=== PATIENT | female | born 1940 | race Caucasian/White ===

== ENCOUNTER → 2016-09-15 | Outpatient (CLI) | payer OTHER ==
--- NOTE | 2016-09-15 19:09 | MR ---
MRI of the Lumbar Spine Clinical Indications: Low back pain radiating into legs, right worse than left, weakness, instability . Right total hip arthroplasty on June 23, 2016. M54.16. Technique: Sagittal and axial images of the lumbar spine were acquired using T1-weighted and fast T2 -weighted sequences. Inversion recovery sagittal images were obtained. Findings: Compare May 12, 2007. Intervertebral disks are degenerated at all levels. Findings ar e mild at T10-T11, T11-T12, T12-L1, L1-L2, and L2-L3. Spinal canal is developmentally roomy. Conus me dullaris is at the level of T12-L1, and no masses are found. No compression fracture. No aneurysm of the abdominal aorta. L3-L4: Severe features of chronic disk degeneration are worse than 2007. Intervertebral disk now show s severe loss of height, with mild posterior subluxation of L4 under L3. Central spinal stenosis is m ild, but lateral recesses of the canal are moderately stenotic, with osteophytes from degenerated fac et joints and hypertrophied ligamentum flavum adding to the stenosis. L3-L4: Intervertebral disk shows severe loss of height, diffusely bulging annulus fibrosis and hypert rophied ligamentum flavum combined to cause moderate spinal stenosis, worse than 2007. L5-S1: Disk shows greater degenerative loss of signal than 2007, but diffusely bulging annulus fibros is and osteophytes remain mild. Osteophytic impingement of left foramen is slightly worse than 2007. Impression: Progression of chronic disk degeneration and spinal stenosis at L3-L4 and L4-L5.
--- NOTE | 2016-09-15 19:13 | MR ---
MRI of the pelvic without contrast History: Right total hip arthroplasty on June 23, 2016. Currently has low back pain radiating into legs, right greater than left. Sacroiliitis, M46.1. Technique: Sagittal, coronal, axial, and corrected coronal images were obtained using T1-weighted, f at-suppressed T2-weighted, and inversion recovery sequences. Findings: Artifact from distortion of magnetic field related to the right hip arthroplasty causes de gradation of details near the right hip. The left hip is moderately severely degenerated, with loss o f thickness and subchondral cysts. The cystic erosions are worse on the femoral side of the joint. Sa croiliac joints are mildly degenerated, with no edema and no erosions. Symphysis pubis is normal. No evidence of fracture. Uterus and ovaries are absent. No masses are identified in the pelvis. Moderate volume of stool is present in the rectum. Impression: 1. Right hip replacement. 2. Moderately severe degenerative arthritis of left hip. 3. Hysterectomy and oophorectomy.
== END ==
LOC: FIMAGING 15:11
PROVIDERS: ATTEND Orthopaedic Surgery
DX: M51.36 Other intervertebral disc degeneration, lumbar region (principal); M25.78 Osteophyte, vertebrae; M13.852 Other specified arthritis, left hip; Z96.641 Presence of right artificial hip joint; Z90.710 Acquired absence of both cervix and uterus; Z90.722 Acquired absence of ovaries, bilateral

== ENCOUNTER 2016-10-14 12:56 | Inpatient (IN) | payer OTHER ==
--- NOTE | 2016-10-14 13:16 | EDPHY ---
H & P Time Seen by Provider: 10/14/16 13:08 HPI/ROS: CHIEF COMPLAINT: Dyspnea HISTORY OF PRESENT ILLNESS: This patient is a 76 year old female who was referred to the Emergency Department by an Urgent Care Clinic for exertional dyspnea beginning 1-2 weeks prior to arrival and worsening over time. She tells me that she has historically been active and enjoys hiking, but over the past two weeks she has had trouble walking for a significant distance without experiencing shortness of breath. She also describes intermittent episodes of dyspnea while sleeping. She complains of associated chest discomfort but is unable to describe the type of discomfort or if the discomfort is intermittent or constant. She reports a feeling that she is off-balance. 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 She denies headache, nausea, vomiting, diarrhea, or chills. 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 No history of CAD, diabetes, or atrial fibrillation. 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 Social History: Never smoked. Daughter at bedside. Smoking Status: Never smoked Physical Exam: General Appearance: Alert, nontoxic Eyes: Pupils equal and round, no conjunctival pallor or injection ENT, Mouth: Mucous membranes moist Neck: Normal inspection Respiratory: Lungs are clear to auscultation Cardiovascular: regular tachycardia Gastrointestinal: Abdomen is soft and non- tender Neurological: A&O, nonfocal Skin: Warm and dry, no rash Extremities: Nontender, no pedal edema Psychiatric: Flat affect, tangential thought process and difficulty following conversation. Constitutional: Initial Vital Signs Temperature (C) 36.7 C 10/14/16 13:00 Heart Rate 138 H 10/14/16 13:00 Respiratory Rate 26 H 10/14/16 13:00 Blood Pressure 115/93 H 10/14/16 13:00 O2 Sat (%) 96 10/14/16 13:00 O2 Delivery Mode Room Air Allergies/Adverse Reactions: meperidine HCl [From Demerol] Allergy (Verified 10/14/16 12:57) Home Medications: Medication Instructions Recorded Herbals/Supplements -Info Only 1 each PO AD 12/24/12 Ibuprofen [Motrin (*)] 200 mg PO BID PRN 12/24/12 Levothyroxine [Synthroid 75 mcg 75 mcg PO DAILY06 12/24/12 (*)] clonazePAM [klonoPIN (*)] 1 mg PO DAILY PRN 12/24/12 Cholecalciferol (Vitamin D3) 2,000 unit PO DAILY 08/31/14 [Vitamin D3] busPIRone [Buspar (*)] 5 mg PO BID PRN 05/19/16 lamOTRIGine [Lamotrigine] 150 mg PO DAILY 10/14/16 lamOTRIGine [Lamotrigine] 200 mg PO HS 10/14/16 Medical Decision Making - Diagnostics EKG Interpretation: EKG interpreted by me reveals narrow complex tachycardia, rate 136, poor R wave progression. Imaging: Study: X-ray of the chest. Chest x-ray reviewed by me reveals left lower lobe infiltrate. The study was read by Dr. Janes Carlton, radiology, who interprets the study as: early CHF. Study: CTA of the chest Indication: Dyspnea, elevated D-dimer Results: CT angiogram of the chest was obtained. The results of the study are: 1. CHF with early pulmonary edema. 2. Coronary artery disease. 3. Chronically elevated right heart pressures 4. No acute or chronic pulmonary embolic disease. The study was read by the radiologist, Dr. Janes Carlton. I viewed the images myself on the PACS system. Study: Echocardiogram Indication:chest pain,SOB Procedure: Limited transthoracic 2D echocardiogram. A limited transthoracic echocardiogram was performed by the echocardiogram technologists and interpreted by Dr. Dimitri Shah. Results: Severe mitral regurgitation and hypokinesis the anterior wall, apex and septum. ED Course/Re-evaluation: This 76 year old female presents with dyspnea on exertion and intermittently while at rest. No known history of coronary artery disease. Plan for chest x-ray , EKG, echocardiogram, and labs including Troponin and D-dimer. Stat EKG reveals a narrow complex tachycardia, rate 136, most likely atrial flutter. IV established. 500ml IV NS administered to see if HR will slow down with IVF. No change. 1406: Labs reviewed. Troponin is negative. D-dimer is elevated at 0.62. CTA of the chest has been ordered to investigate possible pulmonary embolism and is negative. Stat echocardiogram reveals severe mitral regurgitation and hypokinesis the anterior wall, apex and septum. 1428: Consultation with Dr. Dimitri Shah, auto body worker, who will visit the patient in the ED. 1449: Dr. Dimitri Shah has visited the patient in the ED and reviewed echocardiography results. He recommends admission to the hospitalist and will proceed subsequent cardiac catheterization in 1-2 days. I discussed this plan with the patient and her daughter who are agreeable to this. Diltiazem 10mg IV given, followed by a Diltiazem drip. Repeat heart rate 100 to 110, remains in atrial fibrillation, blood pressure adequate. 1500: Consultation with Dr. Yasmine Kelly, hospitalist, who accepts admission. This patient utilized 40 minutes of critical care time exclusive of unbundled procedures. Differential Diagnosis: Differential diagnosis includes though it is not limited to pneumonia, pneumothorax, pulmonary embolism, aortic dissection, pericarditis, acute coronary syndrome. - Data Points Laboratory Results: Laboratory Results 10/14/16 13:30 10/14/16 13:30 10/14/16 10/14/16 10/14/16 13:38 13:30 13:30 WBC RBC Hgb Hct MCV MCH MCHC RDW Plt Count MPV Neut % (Auto) Lymph % (Auto) [place] % (Auto) Eos % (Auto) Baso % (Auto) Nucleat RBC Rel Count Absolute Neuts (auto) Absolute Lymphs (auto) Absolute Monos (auto) Absolute Eos (auto) Absolute Basos (auto) Absolute Nucleated RBC Immature Gran % Immature Gran # PT 13.6 SEC SEC (12.0-15.0) INR 1.05 (0.83-1.16) APTT 28.6 SEC SEC (23.0-38.0) D-Dimer Heparin Anti-Xa, Unfract Pending Sodium 141 mEq/L mEq/L (134-144) Potassium 5.1 mEq/L mEq/L (3.5-5.2) Chloride 105 mEq/L mEq/L (97-110) Carbon Dioxide 26 mEq/l mEq/l (22-31) Anion Gap 10 mEq/L mEq/L (8-16) BUN 14 mg/dL mg/dL (7-23) Creatinine 0.7 mg/dL mg/dL (0.6-1.0) Estimated GFR > 60 Glucose 75 mg/dL mg/dL (70-100) Calcium 10.0 mg/dL mg/dL (8.5-10.4) Troponin I < 0.012 ng/mL ng/mL (0-0.034) NT-Pro-B Natriuret Pep 3160 pg/mL H pg/mL (0-125) TSH 3.090 uIU/mL uIU/mL (0.465-4.680) Lamotrigine Pending 10/14/16 10/14/16 13:30 13:30 WBC 5.50 10^3/uL 10^3/uL (3.80-9.50) RBC 4.39 10^6/uL 10^6/uL (4.18-5.33) Hgb 13.0 g/dL g/dL (12.6-16.3) Hct 38.8 % % (38.0-47.0) MCV 88.4 fL fL (81.5-99.8) MCH 29.6 pg pg (27.9-34.1) MCHC 33.5 g/dL g/dL (32.4-36.7) RDW 16.7 % H % (11.5-15.2) Plt Count 215 10^3/uL 10^3/uL (150-400) MPV 10.0 fL fL (8.7-11.7) Neut % (Auto) 57.4 % % (39.3-74.2) Lymph % (Auto) 31.5 % % (15.0-45.0) [place] % (Auto) 8.7 % % (4.5-13.0) Eos % (Auto) 1.5 % % (0.6-7.6) Baso % (Auto) 0.7 % % (0.3-1.7) Nucleat RBC Rel Count 0.0 % % (0.0-0.2) Absolute Neuts (auto) 3.16 10^3/uL 10^3/uL (1.70-6.50) Absolute Lymphs (auto) 1.73 10^3/uL 10^3/uL (1.00-3.00) Absolute Monos (auto) 0.48 10^3/uL 10^3/uL (0.30-0.80) Absolute Eos (auto) 0.08 10^3/uL 10^3/uL (0.03-0.40) Absolute Basos (auto) 0.04 10^3/uL 10^3/uL (0.02-0.10) Absolute Nucleated RBC 0.00 10^3/uL 10^3/uL (0-0.01) Immature Gran % 0.2 % % (0.0-1.1) Immature Gran # 0.01 10^3/uL 10^3/uL (0.00-0.10) PT INR APTT D-Dimer 0.62 ug/mLFEU H ug/mLFEU (0.00-0.50) Heparin Anti-Xa, Unfract Sodium Potassium Chloride Carbon Dioxide Anion Gap BUN Creatinine Estimated GFR Glucose Calcium Troponin I NT-Pro-B Natriuret Pep TSH Lamotrigine Medications Given: Discontinued Medications Carvedilol (Coreg) 3.125 mg PO BID ONE Stop: 10/14/16 15:17 Last Admin: 10/14/16 16:27 Dose: Not Given Diltiazem HCl (Cardizem 25 Mg/5 Ml Vial) 10 mg IVP EDNOW ONE Stop: 10/14/16 14:51 Last Admin: 10/14/16 15:15 Dose: 10 mg Furosemide (Lasix Injection) 20 mg IVP EDNOW ONE Stop: 10/14/16 15:19 Last Admin: 10/14/16 16:30 Dose: 20 mg Heparin Sodium (Porcine) (Heparin Injection) 0 unit IVP ONCE ONE PRN Reason: Protocol Stop: 10/14/16 16:21 Last Admin: 10/14/16 17:38 Dose: 3,200 units Sodium Chloride (Ns) 1,000 mls @ 0 mls/hr IV ONCE ONE PRN Reason: Wide Open Stop: 10/14/16 13:36 Last Admin: 10/14/16 13:38 Dose: 1,000 mls Departure - Departure Disposition: [facility] Clinical Impression: Atrial flutter with rapid ventricular response Dyspnea Qualifiers: Dyspnea type: dyspnea on exertion Qualified Code(s): R06.09 - Other forms of dyspnea Congestive heart failure Qualifiers: Congestive heart failure type: unspecified congestive heart failure type Congestive heart failure chronicity: unspecified congestive heart failure chronicity Qualified Code(s): I50.9 - Heart failure, unspecified CAD (coronary artery disease) Qualifiers: Coronary Disease-Associated Artery/Lesion type: unspecified vessel or lesion type [place] vs. transplanted heart: [place] heart Associated angina: without angina Qualified Code(s): I25.10 - Atherosclerotic heart disease of [place] coronary artery without angina pectoris Condition: Fair Report Scribed for: Jodie Jeffers Report Scribed by: Kathya Carter Date of Report: 10/14/16 Time of Report: 13:16 Physician Review and Approval Statement: 10/14/16 13:16 Portions of this note were transcribed by a pediatrician/medical doctor. I personally performed a history, physical exam, medical decision making, and confirmed accuracy of information the transcribed note.
--- NOTE | 2016-10-14 13:19 | CPEKG ---
Heart Rate: 136 RR Interval: 441 P-R Interval: 82 QRSD Interval: 100 QT Interval: 324 QTC Interval: 488 P [place]: 0 QRS [place]: 106 T Wave [place]: 80 EKG Severity - ABNORMAL ECG - EKG Impression: atrial flutter EKG Impression: LATERAL INFARCT, AGE INDETERMINATE EKG Impression: BORDERLINE PROLONGED QT INTERVAL Electronically Signed By: Jodie Jeffers 14-Oct-2016 19:45:28
[2016-10-14] MEDS ORDERED: NS 1,000 ML IV ONE (13:35)
[2016-10-14 13:40] LABS: % IMMATURE GRANULYOCYTES 0.2 % (0.0-1.1); ABSOLUTE IMMATURE GRANULOCYTES 0.01 10^3/uL (0.00-0.10); ADD DIFF? NO; ADD MORPH? NO; ADD SCAN? NO; ATYPICAL LYMPHOCYTE FLAG 20 (0-99); FRAGMENT RBC FLAG 0 (0-99); HEMATOCRIT 38.8 % (38.0-47.0); LEFT SHIFT FLG 10 (0-99); LIPEMIA HEMOLYSIS FLAG 80 (0-99); MEAN CELL HEMOGLOBIN 29.6 pg (27.9-34.1); MEAN CELL HEMOGLOBIN CONCENTR. 33.5 g/dL (32.4-36.7); MEAN CELL VOLUME 88.4 fL (81.5-99.8); PLATELET CLUMPS FLAG 0 (0-99); PLATELET COUNT 215 10^3/uL (150-400); RED BLOOD CELL COUNT 4.39 10^6/uL (4.18-5.33); RED CELL DISTRIBUTION WIDTH 16.7 % (11.5-15.2)
[2016-10-14 14:00] LABS: ANION GAP 10 mEq/L (8-16); CARBON DIOXIDE 26 mEq/l (22-31); CHLORIDE 105 mEq/L (97-110); CREATININE 0.7 mg/dL (0.6-1.0); GLOMERULAR FILTRATION RATE > 60; GLUCOSE 75 mg/dL (70-100); POTASSIUM 5.1 mEq/L (3.5-5.2); SODIUM 141 mEq/L (134-144)
[2016-10-14] MEDS ORDERED: IOPAMIDOL (ISOVUE 370) 100 ML BTL IV ONE (14:08)
[2016-10-14 14:12] LABS: TROPONIN I < 0.012 ng/mL (0-0.034)
[2016-10-14] MEDS ORDERED: DILTIAZEM 25 MG/5 ML VIAL IVP ONE (14:50)
--- NOTE | 2016-10-14 15:04 | ECHO ---
[id number] + + [address] : : [place] [address] : : [phone] + + Adult Echocardiographic Report + ----+ :Name: TAY PLATA PStudy Date: 10/14/2016 01:57 PM : : Hospital Admission Number: [id number] Location : ER: :: 1940 Gender: Female Height: 66 in : :Age: 76 yrs Race: WH Weight: 111 lb : :Reason For Study: New onset flutter/tachycardia : : BSA: 1.6 meters2 : :History: Breast implants : + ----+ MMode/2D Measurements \T\ Calculations MV Diam: 3.6 cmLVOT diam: 1.9 cm LVLd ap4: 6.8 cm SV(MOD-sp4): 11.0 ml LVOT area: 2.8 cm2 EDV(MOD-sp4): 53.0 ml LVLs ap4: 6.0 cm ESV(MOD-sp4): 42.0 ml EF(MOD-sp4): 20.8 % Normal Measurement Values: + + :LVIDd (3.5-5.7cm) IVSd (0.6-1.1cm) LVPWd (0.6-1.1cm) Aortic Root (2.0-3.7cm)Left Atrium (1.5-4.0cm): :LV Vol(d) (76-115ml) LV Vol(s) (29-48ml) Ejec Fraction (50-65%)PV Tahir (0.6- 1.2m/s) TV Tahir (0.4-1.0m/s) : :MV E Tahir (0.8-1.0m/s)MV A Tahir (0.3-1.0m/s)LVOT Tahir (0.7-1.2m/s) Asc Ao Tahir ( 0.9-1.8m/s) : + + Doppler Measurements \T\ Calculations MV V2 max: Ao V2 max: LV V1 max: MR max tahir: 109.0 cm/sec 86.3 cm/sec 49.6 cm/sec 490.0 cm/sec MV max P.8 mmHg Ao max PG: LV V1 max PG: MR max PG: MV V2 mean: 3.0 mmHg 0.98 mmHg 96.0 mmHg 58.9 cm/sec Ao mean PG: LV V1 mean PG: MV mean P.0 mmHg 1.5 mmHg 1.0 mmHg MV V2 VTI: 10.3 cm Ao V2 mean: LV V1 mean: MV area (1 diam): 57.0 cm/sec 32.3 cm/sec 10.2 cm2 Ao V2 VTI: 10.2 cmLV V1 VTI: 5.5 cm ALLISON(I,D): 1.5 cm2 MVA(VTI): 1.5 cm2 MV Flow area(1diam): ALLISON(V,D): 1.6 cm2 10.2 cm2 MR(RF 1 diam): SV(MV 1 diam): TR max tahir: RF(MV,LVOT) 31.6 % 104.8 ml 251.0 cm/sec (1diam): 0.85 SI(MV 1 diam): TR max P.3 ml/m2 25.2 mmHg SV(LVOT): 15.5 ml RAP systole: 10.0 mmHg RVSP(TR): 35.2 mmHg Left Ventricle The left ventricle is normal in size. There is normal left ventricular wall thickness. EF estimate is 20-25%. LV mid/apical inferoseptal/inferior rubio are akinetic. LV basal and mid anterior rubio are akinetic. LV entire apex is akinetic. Right Ventricle The right ventricle is normal in size and function. Atria The left atrium is moderate to severely dilated. The right atrium is severely dilated. The interatrial septum is intact with no evidence for an atrial septal defect. Mitral Valve The mitral valve is normal in structure and function. There is no evidence of mitral valve prolapse. There is no mitral valve stenosis. There is moderate to severe mitral regurgitation. Tricuspid Valve Normal tricuspid valve. There is mild tricuspid regurgitation. Right ventricular systolic pressure is normal. Right ventricular systolic pressure is 40-45mmHg. Aortic Valve The aortic valve opens well. There is no aortic stenosis. There is no aortic insufficiency. Pulmonic Valve The pulmonic valve is not well visualized. There is no pulmonic valvular regurgitation. Great Vessels The aortic root is normal size. Pericardium/Pleural There is no pericardial effusion. Conclusion A complete two-dimensional transthoracic echocardiogram was performed (2D, M-mode, Doppler and color flow Doppler). Pt with breast implants - no parasternal windows for evaluation. The patient has a dilated IVC. LV mid/apical inferoseptal/inferior rubio are akinetic. LV basal and mid anterior rubio are akinetic. LV entire apex is akinetic. EF estimate is 20-25%. The left atrium is moderate to severely dilated. The right atrium is severely dilated. There is moderate to severe mitral regurgitation. There is mild tricuspid regurgitation. Right ventricular systolic pressure is 40-45mmHg. Final Reading Physician: Rama López signed on 10/14/2016 03:03 PM Ordering Physician: ROSIE HERNANDEZ Performed By: Bhakti Montanez RDCS
[2016-10-14] MEDS ORDERED: CARVEDILOL 3.125 MG TAB PO ONE (15:16)
[2016-10-14] MEDS ORDERED: FUROSEMIDE 20 MG/2 ML VIAL IVP ONE (15:18)
--- NOTE | 2016-10-14 15:57 | CPEKG ---
Heart Rate: 107 RR Interval: 561 QRSD Interval: 84 QT Interval: 348 QTC Interval: 465 QRS [place]: 114 T Wave [place]: 136 EKG Severity - ABNORMAL ECG - EKG Impression: ATRIAL FLUTTER, A-RATE 283 EKG Impression: RIGHT AXIS DEVIATION EKG Impression: LOW VOLTAGE IN FRONTAL LEADS EKG Impression: BORDERLINE R WAVE PROGRESSION, ANTERIOR LEADS EKG Impression: REPOL ABNRM SUGGESTS ISCHEMIA, ANT-LAT LEADS Electronically Signed By: Jodie Jeffers 14-Oct-2016 19:44:26
[2016-10-14] MEDS ORDERED: HEPARIN 10,000 UNIT/10 ML MDV IVP PRN (16:20)
[2016-10-14] MEDS ORDERED: ONDANSETRON 4 MG/2 ML VIAL IVP PRN (16:20)
[2016-10-14] MEDS ORDERED: HEPARIN 10,000 UNIT/10 ML MDV IVP ONE (16:20)
[2016-10-14] MEDS ORDERED: TEMAZEPAM 15 MG CAP PO PRN (16:20)
[2016-10-14] MEDS ORDERED: ACETAMINOPHEN 325 MG TAB PO PRN (16:20)
[2016-10-14] MEDS ORDERED: ONDANSETRON DISINTEGRATING 4 MG TAB PO PRN (16:20)
--- NOTE | 2016-10-14 16:25 | GCON ---
[f rep st] CONSULTATION CARDIAC CONSULTATION DATE OF CONSULTATION: 10/14/2016 CHIEF COMPLAINT: Increasing shortness of breath. HPI: This is a 76-year-old female, who comes to the emergency room complaining of dyspnea. Apparen tly, this has been happening for at least 1-2 weeks. She is here with her daughter, who confirmed t hat there have been no acute issues. She specifically denies chest pain, palpitations, syncope. Sh e has no peripheral edema. Has some apparent orthopnea and PND. In speaking to her, she has no [facility] physicians, but sees many "specialists." She has a history of traumatic brain injury with seizures and cognitive defects. She is on Lamictal by Dr. Dumont. She has apparently had a pos sible history of sleep apnea, followed by the [facility] in [place]. She apparently did not shyam ate CPAP and may have been on oxygen in the past. She has had no active bleeding issues. She is hy pothyroid and is on Synthroid. Her EKG today suggests a 2:1 atrial flutter with periods of atrial f ibrillation. This is unknown chronicity. In speaking to her, she denies any history of known coron christiano artery disease, diabetes, hypertension, hyperlipidemia. She is not being treated for any of the se. She denies any recent fevers, chills, nausea, vomiting. Apparently, according to her daughter, she does not seem to eat consistently. She has never been a smoker. PAST MEDICAL HISTORY: Hypothyroid, traumatic brain injury 1994 with cognitive issues, intermittent seizures. SOCIAL HISTORY: Nonsmoker. EXAM: GENERALLY: She is a talkative woman, who appears to be quite thin and is in no acute distres s at this time. VITAL SIGNS: Initially, her blood pressure is 126/92, heart rate to 130s. After d iltiazem, her heart rates came down into the 90s. HEENT: Mouth and oropharynx were moist. NECK: Supple without lymphadenopathy. LUNGS: Clear. She had some kyphosis, but no palpable chest pain. CARDIAC: She had irregular rhythm with systolic murmur. ABDOMEN: Soft, nontender. MUSCULOSKELET AL: Showed no edema. DATA REVIEWED: Echo was done that showed significant cardiomyopathy, probably ischemic, with region al wall motion abnormalities of apical hypokinesis. She also has significant mitral and tricuspid in sufficiency with increased RV, RA size. Pulmonary pressure is 40-45 mmHg. No pericardial effusion. ASSESSMENT: 1. Atrial fibrillation with rapid ventricular response, unknown chronicity. This could have been a s recent as a few weeks or as long-term as possibly months. She has had no syncope. She has some P ND and orthopnea, but no pedal edema. Today, there has been no acute event that we could identify. At this point, she will receive diltiazem for rate control. There are no issues of bleeding, and I will place her on a heparin drip. 2. Probable coronary artery disease. Her troponins are normal at this time, although echocardiogra m suggests ischemic wall motion abnormalities. These need to be further addressed, possibly with ca rdiac catheterization but at this point, an acute cath is not necessary. I would like to get her mo re stable with heart rate, rhythm, and diuresis. We will treat her with beta-david, MARIELY-inhibitor , and anticoagulation. 3. Atrial fibrillation once again, unknown chronicity, rate control with anticoagulation. 4. History of hypothyroidism. Her TSH is 3.0. 5. History of traumatic brain injury in 1993 with chronic cognitive defects and seizures. Her last seizure was a few days ago. She is on Lamictal, followed by Dr. Dumont by her report. Further care depending on her clinical course. Her and her daughter's questions were answered. /[id number]/MODL
[2016-10-14] MEDS ORDERED: DILTIAZEM 125 MG in D5W 125 ML IV SCH (16:30)
[2016-10-14] MEDS ORDERED: busPIRone 5 MG TAB PO PRN (16:46)
[2016-10-14 16:59] LABS: APTT 28.6 SEC (23.0-38.0); INR 1.05 (0.83-1.16); PROTIME(PATIENT) 13.6 SEC (12.0-15.0)
--- NOTE | 2016-10-14 17:30 | GHP ---
[f rep st] HISTORY AND PHYSICAL DATE OF ADMISSION: 10/14/2016 CHIEF COMPLAINT: Shortness of breath. HISTORY OF PRESENT ILLNESS: The patient is a 76-year-old female with a history of traumatic brain injury, seizure disorder, and obstructive sleep apnea who presents to the emergency department complaining of shortness of breath. She was initially seen in urgent care clinic for exertional dyspnea which has been present over the past 1-2 weeks. She endorses orthopnea and paroxysmal nocturnal dyspnea though she denies lower extremity edema. Today she felt an abrupt change in her symptoms, feeling heart palpitations and acutely worsening shortness of breath which prompted her to visit Urgent Care. She also has a history of traumatic brain injury with a subsequent seizure disorder for which she takes Lamictal. She states her last seizure was a week ago though it has been some time since she has had a grand mal seizure. She reports significant increased stress in her life and describes a son with some type of psychosis who was having acute worsening of his own symptoms, and the patient states this seemed to exacerbate her medical problems as well due to the stress. At this time, she denies headache, vision changes, chest pain, abdominal pain, nausea, vomiting, diarrhea, or fevers. In the emergency department, she was found to be in rapid atrial flutter. She was given 10 mg of IV diltiazem which slowed her rate down to approximately 100. An echocardiogram was done in the ER, which revealed marked abnormalities with hypokinesis of the left ventricle, and a cardiology consult was obtained. She was admitted to the PCU for further management. PAST MEDICAL HISTORY: 1. Traumatic brain injury in 1993 requiring craniotomy. 2. Obstructive sleep apnea. 3. History of depression. 4. Seizure disorder, on antiepileptics. 5. Hypothyroidism, status post thyroidectomy. PAST SURGICAL HISTORY: 1. Thyroidectomy. 2. Craniotomy. 3. Multiple minor surgeries including varicose vein stripping. MEDICATIONS: Please see [facility] for complete updated outpatient medication list. ALLERGIES: Meperidine. FAMILY HISTORY: Her maternal grandmother had breast cancer. Her father had bone cancer. Her mother had liver cancer. SOCIAL HISTORY: The patient lives independently. She is retired. She denies tobacco. She reports occasional alcohol use. REVIEW OF SYSTEMS: A 10-point review of systems was performed and is negative except as per HPI. OBJECTIVE: VITAL SIGNS: Temperature is 36.7, current blood pressure 133/70, heart rate 104. Heart rate on arrival was 138. Respiratory rate 16. She is 91 % on 2 L oxygen by nasal cannula. GENERAL: The patient is awake, alert, and oriented, no acute distress. HEENT: Head is atraumatic, normocephalic. Pupils equal, round, reactive to light. Extraocular muscles are intact. Oropharynx is clear. Mucous membranes are moist. NECK: Supple. She has 10 cm of JVD. HEART: Irregularly irregular with no detectable murmur. LUNGS: Revealed faint crackles at the bases. Otherwise, good air exchange without wheezing, rales, or rhonchi. ABDOMEN: Soft, nondistended, nontender. Normoactive bowel sounds. EXTREMITIES: Without cyanosis, clubbing, or edema. NEUROLOGIC: Grossly nonfocal. LABORATORY DATA: CBC is normal. D-dimer is slightly elevated at 0.62. Basic metabolic panel completely normal with creatinine of 0.7. NT proBNP is elevated at 3160. Troponin is negative. TSH is 3.090. Chest x-ray in the emergency department is reviewed by myself. Some Devante B lines are noted with small bilateral pleural effusions. Radiology read suggests findings consistent with early CHF. EKG upon arrival to the emergency department shows atrial flutter with rapid ventricular rate of [address] as possible ST elevations in anterior leads. Echocardiogram performed in the emergency department is markedly abnormal. She has a dilated inferior vena cava. There is left ventricular mid apical, inferoseptal, and inferior wall akinesis with left ventricular basal and mid anterior wall akinesis. The entire left ventricular apex is akinetic. Ejection fraction is estimated at 20% to 25%. Left atrium is moderately to severely dilated. Right atrium is severely dilated. There is moderate to severe mitral regurgitation. Her right ventricular systolic pressure is elevated at 40-45. Repeat EKG shows worsening T-wave inversions in her lateral leads. There is still some concern for T-wave elevations in her anterior leads. CT pulmonary angiogram from the emergency department is negative for pulmonary embolism. Again, suggestive of early pulmonary edema. There is also evidence of coronary artery disease noted in her LAD in addition to chronically elevated right heart pressures. ASSESSMENT AND PLAN: The patient is a 76-year-old female with a history of traumatic brain injury, seizure disorder, obstructive sleep apnea who presents to the hospital with shortness of breath and dyspnea on exertion. She is found to be in rapid atrial flutter and is admitted to the hospital for further management. 1. Dyspnea on exertion. This is in the setting of rapid atrial flutter and presumed coronary artery disease. See below for management plans. 2. Atrial flutter with rapid ventricular rate. The patient received 10 mg of IV diltiazem bolus in the emergency department. Her rate slowed down to 100. She will be given a dose of oral Coreg at this time, and we can resume the diltiazem drip as needed for rate control. Her [id number] score is at least 3 based on heart failure, age, and gender. She will be anticoagulated with a heparin drip for now. She may be able to transition to Coumadin or Eliquis, but we will start heparin at this time as she may warrant an angiogram. 3. 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 This CAD diagnosis is based on her CT scan and an akinetic left ventricle on echo. She is chest pain free at this time, but her dyspnea may be a symptom of ischemia. Heparin drip is ordered. Will also start aspirin, Coreg, and a statin and check her lipid status in the morning. I discussed the case with Dr. Shah who does not feel she warrants urgent cardiac catheterization. We will trend her troponin and follow serial EKGs for evidence of evolutionary changes. Update: repeat EKG showed deeper T wave inversions in lateral leads. I reviewed these changes with Cardiology. Her 2nd troponin is positive at 3.8, Cardiology again updated. I will make her NPO at midnight. 4. Traumatic brain injury with known seizure disorder. Her last seizure was 1 week ago. We will continue her on Lamictal and check a lamotrigine level. 5. Hypothyroidism. She is status post thyroidectomy. Her TSH is normal. We will continue her levothyroxine at her outpatient dose. 6. Depression, anxiety. We will continue her usual outpatient clonazepam and BuSpar as needed. CODE STATUS: Patient is full code. DISPOSITION: Patient was admitted to inpatient status as she will likely require greater than 48 hours of hospitalization for ongoing management of her rapid A-flutter and markedly abnormal echocardiogram. /[id number]/MODL MTDD
[2016-10-14] MEDS: HEPARIN/DEXTROSE 500 ML IV SCH (17:38)
[2016-10-14] MEDS: CARVEDILOL 3.125 MG TAB PO SCH (17:53)
[2016-10-14] MEDS: ATORVASTATIN CALCIUM 40 MG TAB PO SCH (19:18)
[2016-10-14] MEDS: lamoTRIgine 100 MG TAB PO SCH (21:21)
[2016-10-14] MEDS: DILTIAZEM 125 MG in D5W 125 ML IV ONE ×2 (22:34→22:35)
[2016-10-14] MEDS ORDERED: ASPIRIN 325 MG TAB PO ONE (22:47)
[2016-10-15] MEDS: LEVOTHYROXINE 75 MCG TAB PO SCH (05:11)
[2016-10-15] MEDS: lamoTRIgine 100 MG TAB PO SCH ×2 (07:49→19:03)
[2016-10-15] MEDS: CARVEDILOL 3.125 MG TAB PO SCH (07:49)
[2016-10-15] MEDS: ATORVASTATIN CALCIUM 40 MG TAB PO SCH (07:49)
[2016-10-15] MEDS: ASPIRIN EC 81 MG TAB PO SCH (07:49)
[2016-10-15] MEDS: FUROSEMIDE 20 MG/2 ML VIAL IVP SCH (07:50)
[2016-10-15 08:31] LABS: CHOLESTEROL 184 mg/dL (140-220); CHOLESTEROL/HDL RATIO 1.88 RATIO (1.00-4.44); HIGH DENSITY LIPOPROTEIN 98 mg/dL (40-85); LDL/HDL RATIO 0.79 RATIO (1.00-3.22); LOW DENSITY LIPOPROTEIN 77 mg/dL (80-100); NON-HIGH DENSITY LIPOPROTEIN 86 mg/dL (90-129); TRIGLYCERIDE 48 mg/dL (35-135); VERY LOW DENSITY LIPOPROTEINS 9 mg/dL (8-25)
--- NOTE | 2016-10-15 09:44 | SOAPPROG ---
SOAP Progress Note Assessment/Plan: Assessment:1 afib..?chronicity will transition to Coumadin post cath 2. ? cad ..rwma noted on echo and prob ischemic cm ..will cath tomorrow..risks outline and pt agrees 3. prob sleep apnea 4. malnutition..per family...will need to follow po intake here at [facility] Plan:1. add acsi...uptitrate coreg 10/15/16 09:45 Subjective: pt doing ok this AM....trops reviewed ? spurios level last night..will plan heart cath fro thurs..risks outlined to pt and sister Objective: Vital Signs Temp Pulse Resp BP Pulse Ox 36.4 C 89 17 110/67 96 10/15/16 07:41 10/15/16 07:41 10/15/16 07:41 10/15/16 07:41 10/15/16 07:41 10/14/16 10/15/16 10/16/16 05:59 05:59 05:59 Intake Total 987 Output Total 300 250 Balance 687 -250 PT 13.6 SEC (12.0-15.0) 10/14/16 13:38 INR 1.05 (0.83-1.16) 10/14/16 13:38 Physical Exam - Physical Exam Respiratory: lungs clear Cardiac/Chest: regular rate, rhythm, No edema, No JVD ICD10 Worksheet Patient Problems: Problems Problem Status Onset Atrial flutter with rapid ventricular response Acute CAD (coronary artery disease) Acute Congestive heart failure Acute Dyspnea Acute Breakthrough seizure Acute Confusion after a seizure Acute Dysarthria Acute Facial contusion Acute Noncompliance Acute Seizure Acute
[2016-10-15] MEDS ORDERED: TEMAZEPAM 15 MG CAP PO PRN (09:51)
[2016-10-15] MEDS: LISINOPRIL 5 MG TAB PO SCH (11:29)
[2016-10-15] MEDS ORDERED: CARVEDILOL 3.125 MG TAB PO ONE (11:30)
--- NOTE | 2016-10-15 17:46 | HOSPPROG ---
Hospitalist Progress Note Assessment/Plan: DIAGNOSIS: # Acute systolic congestive heart failure # New diagnosis rapid ventricular rate with atrial fibrillation # New systolic cardiomyopathy with several areas of wall motion abnormality of the left ventricle suspicious for coronary disease # Evidence of coronary disease on CT scan # Moderate to severe mitral regurgitation by echocardiography # Pulmonary hypertension with mitral regurgitation and sleep apnea as likely cause is # Chronic obstructive sleep apnea # Hypothyroidism on replacement therapy # History of closed head injury, seizure disorder, anxiety disorder The actual cause and significance of her elevated troponin on the 2nd of 3 measures with the 1st and 3rd being normal is not clear. It would seem unlikely an acute coronary episode would cause this pattern of change. It may have been a demand ischemia due to her rapid rate and heart failure. PLANS: - continue rate control and anticoagulation -Will need to have her on beta-david and angiotensin blockade -Coronary angiography scheduled for tomorrow -At some point would be good to have her on CPAP therapy if she is able to manage that I reviewed her case today with Dr. Dimitri Shah SUBJECTIVE: she does feel somewhat better with less shortness of breath at this time No chest pain OBJECTIVE Vitals reviewed: heart rate respiratory rate good now, blood pressure is good, no fever teletypesetter monitor: Atrial fibrillation on my review with good rate control Exam: alert oriented skin warm dry color ok resps not labored lungs clear BSs heart irregular, the systolic murmur present abd soft nondistended nontender, bowel sounds present limbs warm, little edema iv site ok Laboratory data: 2nd troponin elevated at 3.8, however 3rd troponin normal Echocardiogram showing ejection fraction reduced 20-25%, several areas of akinesis of the left ventricular wall, moderate to severe mitral regurgitation, mild pulmonary hypertension CT scan images do show evidence of some coronary artery is calcific sclerosis on my review of the images Objective: Vital Signs Temp Pulse Resp BP Pulse Ox 36.5 C 96 20 109/65 96 10/15/16 16:00 10/15/16 16:00 10/15/16 16:00 10/15/16 16:00 10/15/16 16:00 10/14/16 10/15/16 10/16/16 06:59 06:59 06:59 Intake Total 987 Output Total 300 250 Balance 687 -250 PT 13.6 SEC (12.0-15.0) 10/14/16 13:38 INR 1.05 (0.83-1.16) 10/14/16 13:38 ICD10 Worksheet Patient Problems: Problems Problem Status Onset Atrial flutter with rapid ventricular response Acute CAD (coronary artery disease) Acute Congestive heart failure Acute Dyspnea Acute Breakthrough seizure Acute Confusion after a seizure Acute Dysarthria Acute Facial contusion Acute Noncompliance Acute Seizure Acute
[2016-10-15] MEDS: CARVEDILOL 6.25 MG TAB PO SCH (18:08)
[2016-10-15] MEDS: HEPARIN/DEXTROSE 500 ML IV SCH (19:03)
[2016-10-15] MEDS: clonazePAM 1 MG TAB PO PRN (21:18)
[2016-10-16 04:53] LABS: % IMMATURE GRANULYOCYTES 0.2 % (0.0-1.1); ABSOLUTE IMMATURE GRANULOCYTES 0.01 10^3/uL (0.00-0.10); ADD DIFF? NO; ADD MORPH? NO; ADD SCAN? NO; ATYPICAL LYMPHOCYTE FLAG 10 (0-99); FRAGMENT RBC FLAG 0 (0-99); HEMATOCRIT 37.1 % (38.0-47.0); HEMOGLOBIN 12.3 g/dL (12.6-16.3); LEFT SHIFT FLG 0 (0-99); LIPEMIA HEMOLYSIS FLAG 80 (0-99); MEAN CELL HEMOGLOBIN 29.2 pg (27.9-34.1); MEAN CELL HEMOGLOBIN CONCENTR. 33.2 g/dL (32.4-36.7); MEAN CELL VOLUME 88.1 fL (81.5-99.8); MEAN PLATELET VOLUME 10.7 fL (8.7-11.7); PLATELET CLUMPS FLAG 0 (0-99); PLATELET COUNT 206 10^3/uL (150-400); RED BLOOD CELL COUNT 4.21 10^6/uL (4.18-5.33); RED CELL DISTRIBUTION WIDTH 16.5 % (11.5-15.2)
[2016-10-16 05:06] LABS: ANION GAP 5 mEq/L (8-16); CALCIUM 9.8 mg/dL (8.5-10.4); CARBON DIOXIDE 29 mEq/l (22-31); CHLORIDE 102 mEq/L (97-110); CHOLESTEROL 186 mg/dL (140-220); CHOLESTEROL/HDL RATIO 1.96 RATIO (1.00-4.44); CREATININE 0.7 mg/dL (0.6-1.0); GLOMERULAR FILTRATION RATE > 60; GLUCOSE 94 mg/dL (70-100); HIGH DENSITY LIPOPROTEIN 95 mg/dL (40-85); LDL/HDL RATIO 0.86 RATIO (1.00-3.22); LOW DENSITY LIPOPROTEIN 82 mg/dL (80-100); NON-HIGH DENSITY LIPOPROTEIN 91 mg/dL (90-129); POTASSIUM 5.5 mEq/L (3.5-5.2); SODIUM 136 mEq/L (134-144); TRIGLYCERIDE 46 mg/dL (35-135); VERY LOW DENSITY LIPOPROTEINS 9 mg/dL (8-25)
[2016-10-16 05:15] LABS: INR 1.03 (0.83-1.16); PROTIME(PATIENT) 13.4 SEC (12.0-15.0)
[2016-10-16] MEDS: LEVOTHYROXINE 75 MCG TAB PO SCH (05:44)
[2016-10-16] MEDS: lamoTRIgine 100 MG TAB PO SCH ×2 (05:47→21:25)
[2016-10-16] MEDS ORDERED: ACETAMINOPHEN 325 MG TAB PO PRN (06:00)
[2016-10-16] MEDS ORDERED: NITROGLYCERIN 0.4 MG BTL SL PRN ×2 (06:00→09:19)
[2016-10-16] MEDS ORDERED: ASPIRIN EC 325 MG TAB PO ONE ×2 (07:33→09:51)
[2016-10-16] MEDS ORDERED: FAMOTIDINE 20 MG TAB ONE (07:33)
[2016-10-16] MEDS ORDERED: diphenhydrAMINE 25 MG CAP PO ONE ×2 (07:33→09:51)
[2016-10-16] MEDS ORDERED: DIAZEPAM 5 MG TAB ONE (07:34)
--- NOTE | 2016-10-16 08:00 | CPEKG ---
Heart Rate: 133 RR Interval: 451 P-R Interval: 82 QRSD Interval: 108 QT Interval: 336 QTC Interval: 500 P [place]: 0 QRS [place]: 102 T Wave [place]: 36 EKG Severity - ABNORMAL ECG - EKG Impression: ATRIAL FLUTTER WITH 2:1 CONDUCTION EKG Impression: PROBABLE ANTEROSEPTAL INFARCT, AGE INDETERM Electronically Signed By: Dylan Montez 16-Oct-2016 09:01:11
[2016-10-16] MEDS ORDERED: LIDOCAINE 1% 30 ML SDV ONE (08:10)
[2016-10-16] MEDS ORDERED: IOPAMIDOL (ISOVUE 370) 100 ML BTL IV ONE (08:11)
[2016-10-16] MEDS ORDERED: MIDAZOLAM 2 MG/2 ML VIAL ONE (08:11)
[2016-10-16] MEDS ORDERED: fentaNYL 100 MCG/2 ML INJ ONE (08:11)
--- NOTE | 2016-10-16 09:14 | PDDXCAT ---
Diagnostic Cath Note - . Date: 10/16/16 Receiving Manager: Pablo Indication: other (...chf) - Procedure Access: right groin Procedure: left heart catheterization, left ventriculogram - Materials Left Heart Cath size: 6F - Findings-Left Heart Catheterization LM: 1. normal LAD: 1. mild LCX: 1.mild RCA: 1. dominant mild EDP: 18mmhg LVEF: global hypo 45% Complications: none Estimated blood loss: <50ml Closure method: manual pressure Assessment: 1. mild cad. 2. global lvef without rwma Plan: 1. meds..? cardioversion for afib/flutter Patient Problems: Problems Problem Status Onset Atrial flutter with rapid ventricular response Acute CAD (coronary artery disease) Acute Congestive heart failure Acute Dyspnea Acute Breakthrough seizure Acute Confusion after a seizure Acute Dysarthria Acute Facial contusion Acute Noncompliance Acute Seizure Acute
[2016-10-16] MEDS ORDERED: HYDROCODONE/APAP 5/325 TAB PO PRN (09:19)
[2016-10-16] MEDS ORDERED: OXYCODONE/APAP 5/325 TAB PO PRN (09:19)
[2016-10-16] MEDS ORDERED: ONDANSETRON 4 MG/2 ML VIAL IVP PRN (09:19)
[2016-10-16] MEDS ORDERED: ATROPINE SULFATE 1 MG/10 ML SYR IVP PRN (09:19)
[2016-10-16] MEDS ORDERED: DIAZEPAM 5 MG TAB PO ONE (09:51)
[2016-10-16] MEDS ORDERED: LIDOCAINE 2% 5 ML SDV ONE (10:53)
[2016-10-16] MEDS ORDERED: BENZOCAINE UNIT DOSE SPRAY HURRICAINE MM ONE (11:40)
[2016-10-16] MEDS ORDERED: NS 500 ML IV ONE (11:40)
[2016-10-16] MEDS ORDERED: PROPOFOL 200 MG/20 ML VIAL IVP ONE (11:40)
[2016-10-16] MEDS ORDERED: fentaNYL 100 MCG/2 ML INJ IVP ONE (11:40)
[2016-10-16] MEDS ORDERED: MIDAZOLAM 2 MG/2 ML VIAL IVP ONE (11:40)
[2016-10-16] MEDS: CARVEDILOL 6.25 MG TAB PO SCH ×2 (12:30→18:42)
[2016-10-16] MEDS: ATORVASTATIN CALCIUM 40 MG TAB PO SCH (12:31)
[2016-10-16] MEDS: LISINOPRIL 5 MG TAB PO SCH (12:31)
[2016-10-16] MEDS: ASPIRIN EC 81 MG TAB PO SCH (12:31)
[2016-10-16] MEDS: FUROSEMIDE 20 MG/2 ML VIAL IVP SCH (12:31)
--- NOTE | 2016-10-16 18:03 | HOSPPROG ---
Hospitalist Progress Note Assessment/Plan: DIAGNOSIS: # Acute systolic congestive heart failure # New diagnosis rapid ventricular rate with atrial fibrillation # New systolic cardiomyopathy with several areas of wall motion abnormality of the left ventricle suspicious for coronary disease # Evidence of coronary disease on CT scan # Moderate to severe mitral regurgitation by echocardiography # Pulmonary hypertension with mitral regurgitation and sleep apnea as likely cause's # Chronic obstructive sleep apnea # Hypothyroidism on replacement therapy # History of closed head injury, seizure disorder, anxiety disorder The actual cause and significance of her elevated troponin on the 2nd of 3 measures with the 1st and 3rd being normal is not clear. It would seem unlikely an acute coronary episode would cause this dramatic pattern of change. It may have been a demand ischemia due to her rapid rate and heart failure. PLANS: -continue rate control and anticoagulation -Will need to have her on beta-david and angiotensin blockade -At some point would be good to have her on CPAP therapy if she is able to manage that I reviewed her case today with Dr. Dimitri Shah. It is unclear whether the echocardiogram overestimated her systolic dysfunction or whether she actually had significant improvement with treatment here over night in the hospital. At this point however EF is only mildly decreased and may recover well with control of her AFib and afterload reduction. 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 Objective: Vital Signs Temp Pulse Resp BP Pulse Ox 36.8 C 112 H 19 100/60 93 10/16/16 15:08 10/16/16 15:08 10/16/16 15:08 10/16/16 15:08 10/16/16 15:08 Laboratory Results 10/16/16 04:31 10/16/16 04:21 10/15/16 10/16/16 10/17/16 06:59 06:59 06:59 Intake Total 987 1220 Output Total 300 950 900 Balance 687 270 -900 PT 13.4 SEC (12.0-15.0) 10/16/16 04:21 INR 1.03 (0.83-1.16) 10/16/16 04:21 ICD10 Worksheet Patient Problems: Problems Problem Status Onset Atrial flutter with rapid ventricular response Acute CAD (coronary artery disease) Acute Congestive heart failure Acute Dyspnea Acute Breakthrough seizure Acute Confusion after a seizure Acute Dysarthria Acute Facial contusion Acute Noncompliance Acute Seizure Acute
[2016-10-16] MEDS: clonazePAM 1 MG TAB PO PRN (21:25)
[2016-10-17] MEDS: LEVOTHYROXINE 75 MCG TAB PO SCH (06:26)
[2016-10-17] MEDS ORDERED: APIXABAN 5 MG TAB ONE (08:26)
[2016-10-17] MEDS ORDERED: PROPOFOL 200 MG/20 ML VIAL ONE (08:34)
[2016-10-17] MEDS ORDERED: fentaNYL 100 MCG/2 ML INJ ONE (08:35)
[2016-10-17] MEDS ORDERED: APIXABAN 5 MG TAB PO ONE (09:00)
--- NOTE | 2016-10-17 09:04 | CPEKG ---
Heart Rate: 92 RR Interval: 652 P-R Interval: 172 QRSD Interval: 86 QT Interval: 364 QTC Interval: 451 P [place]: 68 QRS [place]: 108 T Wave [place]: 157 EKG Severity - ABNORMAL ECG - EKG Impression: SINUS RHYTHM EKG Impression: PROBABLE LEFT ATRIAL ABNORMALITY EKG Impression: RIGHT AXIS DEVIATION EKG Impression: LOW VOLTAGE IN FRONTAL LEADS Electronically Signed By: Dylan Montez 17-Oct-2016 13:25:28
[2016-10-17] MEDS: FUROSEMIDE 20 MG/2 ML VIAL IVP SCH (10:29)
[2016-10-17] MEDS: ATORVASTATIN CALCIUM 40 MG TAB PO SCH (10:30)
[2016-10-17] MEDS: LISINOPRIL 5 MG TAB PO SCH (10:30)
[2016-10-17] MEDS: CARVEDILOL 6.25 MG TAB PO SCH ×2 (10:30→18:53)
[2016-10-17] MEDS: lamoTRIgine 100 MG TAB PO SCH ×2 (10:31→21:25)
[2016-10-17] MEDS: clonazePAM 1 MG TAB PO PRN (10:32)
[2016-10-17] MEDS: ASPIRIN EC 81 MG TAB PO SCH (10:32)
--- NOTE | 2016-10-17 12:48 | ECHO ---
[id number] + + [address] : : [place] [address] : : [phone] + + Transesophageal Echocardiographic Report + -----+ :Name: TAY PLATA PStudy Date: 10/17/2016 07:49 AM : : Hospital Admission Number: [id number] Location : C: :: 1940 Gender: Female : :Age: 76 yrs Race: WH : :Reason For Study: Pre-cardioversion : :History: AFIB : + -----+ LV The left ventricle is normal in size. Ejection Fraction = 20-25%. RV The right ventricle is grossly normal size. Atria The left atrium is moderate to severely dilated. No thrombus is detected in the left atrial appendage. The right atrium is severely dilated. Mitral Valve The mitral valve is normal in structure and function. There is moderate mitral regurgitation. Aortic Valve The aortic valve is not well visualized. Pulmonic Valve The pulmonic valve is not well visualized. Tricuspid Valve The tricuspid valve is normal in structure and function. There is mild tricuspid regurgitation. Pericardium There is no pericardial effusion. Conclusion A 2D transesophageal echocardiogram with color flow Doppler was performed. Ejection Fraction = 20-25%. The left atrium is moderate to severely dilated. No thrombus is detected in the left atrial appendage. The right atrium is severely dilated. There is moderate mitral regurgitation. The aortic valve is not well visualized. There is mild tricuspid regurgitation. Final Reading Physician: Rama Arriaza signed on 10/17/2016 12:46 PM Ordering Physician: Yasmine Kelly Performed By: Dylan Montez MD
--- NOTE | 2016-10-17 13:11 | HOSPPROG ---
Hospitalist Progress Note Assessment/Plan: procedures this admission: -Echocardiogram -Angiography -Electrical cardioversion DIAGNOSIS: # Acute systolic congestive heart failure # New diagnosis rapid ventricular rate with atrial fibrillation # New systolic cardiomyopathy, EF 20-25% by echo but 45% on angiography set the # mild diffuse nonobstructive coronary stenoses on angiography # Moderate to severe mitral regurgitation by echocardiography # Pulmonary hypertension with mitral regurgitation and sleep apnea as likely cause's # Chronic obstructive sleep apnea # Hypothyroidism on replacement therapy # History of closed head injury, seizure disorder, anxiety disorder The actual cause and significance of her elevated troponin on the 2nd of 3 measures with the 1st and 3rd being normal is not clear. It would seem unlikely an acute coronary episode would cause this dramatic pattern of change. It may have been a demand ischemia due to her rapid rate and heart failure. At this point she has been cardioverted electrically and is in sinus rhythm. Her heart failure is much improved. Will follow her over night to make sure she maintains sinus rhythm and anticipate discharge tomorrow. 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: sinus rhythm in the 70s Exam: alert oriented skin warm dry color ok resps not labored lungs clear BSs heart irregular, the systolic murmur present abd soft nondistended nontender, bowel sounds present limbs warm, little edema iv site ok Objective: Vital Signs Temp Pulse Resp BP Pulse Ox 36.8 C 93 15 81/40 L 90 L 10/17/16 12:02 10/17/16 12:02 10/17/16 12:02 10/17/16 12:02 10/17/16 12:02 Laboratory Results 10/16/16 04:31 10/16/16 04:21 10/16/16 10/17/16 10/18/16 06:59 06:59 06:59 Intake Total 1220 Output Total 950 1900 Balance 270 -1900 PT 13.4 SEC (12.0-15.0) 10/16/16 04:21 INR 1.03 (0.83-1.16) 10/16/16 04:21 ICD10 Worksheet Patient Problems: Problems Problem Status Onset Atrial flutter with rapid ventricular response Acute CAD (coronary artery disease) Acute Congestive heart failure Acute Dyspnea Acute Breakthrough seizure Acute Confusion after a seizure Acute Dysarthria Acute Facial contusion Acute Noncompliance Acute Seizure Acute
--- NOTE | 2016-10-17 14:03 | EPPROC ---
Electrophysiology Procedure Note: Procedure: CV Indication: Atrial flutter Procedure: Pt sedated with help of anesthesia staff. Once sedated, BETHANY performed which confirmed lack of SUKUMAR clot. Synchronized DCCV at 200J performed. pt converted to SR. Conclusion: Successful CV Patient Problems: Problems Problem Status Onset Atrial flutter with rapid ventricular response Acute CAD (coronary artery disease) Acute Congestive heart failure Acute Dyspnea Acute Breakthrough seizure Acute Confusion after a seizure Acute Dysarthria Acute Facial contusion Acute Noncompliance Acute Seizure Acute
--- NOTE | 2016-10-17 15:57 | PDCARPN ---
Cardiology Progress Note Chief Complaint: Patient reports anxiety, but denies of any chest pain or pressure Assessment/Plan: Assessment: 76-year-old female with known history of hypothyroidism, traumatic brain injury with cognitive issues, and intermittent seizures. Admitted to hospital on 2016 for complain of dyspnea happening 1-2 weeks. Found to be in atrial fibrillation with rapid ventricular response, elevated troponins. CTA chest showed early CHF, CAD elevated pulmonary pressures but no pulmonary embolism. Echocardiogram done on day of admission showing EF of 20-25% with mid apical inferior septal inferior wall akinetic, base and mid anterior rubio are also akinetic, and the entire apex is akinetic. LA moderate to severely dilated, RA severely dilated, moderate to severe MR, mild TR, RVSP was estimated at 40-45 mm Hg. Cardiac catheterization on 10/16/2016 mild CAD, but no flow limiting disease. BETHANY done on the same day as catheterization, showed EF 20-25%, LA moderate to severely dilated, RA severely dilated, moderate MR, mild TR. No cardioversion was performed at that time due to patient being very anxious, and unable to get informed consent from patient's daughter. Today she had a repeat BETHANY done, by Dr. Montez, and successfully cardioverted to sinus rhythm. She has been started on beta-david, Sacha inhibitor, an IV diuretic for her nonischemic cardiomyopathy. She has also been started on aspirin and atorvastatin for her non flow limiting CAD. Patient's balance net balance is 1900 since hospital admission. Plan: Paroxysmal atrial fibrillation: BETHANY/cardioversion done this morning, remains in sinus rhythm, no arrhythmias noted. Continue on current dose of carvedilol for rate and rhythm control, she has been started on Eliquis for anticoagulation (CHADSVAS score of 3). Acute systolic congestive heart failure: Has improved with IV diuresis. Will transfer over to oral diuretics today. Nonischemic cardiomyopathy: Has been instituted on beta-david of carvedilol, SACHA-inhibitor of lisinopril. Will plan as an outpatient to have re-evaluation of LV function in 90 days after being on max medical therapy. Chronic obstructive sleep apnea: Further evaluation as outpatient. 10/17/16 15:54 Subjective: Patient reports feeling well after cardioversion, denies of any palpitations, chest pain, shortness of breath, lightheadedness, Reviewed/Discussed With: hospitalist (Dr Ricks), other (Dr Montez) Objective: Vital Signs (8 Hrs) Temp Pulse Resp BP Pulse Ox 10/17/16 12:02 36.8 C 93 15 81/40 L 90 L 10/17/16 10:30 72 109/65 10/17/16 10:08 36.5 C 72 14 109/65 96 Intake/Output (24 Hrs) 10/16/16 10/17/16 10/18/16 05:59 05:59 05:59 Intake Total 1220 Output Total 950 1900 Balance 270 -1900 Intake: Oral (ml) 600 IV Infused (ml) 620 Diltiazem 125 mg In D5w 160 125 ml @ Per Protocol IV CONT NENO Rx#:[id number] Heparin/Dextrose 500 ml @ 460 Per Protocol IV CONT NENO Rx#:[id number] Output: Urine (ml) 950 1900 Toilet 950 1900 Other: Weight 52.6 kg 52.6 kg Intake Quantity Yes Yes Sufficient Result Diagrams: 10/16/16 04:31 10/16/16 04:21 Cardiac Labs: Cardiac Lab Results (72 Hrs) 10/14/16 10/14/16 23:30 18:00 Troponin I < 0.012 3.820 H - Physical Exam Constitutional: WDWN, healthy appearing Ears, Nose, Mouth, Throat: moist mucous membranes Cardiovascular: regular rate and rhythm, systolic murmur (2/6 systolic murmur along left sternal border), pulses symmetric bilat, No jugular vein distention, No carotid bruit Peripheral Pulses: 1+: dorsalis-pedis (R), dorsalis-pedis (L), 2+: carotid (R), carotid (L) Respiratory: clear to auscultate bilat, no crackles, no wheezes, No expiratory wheeze, No inspiratory crackles Gastrointestinal: normoactive bowel sounds Skin: no rashes, warm, no edema Neurologic: AAOx3 Psychiatric: cooperative, interactive, following commands ICD10 Worksheet Patient Problems: Problems Problem Status Onset Seizure Acute Breakthrough seizure Acute Noncompliance Acute Dysarthria Acute Confusion after a seizure Acute Facial contusion Acute Dyspnea Acute Congestive heart failure Acute CAD (coronary artery disease) Acute Atrial flutter with rapid ventricular response Acute
[2016-10-17 19:07] LABS: ANION GAP 8 mEq/L (8-16); CALCIUM 9.5 mg/dL (8.5-10.4); CARBON DIOXIDE 27 mEq/l (22-31); CHLORIDE 105 mEq/L (97-110); CREATININE 0.7 mg/dL (0.6-1.0); GLOMERULAR FILTRATION RATE > 60; GLUCOSE 99 mg/dL (70-100); POTASSIUM 3.8 mEq/L (3.5-5.2); SODIUM 140 mEq/L (134-144)
[2016-10-17] MEDS: APIXABAN 5 MG TAB PO SCH (21:24)
[2016-10-18] MEDS: LEVOTHYROXINE 75 MCG TAB PO SCH (05:50)
[2016-10-18 05:55] LABS: ANION GAP 8 mEq/L (8-16); CALCIUM 9.2 mg/dL (8.5-10.4); CARBON DIOXIDE 24 mEq/l (22-31); CHLORIDE 105 mEq/L (97-110); CREATININE 0.6 mg/dL (0.6-1.0); GLOMERULAR FILTRATION RATE > 60; GLUCOSE 87 mg/dL (70-100); POTASSIUM 4.4 mEq/L (3.5-5.2); SODIUM 137 mEq/L (134-144)
[2016-10-18] MEDS ORDERED: FUROSEMIDE 20 MG TAB PO SCH (09:00)
[2016-10-18] MEDS: ASPIRIN EC 81 MG TAB PO SCH (10:06)
[2016-10-18] MEDS: LISINOPRIL 5 MG TAB PO SCH (10:06)
[2016-10-18] MEDS: CARVEDILOL 6.25 MG TAB PO SCH (10:06)
[2016-10-18] MEDS: ATORVASTATIN CALCIUM 40 MG TAB PO SCH (10:06)
[2016-10-18] MEDS: lamoTRIgine 100 MG TAB PO SCH (10:07)
[2016-10-18] MEDS: APIXABAN 5 MG TAB PO SCH (10:08)
[2016-10-18 11:16] VITALS: BP 116/64; PULSE 98; RESP 12; TEMP 98; O2SAT 91
--- NOTE | 2016-10-18 13:54 | PDCARPN ---
Cardiology Progress Note Assessment/Plan: Paroxysmal Atrial Fibrillation- presented in persistent atrial fibrillation with RVR of unknown duration. Now in normal sinus rhythm following BETHANY/ cardioversion yesterday. > Continue beta david. > Continue Eliquis for systemic anticoagulation/stroke prophylaxis for one month. Eliquis may prove to be cost prohibitive for her. Could then be transitioned to warfarin and referred to anticoagulation clinic. Nonischemic Cardiomyopathy- severely reduced LV systolic function. Likely tachycardia mediated secondary to persistent atrial fibrillation/RVR. Appears to be volume compensated. > Continue david, MARIELY inhibitor, and loop diaphoretic. > Can add aldosterone antagonist as an outpatient. Coronary Artery Disease- [id number] CAD on catheterization. > Aspirin and statin therapy in addition to the other components of her secondary prevention/cardiomyopathy/CHF regimen. Disposition-appears to be stable for discharge today. > Office staff at [facility] has been instructed to contact the patient to arrange followup in 1 to 2 weeks. 10/18/16 13:49 Subjective: No complaints. Reviewed/Discussed With: family, hospitalist Objective: Vital Signs (8 Hrs) Temp Pulse Resp BP Pulse Ox 10/18/16 11:14 36.7 C 98 12 116/64 91 L 10/18/16 10:06 80 109/62 10/18/16 07:55 36.3 C 80 16 109/62 94 Intake/Output (24 Hrs) 10/17/16 10/18/16 10/19/16 05:59 05:59 05:59 Intake Total 200 Output Total 1900 300 Balance -1900 -100 Intake: Oral (ml) 200 Output: Urine (ml) 1900 300 Toilet 1900 300 Other: Weight 52.6 kg 53.3 kg Intake Quantity Yes Yes Sufficient Result Diagrams: 10/16/16 04:31 10/18/16 04:24 - Physical Exam Constitutional: no apparent distress Eyes: anicteric sclera Ears, Nose, Mouth, Throat: moist mucous membranes Cardiovascular: regular rate and rhythm, no murmurs, no gallops Respiratory: clear to auscultate bilat Gastrointestinal: normoactive bowel sounds, no tenderness, no masses Skin: no rashes, no edema Neurologic: AAOx3 Psychiatric: not anxious ICD10 Worksheet Patient Problems: Problems Problem Status Onset Seizure Acute Breakthrough seizure Acute Noncompliance Acute Dysarthria Acute Confusion after a seizure Acute Facial contusion Acute Dyspnea Acute Congestive heart failure Acute CAD (coronary artery disease) Acute Atrial flutter with rapid ventricular response Acute
--- NOTE | 2016-10-18 20:46 | GDS ---
[f rep st] DISCHARGE SUMMARY DISCHARGE DIAGNOSES: 1. Paroxysmal atrial fibrillation with rapid ventricular rate, status post transesophageal echocard iogram cardioversion, now in normal sinus rhythm. 2. Nonischemic cardiomyopathy. 3. Vuc-uony-fuxikwfn coronary artery disease on coronary angiogram. 4. Acute systolic heart failure, with an ejection fraction of 20% to 25% on echo, but 45% on angiog marta. 5. Moderate to severe mitral regurgitation. 6. Pulmonary hypertension. 7. Chronic obstructive sleep apnea. 8. Hypothyroidism. 9. History of closed head injury. 10. Seizure disorder. CONSULTANTS: Dr. Dimitri Shah of cardiology. IMAGING STUDIES AND PROCEDURES: 1. Chest x-ray on October 14, 2016, showed findings consistent with early heart failure. 2. Echocardiogram on October 14, 2016, showed akinesis of the entire left ventricular apex in duke tion to an akinetic left ventricular basal, mid anterior, mid apical, and inferoseptal wall, with an ejection fraction estimated at 20% to 25%. The left atrium was moderately to severely dilated. Th e right atrium was severely dilated. There was moderate to severe mitral regurgitation. The right ventricular systolic pressure was 40-[address] pulmonary angiogram on October 14, 2016, again showed findings consistent with heart failure and early pulmonary edema. Coronary artery disease was noted, as well as chronically elevated righ t heart pressures. There was no evidence of pulmonary embolism. 4. Transesophageal echocardiogram on October 16, 2016, again showed an EF of 20% to 25%. No throm bus was detected in the left atrial appendage. 5. Left heart catheterization on October 16, 2016, showed mild coronary artery disease of the left anterior descending, left circumflex, and right coronary, with a left ventricular ejection fraction of 45% with evidence of global hypokinesis. 6. DC cardioversion at 200 joules performed on October 17, 2016, with successful conversion to a n ormal sinus rhythm. HISTORY: For details, please see the dictated history and physical dated October 14, 2016. In paddy ef, the patient is a 76-year-old female with a history of traumatic brain injury with subsequent sei zure disorder and obstructive sleep apnea who presented to the emergency department with shortness o f breath. She was found to be in rapid Aflutter and mild heart failure, and she was admitted to the hospital for further management. HOSPITAL COURSE: The patient was admitted to the telemetry unit. For her rapid Aflutter, she recei geetha 10 mg of IV diltiazem and was started on oral Coreg. Her [id number] score was at least 3. Shivam calderon was started on a heparin drip for anticoagulation. Her CT pulmonary angiogram was negative for PE , though coronary artery disease was noted. She underwent an echocardiogram which revealed global h ypokinesis as described above. She was found to be in mild heart failure, likely due to her rapid a trial flutter. She was diuresed and will be discharged home on oral Lasix. Cardiology was consulte d. She was started on aspirin and continued on Coreg. A statin was added. Serial troponins were f ollowed. Her first troponin was negative. Her second troponin was positive at 3.8, and her third t roponin was negative, which is a little odd but may have represented strain in the setting of rapid AFib. She did undergo a coronary angiogram as above. This revealed gux-wrhv-erutobrt coronary loc ry stenosis with a nonischemic cardiomyopathy. She ultimately underwent BETHANY cardioversion for her r apid Aflutter, and she has maintained a sinus rhythm since then. DISPOSITION: The patient is discharged home in stable condition. FOLLOWUP: 1. Dr. Candido Duffy of the [facility] in 1-2 weeks. 2. Primary care. DISCHARGE MEDICATIONS: Please see [place] for the complete updated outpatient medication list. New medications on discharge include Eliquis 5 mg p.o. b.i.d., #60, no refills, aspirin 81 mg p.o. d aily, #30, no refills, Lipitor 40 mg p.o. daily, #30, no refills, Coreg 6.25 mg p.o. b.i.d., #60, no refills, Lasix 20 mg p.o. daily, #30, no refills, lisinopril 5 mg p.o. daily, #30, no refills. Con tinue all other outpatient medications as prescribed. /[id number]/MODL
== END 2016-10-18 15:06 | disposition home or self-care (01) | DRG 286 ==
LOC: F2W 16:55
PROVIDERS: ADMIT Hospitalist; ATTEND Hospitalist
PROC: 4A023N7 Measurement of Cardiac Sampling and Pressure, Left Heart, Percutaneous Approach (ICD-10-PCS; principal; 2016-10-16)
PROC: B2111ZZ Fluoroscopy of Multiple Coronary Arteries using Low Osmolar Contrast (ICD-10-PCS; principal; 2016-10-16)
PROC: B2151ZZ Fluoroscopy of Left Heart using Low Osmolar Contrast (ICD-10-PCS; principal; 2016-10-16)
PROC: B246ZZ4 Ultrasonography of Right and Left Heart, Transesophageal (ICD-10-PCS; principal; 2016-10-16)
PROC: 5A2204Z Restoration of Cardiac Rhythm, Single (ICD-10-PCS; 2016-10-17)
PROC: B246ZZ4 Ultrasonography of Right and Left Heart, Transesophageal (ICD-10-PCS; 2016-10-17)
DX: I48.92 Unspecified atrial flutter (principal); I50.21 Acute systolic (congestive) heart failure; I43 Cardiomyopathy in diseases classified elsewhere; I34.0 Nonrheumatic mitral (valve) insufficiency; I27.2 Other secondary pulmonary hypertension; G47.33 Obstructive sleep apnea (adult) (pediatric); E03.8 Other specified hypothyroidism; Z87.820 Personal history of traumatic brain injury; R56.1 Post traumatic seizures; R41.89 Other symptoms and signs involving cognitive functions and awareness
CPT/HCPCS: 80175-90; 85520-90; 96374; 97161-GP; 97165-GO; G8978-GP-CH; G8979-GP-CH; G8980-GP-CH; G8987-GO-CI; G8988-GO-CI; G8989-GO-CI; J0461; J1644; J2250; J2704; J3010; Q9967

== ENCOUNTER → 2016-10-29 | Outpatient (CLI) | payer OTHER | LOC: BHLMT 10:15 | PROVIDERS: ATTEND Internal Medicine Interventional Cardiology | DX: I48.0 Paroxysmal atrial fibrillation (principal); I25.10 Atherosclerotic heart disease of native coronary artery without angina pectoris; I48.92 Unspecified atrial flutter; I50.22 Chronic systolic (congestive) heart failure; I42.8 Other cardiomyopathies; I10 Essential (primary) hypertension; I34.0 Nonrheumatic mitral (valve) insufficiency | CPT/HCPCS: 93005-PO ==

== ENCOUNTER 2016-10-31 11:59 | Day surgery (SDC) | payer OTHER ==
[2016-10-31] MEDS ORDERED: NS 500 ML IV ONE (12:14)
[2016-10-31] MEDS ORDERED: MIDAZOLAM 2 MG/2 ML VIAL IVP ONE (12:14)
[2016-10-31] MEDS ORDERED: PROPOFOL 200 MG/20 ML VIAL IVP ONE (12:14)
--- NOTE | 2016-10-31 12:34 | CPEKG ---
Heart Rate: 72 RR Interval: 833 QRSD Interval: 80 QT Interval: 368 QTC Interval: 403 QRS [place]: 122 T Wave [place]: 123 EKG Severity - ABNORMAL ECG - EKG Impression: ATRIAL FLUTTER, A-RATE 267 EKG Impression: MULTIFORM VENTRICULAR PREMATURE COMPLEXES EKG Impression: LEFT POSTERIOR FASCICULAR BLOCK EKG Impression: LOW VOLTAGE IN FRONTAL LEADS EKG Impression: CONSIDER ANTEROSEPTAL INFARCT EKG Impression: REPOL ABNRM SUGGESTS ISCHEMIA, DIFFUSE LEADS Electronically Signed By: You Viera 31-Oct-2016 14:37:03
[2016-10-31 13:06] LABS: INR 1.28 (0.83-1.16)
[2016-10-31 13:07] LABS: APTT 33.1 SEC (23.0-38.0)
[2016-10-31 13:23] LABS: ANION GAP 10 mEq/L (8-16); CALCIUM 10.2 mg/dL (8.5-10.4); CARBON DIOXIDE 27 mEq/l (22-31); CHLORIDE 101 mEq/L (97-110); CREATININE 0.7 mg/dL (0.6-1.0); GLOMERULAR FILTRATION RATE > 60; GLUCOSE 83 mg/dL (70-100); POTASSIUM 4.6 mEq/L (3.5-5.2); SODIUM 138 mEq/L (134-144)
[2016-10-31] MEDS ORDERED: ATROPINE SULFATE 1 MG/10 ML SYR ONE (13:44)
--- NOTE | 2016-10-31 14:02 | PDTEE1 ---
BETHANY Cardioversion Procedure Procedure: Electrical Cardioversion Indications: Other (Atrial Flutter) Procedural Details: Pads were placed in anterior-posterior position. BETHANY probe was advanced and standard images obtained. There is no evidence of left atrial or left atrial appendage thrombus. Synchronized cardioversion attempt #1: 100J Conclusions: Successful Cardioversion Patient Problems: Problems Problem Status Onset Atrial flutter with rapid ventricular response Acute Breakthrough seizure Acute CAD (coronary artery disease) Acute Confusion after a seizure Acute Congestive heart failure Acute Dysarthria Acute Dyspnea Acute Facial contusion Acute Noncompliance Acute Seizure Acute
--- NOTE | 2016-10-31 14:02 | CPEKG ---
Heart Rate: 73 RR Interval: 822 P-R Interval: 184 QRSD Interval: 84 QT Interval: 412 QTC Interval: 454 P [place]: 62 QRS [place]: 121 T Wave [place]: 117 EKG Severity - ABNORMAL ECG - EKG Impression: SINUS RHYTHM EKG Impression: ATRIAL PREMATURE COMPLEX EKG Impression: LEFT POSTERIOR FASCICULAR BLOCK EKG Impression: LOW VOLTAGE IN FRONTAL LEADS EKG Impression: BORDERLINE R WAVE PROGRESSION, ANTERIOR LEADS EKG Impression: ABNORMAL T, CONSIDER ISCHEMIA, ANT-LAT LEADS Electronically Signed By: You Viera 31-Oct-2016 14:36:54
== END 2016-10-31 16:00 | disposition home or self-care (01) ==
LOC: FCATH 11:59
PROVIDERS: ATTEND Internal Medicine Interventional Cardiology
PROC: B245ZZ4 Ultrasonography of Left Heart, Transesophageal (ICD-10-PCS; principal; 2016-10-31)
PROC: 5A2204Z Restoration of Cardiac Rhythm, Single (ICD-10-PCS; principal; 2016-10-31)
DX: I50.22 Chronic systolic (congestive) heart failure (principal); I25.10 Atherosclerotic heart disease of native coronary artery without angina pectoris; I48.0 Paroxysmal atrial fibrillation; I48.92 Unspecified atrial flutter; I42.8 Other cardiomyopathies; G40.909 Epilepsy, unspecified, not intractable, without status epilepticus; I10 Essential (primary) hypertension; I34.0 Nonrheumatic mitral (valve) insufficiency
CPT/HCPCS: J0461; J2250; J2704

== ENCOUNTER → 2016-11-04 | Outpatient (CLI) | payer OTHER | LOC: BHLMT 14:15 | PROVIDERS: ATTEND Internal Medicine Interventional Cardiology | DX: I48.0 Paroxysmal atrial fibrillation (principal) | CPT/HCPCS: 93005-PO ==

== ENCOUNTER → 2016-11-09 | Outpatient (CLI) | payer OTHER | LOC: FCPNEURO 21:30 | PROVIDERS: ATTEND Psychiatry & Neurology Sleep Medicine | DX: G47.33 Obstructive sleep apnea (adult) (pediatric) (principal) ==

== ENCOUNTER 2016-11-13 10:08 | Observation (INO) | payer OTHER ==
--- NOTE | 2016-11-13 10:30 | CPEKG ---
Heart Rate: 134 RR Interval: 448 QRSD Interval: 130 QT Interval: 368 QTC Interval: 550 QRS [place]: 114 T Wave [place]: 265 EKG Severity - ABNORMAL ECG - EKG Impression: A-FLUTTER W/ VARIED AV BLOCK, A-RATE 272 EKG Impression: RBBB AND LPFB Electronically Signed By: Nanda Ivory 13-Nov-2016 15:40:10
--- NOTE | 2016-11-13 10:34 | EDPHY ---
H & P Stated Complaint: ELEVATED HR X1 MONTH, WORSE OVER THE PAST 3 DAYS Time Seen by Provider: 11/13/16 10:30 HPI/ROS: CHIEF COMPLAINT: Atrial flutter HISTORY OF PRESENT ILLNESS: The patient is a 76 year old female with history of TBI, CHF, and atrial flutter, who presents with concerns for tachycardia. The patient goes in and out of atrial flutter. For the past 3 days she reports heart rate reaching 142. Her daughter spoke to Dr. Duffy who told her she is fine as long as she does not feel symptoms of flutter. Daughter states the patient is restless and has difficulty sleeping. Patient complains of mild chest pain and slight dizziness. She takes Diltiazem daily, recently increased dosage from 120 to 180. Patient is nervous about her elevated heart rate. She also feels more anxious because she is going to assisted living tomorrow. She takes Aspirin daily as well as Eliquis. She denies fever, chills, shortness of breath, palpitations, vomiting, diarrhea, urinary complaints, or headache. REVIEW OF SYSTEMS: Aside from elements discussed in the HPI, a comprehensive 10-point review of systems was reviewed and is negative. PAST MEDICAL HISTORY: 1. TBI requiring craniotomy. 2. Obstructive sleep apnea. 3. History of depression. 4. Seizure disorder. 5. Hypothyroidism. 6. Atrial flutter. PSH: Thyroidectomy, Craniotomy. SOCIAL HISTORY: Daughter at bedside. Moving to assisted living tomorrow. VITAL SIGNS: Reviewed by me GENERAL: Well-developed, well-nourished, resting comfortably in no respiratory distress. HEENT: Atraumatic. Eyes: No icterus, no injection. Mouth: moist mucous membranes. No erythema or lesions. Neck: supple with no adenopathy. LUNGS: Clear to auscultation bilaterally, Diminished breath sounds throughout, CARDIAC: Extreme tachycardia, no rubs, murmurs or gallops. ABDOMEN: Soft, nontender, nondistended, bowel sounds normal. BACK: No CVA tenderness. EXTREMITIES: No trauma. No edema. Range of motion is normal throughout. Pulses are 2+. NEURO: Alert and oriented, grossly nonfocal. SKIN: Warm and dry, no rash. PSYCHIATRIC: Normal mentation, no agitation. Portions of this note were transcribed by a medical records tech. I personally performed a history, physical exam, medical decision making, and confirmed accuracy of information the transcribed note. - Personal History Current Tetanus/Diphtheria Vaccine: Yes Current Tetanus Diphtheria and Acellular Pertussis (TDAP): Yes - Medical/Surgical History Hx Asthma: No Hx Chronic Respiratory Disease: No Hx Diabetes: No Hx Cardiac Disease: No Hx Renal Disease: No Hx Cirrhosis: No Hx Alcoholism: No Hx HIV/AIDS: No Hx Splenectomy or Spleen Trauma: No Other PMH: SZ s/p TBI, neuropathy, hypothyroid, AFLUTTER - Social History Smoking Status: Never smoked Constitutional: Initial Vital Signs Temperature (C) 36.3 C 11/13/16 10:09 Heart Rate 136 H 11/13/16 10:09 Respiratory Rate 20 11/13/16 10:09 Blood Pressure 127/97 H 11/13/16 10:09 O2 Sat (%) 95 11/13/16 10:09 O2 Delivery Mode Nasal Cannula O2 (L/minute) 1 Allergies/Adverse Reactions: meperidine HCl [From Demerol] Allergy (Verified 10/14/16 12:57) Home Medications: Medication Instructions Recorded Levothyroxine [Synthroid 75 mcg 75 mcg PO DAILY06 12/24/12 (*)] clonazePAM [klonoPIN (*)] 1 mg PO DAILY PRN 12/24/12 Cholecalciferol (Vitamin D3) 2,000 unit PO DAILY 08/31/14 [Vitamin D3] busPIRone [Buspar (*)] 5 mg PO BID PRN 05/19/16 lamOTRIGine [Lamotrigine] 150 mg PO DAILY 10/14/16 lamOTRIGine [Lamotrigine] 200 mg PO HS 10/14/16 Apixaban [Eliquis] 5 mg PO BID #60 tab 10/18/16 Aspirin EC [Aspirin EC 81 mg (*)] 81 mg PO DAILY #30 tab 10/18/16 Atorvastatin Calcium [Lipitor 40 40 mg PO DAILY #30 tab 10/18/16 mg (*)] Carvedilol [Coreg (*)] 6.25 mg PO BIDMEAL #60 tab 10/18/16 Furosemide [Lasix 20 MG (*)] 20 mg PO DAILY #30 tab 10/18/16 Lisinopril [Zestril 5 mg (*)] 5 mg PO DAILY #30 tab 10/18/16 DILTIAZEM HCL [DILTIAZEM 24HR ER] 180 mg PO DAILY 11/13/16 Propafenone HCl Sr [Rythmol Sr 225 mg PO BID 11/13/16 225mg (*)] Medical Decision Making - Diagnostics EKG Interpretation: The 12 lead EKG was interpreted by myself. See hard copy and/or "tracemaster" electronic copy for interpretation: Atrial flutter with varied AV block A-rate 272. RBBB and LPFB. Imaging: X-ray: chest was obtained. I viewed the images myself on the PACS system. My interpretation of the images is: Stable. The radiologist interpretation is negative for acute abnormality with resolution of previously seen findings of congestive heart failure. I discussed the x-ray findings with the patient. ED Course/Re-evaluation: Patient has extreme tachycardia. She was placed on hall monitor. HR remains in 130s. Plan to administer 20mg Diltiazem. Following the diltiazem bolus the patient's heart rate decreased to the 100 range. Patient was placed on diltiazem drip. Her rate remains 90-100. Remainder of the patient's laboratory evaluation is reassuring. Patient has a normal troponin. Patient will be admitted to the hospitalist service. She was evaluated in the emergency department by Dr. Duffy. Patient was admitted to the hospitalist service, Dr. Elmer Nguyen. Differential Diagnosis: Differential diagnosis of the patient's narrow complex tachycardia was considered including but not limited to various causes of sinus tachycardia, SVT , atrial flutter and atrial fibrillation. Differential diagnosis of the patient 's presenting complaint was considered including but not limited to a arrhythmias, coronary artery disease, supraventricular arrhythmias, electrolyte abnormalities, anxiety, medication noncompliance. Consult/Admit Bed Type: Dr. Elmer Nguyen, U - Data Points Laboratory Results: Laboratory Results 11/13/16 10:28 11/13/16 10:28 Medications Given: Discontinued Medications Diltiazem HCl (Cardizem 25 Mg/5 Ml Vial) 20 mg IVP EDNOW ONE Stop: 11/13/16 10:59 Last Admin: 11/13/16 11:23 Dose: 20 mg Diltiazem HCl 125 mg/ Dextrose 125 mls @ 0 mls/hr IV EDNOW ONE; As Directed PRN Reason: Protocol Stop: 11/13/16 11:13 Last Admin: 11/13/16 12:14 Dose: 125 mls Lorazepam (Ativan Injection) 1 mg IVP EDNOW ONE Stop: 11/13/16 12:52 Last Admin: 11/13/16 13:12 Dose: Not Given Departure - Departure Disposition: [facility] In[facility] Acute Clinical Impression: Atrial flutter, Dizziness, Chest pain Condition: Fair Report Scribed for: Nanda Ivory Report Scribed by: Nicole Marte Date of Report: 11/13/16 Time of Report: 10:44
[2016-11-13] MEDS ORDERED: DILTIAZEM 25 MG/5 ML VIAL IVP ONE (10:58)
[2016-11-13 11:06] LABS: % IMMATURE GRANULYOCYTES 0.3 % (0.0-1.1); ABSOLUTE IMMATURE GRANULOCYTES 0.02 10^3/uL (0.00-0.10); ADD DIFF? NO; ADD MORPH? NO; ADD SCAN? NO; ATYPICAL LYMPHOCYTE FLAG 10 (0-99); FRAGMENT RBC FLAG 0 (0-99); HEMATOCRIT 40.8 % (38.0-47.0); HEMOGLOBIN 13.6 g/dL (12.6-16.3); LEFT SHIFT FLG 0 (0-99); LIPEMIA HEMOLYSIS FLAG 80 (0-99); MEAN CELL HEMOGLOBIN 29.2 pg (27.9-34.1); MEAN CELL HEMOGLOBIN CONCENTR. 33.3 g/dL (32.4-36.7); MEAN CELL VOLUME 87.6 fL (81.5-99.8); MEAN PLATELET VOLUME 10.2 fL (8.7-11.7); PLATELET CLUMPS FLAG 0 (0-99); PLATELET COUNT 283 10^3/uL (150-400); RED BLOOD CELL COUNT 4.66 10^6/uL (4.18-5.33); RED CELL DISTRIBUTION WIDTH 15.4 % (11.5-15.2)
[2016-11-13 11:11] LABS: ANION GAP 11 mEq/L (8-16); CALCIUM 10.3 mg/dL (8.5-10.4); CARBON DIOXIDE 24 mEq/l (22-31); CHLORIDE 101 mEq/L (97-110); CREATININE 0.7 mg/dL (0.6-1.0); GLOMERULAR FILTRATION RATE > 60; GLUCOSE 76 mg/dL (70-100); POTASSIUM 4.5 mEq/L (3.5-5.2); SODIUM 136 mEq/L (134-144)
[2016-11-13] MEDS ORDERED: DILTIAZEM 125 MG in D5W 125 ML IV ONE (11:12)
[2016-11-13 11:24] LABS: TROPONIN I < 0.012 ng/mL (0-0.034)
--- NOTE | 2016-11-13 12:38 | CPEKG ---
Heart Rate: 116 RR Interval: 517 QRSD Interval: 114 QT Interval: 364 QTC Interval: 506 QRS [place]: 103 T Wave [place]: 91 EKG Severity - ABNORMAL ECG - EKG Impression: ATRIAL FLUTTER, A-RATE 272 EKG Impression: LEFT POSTERIOR FASCICULAR BLOCK EKG Impression: ABNRM R PROG, CONSIDER ASMI OR LEAD PLACEMENT Electronically Signed By: Nanda Ivory 13-Nov-2016 15:40:03
[2016-11-13] MEDS ORDERED: LORazepam 2 MG/ML INJ IVP ONE (12:51)
[2016-11-13] MEDS ORDERED: LORazepam 0.5 MG TAB PO PRN (13:57)
[2016-11-13] MEDS ORDERED: ACETAMINOPHEN 325 MG TAB PO PRN (13:57)
[2016-11-13] MEDS ORDERED: LORazepam 2 MG/ML INJ IVP PRN (13:57)
[2016-11-13] MEDS ORDERED: ONDANSETRON DISINTEGRATING 4 MG TAB PO PRN (13:57)
[2016-11-13] MEDS ORDERED: oxyCODONE IR 5 MG TAB PO PRN (13:57)
[2016-11-13] MEDS ORDERED: ONDANSETRON 4 MG/2 ML VIAL IVP PRN (13:57)
[2016-11-13] MEDS ORDERED: NS 1,000 ML IV SCH (14:00)
[2016-11-13] MEDS ORDERED: clonazePAM 1 MG TAB PO PRN (14:02)
[2016-11-13] MEDS ORDERED: busPIRone 5 MG TAB PO PRN (14:02)
--- NOTE | 2016-11-13 14:14 | PDGENHP ---
History and Physical - Chief Complaint elevated HR - History of Present Illness 76 yo F with PMH of TBI, non ischemic systolic heart failure and related sz d/o as well as recent diagnosis of a fib/flutter s/p CV last month presenting with 3 days of tachycardia to the 140s at home with associated significant anxiety. She otherwise notes that she has felt well and denies chest pain, denies fever or chills or other sxs. She does chronically have significant anxiety and notes that she has been tearful and anxious in the setting of these recent sxs. She follows with Dr. Duffy of cardiology and notes that she saw him in the last week. He is aware she has had these sxs for the last several days. She denies non compliance with her medications, she denies shortness of breath or leg swelling. History Information - Allergies/Home Medication List Allergies/Adverse Reactions: meperidine HCl [From Demerol] Allergy (Verified 10/14/16 12:57) Home Medications: Levothyroxine [Synthroid 75 mcg (*)] 75 mcg PO DAILY06 12/24/12 [Last Taken ] clonazePAM [klonoPIN (*)] 1 mg PO DAILY PRN 12/24/12 [Last Taken 11/13/16] Cholecalciferol (Vitamin D3) [Vitamin D3] 2,000 unit PO DAILY 08/31/14 [Last Taken 11/13/16] busPIRone [Buspar (*)] 5 mg PO BID PRN 05/19/16 [Last Taken 10/13/16] lamOTRIGine [Lamotrigine] 150 mg PO DAILY 10/14/16 [Last Taken 11/13/16] lamOTRIGine [Lamotrigine] 200 mg PO HS 10/14/16 [Last Taken 11/12/16] DILTIAZEM HCL [DILTIAZEM 24HR ER] 180 mg PO DAILY 11/13/16 [Last Taken 11/13/16] Propafenone HCl Sr [Rythmol Sr 225mg (*)] 225 mg PO BID 11/13/16 [Last Taken ] I have personally reviewed and updated: family history, medical history, social history, surgical history - Past Medical History atrial fibrillation, coronary artery disease (mild, non obstructive), CHF (EF of 20-25%, non ischemic; moderate to severe MR), seizures Additional medical history: TBI--s/p craniotomy. WIL--on CPAP. hypothyroid. depression/anxiety - Surgical History Additional surgical history: craniotomy. thyroidectomy. varicose vein surgery - Family History Positive for: cancer (various family members including GM with breast cancer, father with bone cancer, mother with liver cancer) - Social History Smoking Status: Never smoked Alcohol Use: Occasionally Drug Use: None Additional social history: currently lives independently--has a daughter who is involved in her care and accompanies her here today, moving to assisted living this week Review of Systems ROS: 10pt was reviewed & negative except for what was stated in HPI & below Physical Exam Temp Pulse Resp BP Pulse Ox 36.5 C 96 16 96/55 L 100 11/13/16 12:00 11/13/16 14:01 11/13/16 14:01 11/13/16 14:01 11/13/16 14:01 O2 (L/minute) 2 Constitutional: no apparent distress, chronically ill appearing Eyes: PERRL, other (ecchymosis periorbital on left) Ears, Nose, Mouth, Throat: moist mucous membranes, hearing normal, no oral mucosal ulcers Cardiovascular: systolic murmur, irregularly irregular, pulses symmetric bilaterally, No edema Respiratory: no respiratory distress, no rales or rhonchi, clear to auscultation Gastrointestinal: normoactive bowel sounds, soft, non-tender abdomen Genitourinary: no bladder fullness Skin: warm, normal color Musculoskeletal: full muscle strength, no muscle tenderness Neurologic: AAOx3, CN II-XII Intact Psychiatric: interacting appropriately, not anxious, not encephalopathic Lab Data & Imaging Review 11/13/16 10:28 11/13/16 10:28 WBC 6.45 10^3/uL (3.80-9.50) 11/13/16 10:28 RBC 4.66 10^6/uL (4.18-5.33) 11/13/16 10:28 Hgb 13.6 g/dL (12.6-16.3) 11/13/16 10:28 Hct 40.8 % (38.0-47.0) 11/13/16 10:28 MCV 87.6 fL (81.5-99.8) 11/13/16 10:28 MCH 29.2 pg (27.9-34.1) 11/13/16 10:28 MCHC 33.3 g/dL (32.4-36.7) 11/13/16 10:28 RDW 15.4 % (11.5-15.2) H 11/13/16 10:28 Plt Count 283 10^3/uL (150-400) 11/13/16 10:28 MPV 10.2 fL (8.7-11.7) 11/13/16 10:28 Neut % (Auto) 67.3 % (39.3-74.2) 11/13/16 10:28 Lymph % (Auto) 20.8 % (15.0-45.0) 11/13/16 10:28 Power % (Auto) 8.2 % (4.5-13.0) 11/13/16 10:28 Eos % (Auto) 2.5 % (0.6-7.6) 11/13/16 10:28 Baso % (Auto) 0.9 % (0.3-1.7) 11/13/16 10:28 Nucleat RBC Rel Count 0.0 % (0.0-0.2) 11/13/16 10:28 Absolute Neuts (auto) 4.34 10^3/uL (1.70-6.50) 11/13/16 10:28 Absolute Lymphs (auto) 1.34 10^3/uL (1.00-3.00) 11/13/16 10:28 Absolute Monos (auto) 0.53 10^3/uL (0.30-0.80) 11/13/16 10:28 Absolute Eos (auto) 0.16 10^3/uL (0.03-0.40) 11/13/16 10:28 Absolute Basos (auto) 0.06 10^3/uL (0.02-0.10) 11/13/16 10:28 Absolute Nucleated RBC 0.00 10^3/uL (0-0.01) 11/13/16 10:28 Immature Gran % 0.3 % (0.0-1.1) 11/13/16 10:28 Immature Gran # 0.02 10^3/uL (0.00-0.10) 11/13/16 10:28 Sodium 136 mEq/L (134-144) 11/13/16 10:28 Potassium 4.5 mEq/L (3.5-5.2) 11/13/16 10:28 Chloride 101 mEq/L (97-110) 11/13/16 10:28 Carbon Dioxide 24 mEq/l (22-31) 11/13/16 10:28 Anion Gap 11 mEq/L (8-16) 11/13/16 10:28 BUN 9 mg/dL (7-23) 11/13/16 10:28 Creatinine 0.7 mg/dL (0.6-1.0) 11/13/16 10:28 Estimated GFR > 60 11/13/16 10:28 Glucose 76 mg/dL (70-100) 11/13/16 10:28 Calcium 10.3 mg/dL (8.5-10.4) 11/13/16 10:28 Troponin I < 0.012 ng/mL (0-0.034) 11/13/16 10:28 NT-Pro-B Natriuret Pep 899 pg/mL (0-125) H 11/13/16 10:28 Visualized and Interpreted Chest x-ray results: Yes Chest X-Ray results: no infiltrate, other (s/s of CHF improved from prior) Visualized and Interpreted EKG results: Yes EKG Interpretation: Positive for: right bundle branch block EKG additional interpertation: a flutter, a rate in 270s Assessment & Plan Assessment: 76 yo F with PMH of atrial flutter as well as chronic systolic heart failure, TBI and sz d/o admitted with a flutter # a flutter w/rvr: relatively asymptomatic, unclear trigger as patient denies med non compliance, no complaints that would indicate new infection etc. Started on diltiazem drip and rate now improved to 90s. Will continue dilt gtt for now, is already on AC with eliquis which will be continued. As an OP she is on dilt/rhythmol/cardizem which will also be continued for now. Cardiology consulted. # chronic systolic heart failure: with EF of 20-25% at most recent check, does not appear volume overloaded currently, continue op meds. Does have associated VHD with last echo in Oct. Will defer f/u echo unless cardiology feels it is indicated # TBI: s/p crani and with residual cognitive deficits and mood lability, pt/ot/ cm involved, patient already with plans to tx to assisted living in am # sz d/o: continue lamotrigine # hypothyroid: continue LT4 # wil: on cpap chronically, will continue # dispo: observation status, will hopefully be able to dc in am so long as rate controlled and no new issues develop Patient new to my care. old records reviewed and summarized as above. Care plan reviewed with ED doc including plans for dilt gtt. Further hx obtained from patients daughter present at bedside.
[2016-11-13] MEDS ORDERED: DILTIAZEM 125 MG in D5W 125 ML IV SCH (14:30)
--- NOTE | 2016-11-13 14:59 | PDCARPN ---
Cardiology Progress Note Assessment/Plan: The patient is a 76-year-old female known to me from recent encounters in the both the inpatient and outpatient settings. She was admitted October 14 with a new diagnosis of systolic CHF related to a nonischemic cardiomyopathy which was felt to be secondary to asymptomatic persistent atrial fibrillation with rapid ventricular response of unknown duration. A cardiac catheterization performed during her first hospital stay demonstrated no significant CAD. On October 17 she underwent a successful cardioversion and was discharged on Eliquis, diltiazem, and diuretic therapy. When she returned for office followup on October 29, she was back in atrial fibrillation with a rapid ventricular response. Propafenone 225 milligrams twice daily was added to her regimen and she underwent a repeat cardioversion on October 31. She contacted my office on November 04 to report that she had significantly elevated heart rate readings of approximately 130 bpm. She was sent to the office, and had an ECG which demonstrated atrial flutter with a rapid ventricular response. At that point I increased her diltiazem CD from 120 mg daily to 180 mg daily to provide better rate control. A small up titration was made because her low blood pressure limited a more substantial increase. I felt that her second cardioversion probably failed because she had received only 2 or possibly 3 doses of propafenone prior to the procedure. The plan wa then to allow her propafenone to reach a steady state and plan for a repeat revision in the near future. Today she presented to the emergency room stating that she has continuing problems with significantly elevated heart rate. She has not had issues with increasing shortness of breath or signs of fluid retention. In the emergency room today her initial heart rate was 134 bpm. She is now on intravenous diltiazem demonstrating atrial flutter with variable AV block and heart rate in the 70s to 80s. She is comfortable and does not exhibit signs of volume overload. She will be placed in observation on PCU. I will plan to perform a repeat cardioversion tomorrow. If her atrial flutter or fibrillation recurs after her next cardioversion, the plan will be to discontinue her propafenone and replace it with amiodarone. 11/13/16 14:54 Subjective: No significant CV symptoms. Objective: Vital Signs (8 Hrs) Pulse Resp BP Pulse Ox 11/13/16 14:01 96 16 96/55 L 100 Intake/Output (24 Hrs) 11/12/16 11/13/1611/14/17 05:59 05:59 05:59 Other: Weight 51.398 kg Result Diagrams: 11/13/16 10:28 11/13/16 10:28 - Physical Exam Constitutional: no apparent distress Eyes: anicteric sclera Ears, Nose, Mouth, Throat: moist mucous membranes Cardiovascular: no murmurs, irregularly irregular Respiratory: clear to auscultate bilat, no crackles, no wheezes Gastrointestinal: normoactive bowel sounds, no tenderness, no masses Neurologic: AAOx3 Psychiatric: cooperative ICD10 Worksheet Patient Problems: Problems Problem Status Onset Atrial flutter Acute Chest pain Acute Dizziness Acute Atrial flutter with rapid ventricular response Acute Breakthrough seizure Acute CAD (coronary artery disease) Acute Confusion after a seizure Acute Congestive heart failure Acute Dysarthria Acute Dyspnea Acute Facial contusion Acute Noncompliance Acute Seizure Acute
[2016-11-13 16:18] LABS: COLOR PALE YELLOW; LEUKOCYTE ESTERASE,URINE NEGATIVE (NEGATIVE); NITRITE,URINE NEGATIVE (NEGATIVE)
[2016-11-13] MEDS: CARVEDILOL 6.25 MG TAB PO SCH (17:59)
[2016-11-13] MEDS: PROPAFENONE HCL SR 225 MG CAP PO SCH (20:12)
[2016-11-13] MEDS: APIXABAN 5 MG TAB PO SCH (20:13)
[2016-11-13] MEDS: lamoTRIgine 100 MG TAB PO SCH (20:13)
[2016-11-14 05:10] LABS: % IMMATURE GRANULYOCYTES 0.2 % (0.0-1.1); ABSOLUTE IMMATURE GRANULOCYTES 0.01 10^3/uL (0.00-0.10); ADD DIFF? NO; ADD MORPH? NO; ADD SCAN? NO; ATYPICAL LYMPHOCYTE FLAG 20 (0-99); FRAGMENT RBC FLAG 0 (0-99); HEMATOCRIT 36.2 % (38.0-47.0); HEMOGLOBIN 12.1 g/dL (12.6-16.3); LEFT SHIFT FLG 0 (0-99); LIPEMIA HEMOLYSIS FLAG 80 (0-99); MEAN CELL HEMOGLOBIN 29.7 pg (27.9-34.1); MEAN CELL HEMOGLOBIN CONCENTR. 33.4 g/dL (32.4-36.7); MEAN CELL VOLUME 88.9 fL (81.5-99.8); MEAN PLATELET VOLUME 10.7 fL (8.7-11.7); PLATELET CLUMPS FLAG 0 (0-99); PLATELET COUNT 250 10^3/uL (150-400); RED BLOOD CELL COUNT 4.07 10^6/uL (4.18-5.33); RED CELL DISTRIBUTION WIDTH 15.3 % (11.5-15.2)
[2016-11-14 05:15] LABS: ANION GAP 10 mEq/L (8-16); CALCIUM 9.8 mg/dL (8.5-10.4); CARBON DIOXIDE 26 mEq/l (22-31); CHLORIDE 103 mEq/L (97-110); CREATININE 0.6 mg/dL (0.6-1.0); GLOMERULAR FILTRATION RATE > 60; GLUCOSE 107 mg/dL (70-100); POTASSIUM 4.2 mEq/L (3.5-5.2); SODIUM 139 mEq/L (134-144)
[2016-11-14] MEDS: LEVOTHYROXINE 75 MCG TAB PO SCH (06:15)
--- NOTE | 2016-11-14 08:55 | CPEKG ---
Heart Rate: 74 RR Interval: 811 QRSD Interval: 128 QT Interval: 416 QTC Interval: 462 QRS [place]: 120 T Wave [place]: 107 EKG Severity - ABNORMAL ECG - EKG Impression: ATRIAL FLUTTER, A-RATE 272 EKG Impression: VENTRICULAR TRIGEMINY EKG Impression: NONSPECIFIC INTRAVENTRICULAR CONDUCTION DELAY Electronically Signed By: Jenna Thornton 14-Nov-2016 15:34:55
[2016-11-14] MEDS ORDERED: NON-FORMULARY NEW DRUG (Cholecalciferol (Vitamin D3) [Vitamin D3] 2,000 UNIT) PO SCH (09:00)
[2016-11-14] MEDS ORDERED: NON-FORMULARY NEW DRUG (Diltiazem Hcl [Diltiazem 24hr Er] 180 MG) PO SCH (09:00)
[2016-11-14] MEDS: DILTIAZEM CD 180 MG CAP PO SCH (09:15)
[2016-11-14] MEDS: FUROSEMIDE 20 MG TAB PO SCH (09:28)
[2016-11-14] MEDS: LISINOPRIL 5 MG TAB PO SCH (09:28)
[2016-11-14] MEDS: lamoTRIgine 100 MG TAB PO SCH ×2 (09:29→21:14)
[2016-11-14] MEDS: ATORVASTATIN CALCIUM 40 MG TAB PO SCH (09:32)
[2016-11-14] MEDS: CHOLECALCIFEROL VIT D3 2,000 UNITS TAB/CAP PO SCH (09:33)
[2016-11-14] MEDS: APIXABAN 5 MG TAB PO SCH ×2 (09:33→21:14)
[2016-11-14] MEDS: CARVEDILOL 6.25 MG TAB PO SCH ×2 (09:33→18:09)
[2016-11-14] MEDS: PROPAFENONE HCL SR 225 MG CAP PO SCH ×2 (09:33→21:14)
[2016-11-14] MEDS: ASPIRIN EC 81 MG TAB PO SCH (09:33)
--- NOTE | 2016-11-14 12:57 | HOSPPROG ---
Hospitalist Progress Note Assessment/Plan: 76 yo F with PMH of TBI, sz d/o and new dx of a flutter/fib as well as NICM presenting with aflutter w/rvr # a flutter w/rvr: s/p recent unsuccessful CV, has been on dilt/rhythmol and eliquis. Presents, asymptomatic, but with rates in 140s. Started on dilt gtt with some improvement but on repeat ecg this am noted to still be in a flutter with A rates in 270s and variable conduction. Cards plans for CV later today. # chronic systolic heart failure: related to above, EF most recently 20-25%, does not appear volume overloaded # TBI: with residual cognitive issues and emotional lability, is having some difficulty emotionally dealing with her hospitalization and moving to assisted living # sz d/o: continue lamotrigine # madhavi: cpap # dispo: observation status, may be able to dc after CV today Care plan reviewed with cardiology including plans for CV today Subjective: no significant overnight events, patient feeling anxious about moving to assisted living and aggravated that she hasn't been able to eat yet Objective: Vital Signs Temp Pulse Resp BP Pulse Ox 36.4 C 100 16 89/52 L 96 11/14/16 11:39 11/14/16 11:39 11/14/16 11:39 11/14/16 11:39 11/14/16 11:39 Laboratory Results 11/14/16 03:28 11/14/16 03:28 11/13/16 11/14/16 11/15/16 05:59 05:59 05:59 Intake Total 40 Balance 40 awake alert nad anicteric op clear rrr mildly tachy cta b soft nt nd no cce warm dry well perfused oriented anxiou ICD10 Worksheet Patient Problems: Problems Problem Status Onset Seizure Acute Breakthrough seizure Acute Noncompliance Acute Dysarthria Acute Confusion after a seizure Acute Facial contusion Acute Dyspnea Acute Congestive heart failure Acute CAD (coronary artery disease) Acute Atrial flutter with rapid ventricular response Acute Atrial flutter Acute Dizziness Acute Chest pain Acute
[2016-11-14] MEDS ORDERED: PROPOFOL 200 MG/20 ML VIAL ONE (15:00)
--- NOTE | 2016-11-14 15:19 | CPEKG ---
Heart Rate: 78 RR Interval: 769 P-R Interval: 184 QRSD Interval: 90 QT Interval: 384 QTC Interval: 438 P [place]: 84 QRS [place]: 111 T Wave [place]: 77 EKG Severity - ABNORMAL ECG - EKG Impression: SINUS RHYTHM EKG Impression: PROBABLE LEFT ATRIAL ABNORMALITY EKG Impression: LEFT POSTERIOR FASCICULAR BLOCK EKG Impression: LOW VOLTAGE IN FRONTAL LEADS EKG Impression: BORDERLINE R WAVE PROGRESSION, ANTERIOR LEADS EKG Impression: BORDERLINE T ABNORMALITIES, ANT-LAT LEADS EKG Impression: SINUS RHYTHM HAS REPLACED FLUTTER Electronically Signed By: Oliver Hollingsworth 14-Nov-2016 16:32:29
--- NOTE | 2016-11-14 15:21 | PDTEE1 ---
BETHANY Cardioversion Procedure Procedure: Electrical Cardioversion Indications: Other (Atrial flutter) Consent: Signed and in Chart Anticoagulation: La Procedural Details: Pads were placed in anterior-posterior position. No BETHANY performed given that recent BETHANY was negative for SUKUMAR thrombus and that patient has been on continued systemic anticoagulation. Synchronized cardioversion attempt #1: 200J Results: Normal sinus rhythm Conclusions: Successful Cardioversion Patient Problems: Problems Problem Status Onset Atrial flutter Acute Chest pain Acute Dizziness Acute Atrial flutter with rapid ventricular response Acute Breakthrough seizure Acute CAD (coronary artery disease) Acute Confusion after a seizure Acute Congestive heart failure Acute Dysarthria Acute Dyspnea Acute Facial contusion Acute Noncompliance Acute Seizure Acute
--- NOTE | 2016-11-14 15:28 | PDCARPN ---
Cardiology Progress Note Chief Complaint: No complaints. Assessment/Plan: Nonischemic Cardiomyopathy/Chronic Systolic CHF: LVEF 20-25% by echo during her last hospital admission. Likely tachycardia mediated secondary to persistent, asymptomatic atrial fibrillation with RVR of unknown duration. Appears volume compensated. BNP only mildly elevated at 809. - Continue current medical management. Atrial Fibrillation/Flutter: At the time of her initial presentation she was in persistent atrial fibrillation. Underwent a successful cardioversion prior to discharge from her first hospital stay. Returned to the office for followup and was found to be in persistent atrial flutter with RVR. Was started on Rythmol underwent a successful outpatient cardioversion. However, she returned to the office a few days later with recurrent atrial flutter/RVR. I suspect she did not maintain sinus rhythm after her second cardioversion because she had not been on Rythmol long enough to reach a therapeutic level. - Just underwent successful cardioversion today. - If she does not maintain sinus rhythm, will discontinue Rythmol and initiate amiodarone after a wash-out period. Disposition: Stable for discharge from my standpoint. - Has a followup appointment with me on November 21 at 9:15 AM in the [place] office of [facility]. 11/14/16 15:28 Objective: Vital Signs (8 Hrs) Temp Pulse Resp BP Pulse Ox 11/14/16 13:04 77 H 102/59 L 16 L 11/14/16 12:56 80 90/55 L 11/14/16 12:45 100 102/62 11/14/16 12:00 102 H 80/42 L 11/14/16 11:39 36.4 C 100 16 89/52 L 96 11/14/16 10:30 110 H 96 Intake/Output (24 Hrs) 11/13/16 11/14/16 11/15/16 05:59 05:59 05:59 Intake Total 40 Balance 40 Intake: IV Infused (ml) 40 Diltiazem 125 mg In D5w 40 125 ml @ Per Protocol IV CONT NENO Rx#:[id number] Other: Weight 51.398 kg Number of Voids Toilet 2 Result Diagrams: 11/14/16 03:28 11/14/16 03:28 Cardiac Labs: Cardiac Lab Results (72 Hrs) 11/13/16 11/13/16 21:45 16:10 Troponin I < 0.012 < 0.012 - Physical Exam Constitutional: no apparent distress Eyes: anicteric sclera Ears, Nose, Mouth, Throat: moist mucous membranes Cardiovascular: regular rate and rhythm Respiratory: clear to auscultate bilat Gastrointestinal: normoactive bowel sounds, no tenderness, no masses Skin: no rashes, no edema Neurologic: AAOx3 Psychiatric: not anxious ICD10 Worksheet Patient Problems: Problems Problem Status Onset Atrial flutter Acute Chest pain Acute Dizziness Acute Atrial flutter with rapid ventricular response Acute Breakthrough seizure Acute CAD (coronary artery disease) Acute Confusion after a seizure Acute Congestive heart failure Acute Dysarthria Acute Dyspnea Acute Facial contusion Acute Noncompliance Acute Seizure Acute
[2016-11-14] MEDS ORDERED: BISACODYL 10 MG SUPP PR ONE (21:22)
[2016-11-15] MEDS: LEVOTHYROXINE 75 MCG TAB PO SCH (06:19)
[2016-11-15 08:04] VITALS: BP 111/63; PULSE 96; RESP 19; TEMP 97.9; O2SAT 93
--- NOTE | 2016-11-15 08:58 | PDCARPN ---
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 She had a previous BETHANY CV just after beginning Rythmol which was initially successful. She went back into atrial flutter with RVR and therefore was readmitted and is s /p CV on 11/14 which was successful. She is maintaining NSR. Her initial CV was likely unsuccessful b/c she had not been on Rythmol long enough. She is on Eliquis for CVA prophylaxis. Ok to D/C from a cardiac standpoint. She is scheduled to follow up in our [facility] office on 11/21. Continue Rythmol, Cardizem, and Eliquis. Will sign-off. 11/15/16 08:54 Subjective: No complaints. She denies any palpitations, CP, SOB, or lower extremity edema. Objective: Vital Signs (8 Hrs) Temp Pulse Resp BP Pulse Ox 11/15/16 08:01 36.6 C 96 19 111/63 93 11/15/16 05:05 36.3 C 94 18 97/62 L 92 Intake/Output (24 Hrs) 11/14/16 11/15/16 11/16/16 05:59 05:59 05:59 Intake Total 40 575 Output Total 550 Balance 40 25 Intake: Oral (ml) 575 IV Infused (ml) 40 Diltiazem 125 mg In D5w 40 125 ml @ Per Protocol IV CONT NENO Rx#:[id number] Output: Urine (ml) 550 Toilet 550 Other: Weight 51.398 kg Number of Voids Toilet 2 2 Result Diagrams: 11/14/16 03:28 11/14/16 03:28 Cardiac Labs: Cardiac Lab Results (72 Hrs) 11/13/16 11/13/16 21:45 16:10 Troponin I < 0.012 < 0.012 Telemetry: NSR - Physical Exam Constitutional: WDWN Cardiovascular: regular rate and rhythm, no murmurs, no rubs, no gallops Respiratory: clear to auscultate bilat, no crackles Skin: no edema ICD10 Worksheet Patient Problems: Problems Problem Status Onset Atrial flutter Acute Chest pain Acute Dizziness Acute Atrial flutter with rapid ventricular response Acute Breakthrough seizure Acute CAD (coronary artery disease) Acute Confusion after a seizure Acute Congestive heart failure Acute Dysarthria Acute Dyspnea Acute Facial contusion Acute Noncompliance Acute Seizure Acute
[2016-11-15] MEDS: ATORVASTATIN CALCIUM 40 MG TAB PO SCH (09:14)
[2016-11-15] MEDS: LISINOPRIL 5 MG TAB PO SCH (09:14)
[2016-11-15] MEDS: lamoTRIgine 100 MG TAB PO SCH (09:15)
[2016-11-15] MEDS: PROPAFENONE HCL SR 225 MG CAP PO SCH (09:16)
[2016-11-15] MEDS: DILTIAZEM CD 180 MG CAP PO SCH (09:16)
[2016-11-15] MEDS: FUROSEMIDE 20 MG TAB PO SCH (09:17)
[2016-11-15] MEDS: CHOLECALCIFEROL VIT D3 2,000 UNITS TAB/CAP PO SCH (09:17)
[2016-11-15] MEDS: ASPIRIN EC 81 MG TAB PO SCH (09:17)
[2016-11-15] MEDS: APIXABAN 5 MG TAB PO SCH (09:17)
--- NOTE | 2016-11-15 09:25 | PDIAF ---
- Diagnosis Code Status: Full Code - Medication Management Discharge Medications: Medications to Continue on Transfer Levothyroxine [Synthroid 75 mcg (*)] 75 mcg PO DAILY06 12/24/12 [Last Taken ] clonazePAM [klonoPIN (*)] 1 mg PO DAILY PRN 12/24/12 [Last Taken 11/13/16] Cholecalciferol (Vitamin D3) [Vitamin D3] 2,000 unit PO DAILY 08/31/14 [Last Taken 11/13/16] busPIRone [Buspar (*)] 5 mg PO BID PRN 05/19/16 [Last Taken 10/13/16] lamOTRIGine [Lamotrigine] 150 mg PO DAILY 10/14/16 [Last Taken 11/13/16] lamOTRIGine [Lamotrigine] 200 mg PO HS 10/14/16 [Last Taken 11/12/16] Apixaban [Eliquis] 5 mg PO BID #60 tab 10/18/16 [Last Taken 11/13/16] Aspirin EC [Aspirin EC 81 mg (*)] 81 mg PO DAILY #30 tab 10/18/16 [Last Taken ] Atorvastatin Calcium [Lipitor 40 mg (*)] 40 mg PO DAILY #30 tab 10/18/16 [Last Taken 11/13/16] Furosemide [Lasix 20 MG (*)] 20 mg PO DAILY #30 tab 10/18/16 [Last Taken ] Lisinopril [Zestril 5 mg (*)] 5 mg PO DAILY #30 tab 10/18/16 [Last Taken ] DILTIAZEM HCL [DILTIAZEM 24HR ER] 180 mg PO DAILY 11/13/16 [Last Taken 11/13/16] Propafenone HCl Sr [Rythmol Sr 225mg (*)] 225 mg PO BID 11/13/16 [Last Taken ] Acetaminophen [Tylenol 325mg (*)] 650 mg PO Q4HRS PRN #0 tab 11/15/16 [Last Taken Unknown] Discharge Medications: Refer to the Discharge Home Medication list for PRN reason. - Orders Services needed: Home Care, Registered Nurse, Certified Process Architect, Physical Therapy, Occupational Therapy Home Care Face to Face: I certify that this patient was under my care and that I had the required [id number] encounter meeting the encounter requirements on the discharge day. My findings support the fact that the patient is homebound as defined in CMS Chapter 7 Medicare Benefits Manual 30.1.1, The condition of the patient is such that there exists a normal inability to leave home and consequently, leaving home would require a considerable and taxing effort. Diet Recommendation: cardiac -low fat low salt Weigh Patient: weekly - Follow Up Care Current Providers and Referrals: May Wheat MD [Primary Care Provider] - As per Instructions Candido Duffy MD [Medical Doctor] - 11/25/16 9:15 am (Your appointment with Dr. Duffy is in the [place] office of [facility].)
--- NOTE | 2016-11-15 13:09 | PDDCSUM ---
Discharge Summary Discharge Summary: Dates of service: 11/13-11/15/16 Discharge dx: # a flutter/paroxysmal # chronic systolic heart failure # TBI # seizure d/o # WIL # dementia/cognitive dysfunction Consultations: cardiology Procedures performed: TTE/CV Hospital course by problem: # a flutter w/rvr: repeat CV performed yesterday and has been in SR since then, continued on dilt/rhythmol and eliquis. F/u with cardiology in the next 1-2 weeks. # chronic systolic heart failure: related to above, EF most recently 20-25%, does not appear volume overloaded, continue op f/u # TBI: with residual cognitive issues and emotional lability, moving to assisted living # sz d/o: continue lamotrigine # wil: cpap # dementia/cognitive dysfunction: related to TBI, as above, moving to assisted living > 35 minutes spent in dc of this patient, more than half in face to face counseling of patient and her daughter regarding f/u care plan
== END 2016-11-15 11:14 | disposition home health service (06) ==
LOC: F2W 14:25
PROVIDERS: ADMIT Internal Medicine; ATTEND Internal Medicine
PROC: 5A2204Z Restoration of Cardiac Rhythm, Single (ICD-10-PCS; principal; 2016-11-13)
DX: I48.92 Unspecified atrial flutter (principal); R00.0 Tachycardia, unspecified; I50.22 Chronic systolic (congestive) heart failure; Z87.820 Personal history of traumatic brain injury; R41.89 Other symptoms and signs involving cognitive functions and awareness; I42.8 Other cardiomyopathies; I44.5 Left posterior fascicular block; I45.19 Other right bundle-branch block; R56.1 Post traumatic seizures; G47.33 Obstructive sleep apnea (adult) (pediatric); E03.9 Hypothyroidism, unspecified; I25.10 Atherosclerotic heart disease of native coronary artery without angina pectoris; F32.9 Major depressive disorder, single episode, unspecified; Z79.01 Long term (current) use of anticoagulants; Z79.82 Long term (current) use of aspirin
CPT/HCPCS: 71020; 92960; 93005; 96365; 96366; 96375; 97161; 97165; 99285; G0378; G8978; G8979; G8980; G8987; G8988; G8989; J2704; J2060

== ENCOUNTER → 2016-11-21 | Outpatient (CLI) | payer OTHER | LOC: BHLMT 09:15 | PROVIDERS: ATTEND Internal Medicine Interventional Cardiology | DX: I48.0 Paroxysmal atrial fibrillation (principal); I48.92 Unspecified atrial flutter; I50.22 Chronic systolic (congestive) heart failure; I42.8 Other cardiomyopathies | CPT/HCPCS: 93005-PO ==

== ENCOUNTER 2017-01-28 16:13 | Emergency (ER) | payer OTHER ==
--- NOTE | 2017-01-28 16:43 | EDPHY ---
H & P Stated Complaint: syncope Time Seen by Provider: 01/28/17 16:41 HPI/ROS: CHIEF COMPLAINT: [ ] HISTORY OF PRESENT ILLNESS: [Need 4: Location, Duration, Severity, Quality, Context, Timing Modifying Factors, Associated S&S] REVIEW OF SYSTEMS: A comprehensive 10 point review of systems is otherwise negative aside from elements mentioned in the history of present illness. Source: Patient - Personal History Current Tetanus Diphtheria and Acellular Pertussis (TDAP): Yes Tetanus Vaccine Date: less than 10 years - Medical/Surgical History Hx Asthma: No Hx Chronic Respiratory Disease: Yes Hx Diabetes: No Hx Cardiac Disease: Yes Hx Renal Disease: No Hx Cirrhosis: No Hx Alcoholism: No Hx HIV/AIDS: No Hx Splenectomy or Spleen Trauma: No Other PMH: SZ s/p TBI, neuropathy, hypothyroid, AFLUTTER - Social History Smoking Status: Never smoked - Physical Exam Exam: General Appearance: [Alert, no distress] Eyes: [Pupils equal and round no pallor or injection] ENT, Mouth: [Mucous membranes moist] Respiratory: [There are no retractions, lungs are clear to auscultation] Cardiovascular: [Regular rate and rhythm] Gastrointestinal: [Abdomen is soft and nontender, no masses, bowel sounds normal] Neurological: [A&O, normal motor function, normal sensory exam, normal cranial nerves] Skin: [Warm and dry, no rashes] Musculoskeletal: [Neck is supple nontender] Extremities: [symmetrical, full range of motion] Psychiatric: [Patient is oriented X 3, there is no agitation] Constitutional: Initial Vital Signs Temperature (C) 36.9 C 01/28/17 16:32 Heart Rate 69 01/28/17 16:32 Respiratory Rate 16 01/28/17 16:32 Blood Pressure 115/71 01/28/17 16:32 O2 Sat (%) 95 01/28/17 16:32 O2 Delivery Mode Room Air Allergies/Adverse Reactions: meperidine HCl [From Demerol] Allergy (Verified 10/14/16 12:57) Home Medications: Medication Instructions Recorded Levothyroxine [Synthroid 75 mcg 75 mcg PO DAILY06 12/24/12 (*)] clonazePAM [klonoPIN (*)] 1 mg PO DAILY PRN 12/24/12 Cholecalciferol (Vitamin D3) 2,000 unit PO DAILY 08/31/14 [Vitamin D3] busPIRone [Buspar (*)] 5 mg PO BID PRN 05/19/16 lamOTRIGine [Lamotrigine] 150 mg PO DAILY 10/14/16 lamOTRIGine [Lamotrigine] 200 mg PO HS 10/14/16 Apixaban [Eliquis] 5 mg PO BID #60 tab 10/18/16 Aspirin EC [Aspirin EC 81 mg (*)] 81 mg PO DAILY #30 tab 10/18/16 Atorvastatin Calcium [Lipitor 40 40 mg PO DAILY #30 tab 10/18/16 mg (*)] Furosemide [Lasix 20 MG (*)] 20 mg PO DAILY #30 tab 10/18/16 Lisinopril [Zestril 5 mg (*)] 5 mg PO DAILY #30 tab 10/18/16 DILTIAZEM HCL [DILTIAZEM 24HR ER] 180 mg PO DAILY 11/13/16 Propafenone HCl Sr [Rythmol Sr 225 mg PO BID 11/13/16 225mg (*)] Acetaminophen [Tylenol 325mg (*)] 650 mg PO Q4HRS PRN #0 tab 11/15/16 Departure - Departure Referrals: May Wheat MD [Primary Care Provider] - As per Instructions
[2017-01-28] MEDS ORDERED: NS 1,000 ML IV ONE ×2 (16:59→17:53)
--- NOTE | 2017-01-28 17:02 | EDPHY ---
H & P Stated Complaint: syncope Time Seen by Provider: 01/28/17 16:41 HPI/ROS: CHIEF COMPLAINT: Syncope HISTORY OF PRESENT ILLNESS: The patient presents to the ED after an episode of syncope that occurred while hiking today. The patient reports that her symptoms of syncope lasted several seconds. It was witnessed by her daughter. She did not fall or experience of traumatic injury. The patient denies any complaints of acute headache, numbness, weakness or additional infectious symptoms. The patient was diagnosed with atrial fibrillation and congestive heart failure in October of this year. She was started on medications at that point time. The patient believes she is anticoagulated but is uncertain of her exact medications. The patient did have nausea earlier today which has improved. REVIEW OF SYSTEMS: A comprehensive 10 point review of systems is otherwise negative aside from elements mentioned in the history of present illness. Source: Patient Exam Limitations: No limitations - Personal History Current Tetanus Diphtheria and Acellular Pertussis (TDAP): Yes Tetanus Vaccine Date: less than 10 years - Medical/Surgical History Hx Asthma: No Hx Chronic Respiratory Disease: Yes Hx Diabetes: No Hx Cardiac Disease: Yes Hx Renal Disease: No Hx Cirrhosis: No Hx Alcoholism: No Hx HIV/AIDS: No Hx Splenectomy or Spleen Trauma: No Other PMH: SZ s/p TBI, neuropathy, hypothyroid, AFLUTTER - Social History Smoking Status: Never smoked - Physical Exam Exam: General Appearance: Alert, no distress Eyes: Pupils equal and round no pallor or injection ENT, Mouth: Mucous membranes moist Respiratory: There are no retractions, lungs are clear to auscultation Cardiovascular: Regular rate and rhythm Gastrointestinal: Abdomen is soft and nontender, no masses, bowel sounds normal Neurological: A&O, normal motor function, normal sensory exam, normal cranial nerves Skin: Warm and dry, no rashes Musculoskeletal: Neck is supple nontender Extremities: symmetrical, full range of motion Psychiatric: Patient is oriented X 3, there is no agitation Constitutional: Initial Vital Signs O2 Sat (%) 96 01/28/17 16:15 O2 Delivery Mode Room Air O2 (L/minute) 2 Allergies/Adverse Reactions: meperidine HCl [From Demerol] Allergy (Verified 10/14/16 12:57) Home Medications: Medication Instructions Recorded Levothyroxine [Synthroid 75 mcg 75 mcg PO DAILY06 12/24/12 (*)] clonazePAM [klonoPIN (*)] 1 mg PO DAILY PRN 12/24/12 Cholecalciferol (Vitamin D3) 2,000 unit PO DAILY 08/31/14 [Vitamin D3] busPIRone [Buspar (*)] 5 mg PO BID PRN 05/19/16 lamOTRIGine [Lamotrigine] 150 mg PO DAILY 10/14/16 lamOTRIGine [Lamotrigine] 200 mg PO HS 10/14/16 Apixaban [Eliquis] 5 mg PO BID #60 tab 10/18/16 Aspirin EC [Aspirin EC 81 mg (*)] 81 mg PO DAILY #30 tab 10/18/16 Atorvastatin Calcium [Lipitor 40 40 mg PO DAILY #30 tab 10/18/16 mg (*)] Furosemide [Lasix 20 MG (*)] 20 mg PO DAILY #30 tab 10/18/16 Lisinopril [Zestril 5 mg (*)] 5 mg PO DAILY #30 tab 10/18/16 DILTIAZEM HCL [DILTIAZEM 24HR ER] 180 mg PO DAILY 11/13/16 Propafenone HCl Sr [Rythmol Sr 225 mg PO BID 11/13/16 225mg (*)] Acetaminophen [Tylenol 325mg (*)] 650 mg PO Q4HRS PRN #0 tab 11/15/16 Medical Decision Making ED Course/Re-evaluation: I reviewed the patient's past medical records. The patient was placed on a microeconomics professor. She had an IV established. She received a L of normal saline. The patient was noted to be mildly hyponatremic with a sodium of 130. The patient did received 2 L of normal saline. The remainder of the patient's physical examination laboratory studies are unremarkable. The patient did receive IV fluid rehydration in the ED. She was re-evaluated by myself at 7:00 p.m.. She is now ambulatory with stable vital signs. The patient has no evidence of acute traumatic injury. Discussion: The patient presents to the ED after an episode of syncope in the setting dehydration. The patient has no evidence of an arrhythmia. The patient has no evidence of stroke. After rehydration she is feeling better. She is comfortable being discharged home. Differential Diagnosis: Differential diagnosis considered includes arrhythmia, anemia, metabolic abnormality, dehydration, urinary tract infection - Data Points Laboratory Results: Laboratory Results 01/28/17 17:12 01/28/17 17:12 01/28/17 01/28/17 01/28/17 17:12 17:12 17:12 WBC 6.51 10^3/uL 10^3/uL (3.80-9.50) RBC 3.66 10^6/uL L 10^6/uL (4.18-5.33) Hgb 11.6 g/dL L g/dL (12.6-16.3) Hct 34.1 % L % (38.0-47.0) MCV 93.2 fL fL (81.5-99.8) MCH 31.7 pg pg (27.9-34.1) MCHC 34.0 g/dL g/dL (32.4-36.7) RDW 13.6 % % (11.5-15.2) Plt Count 236 10^3/uL 10^3/uL (150-400) MPV 10.5 fL fL (8.7-11.7) Neut % (Auto) 70.3 % % (39.3-74.2) Lymph % (Auto) 19.8 % % (15.0-45.0) [place] % (Auto) 7.5 % % (4.5-13.0) Eos % (Auto) 1.2 % % (0.6-7.6) Baso % (Auto) 0.9 % % (0.3-1.7) Nucleat RBC Rel Count 0.0 % % (0.0-0.2) Absolute Neuts (auto) 4.57 10^3/uL 10^3/uL (1.70-6.50) Absolute Lymphs (auto) 1.29 10^3/uL 10^3/uL (1.00-3.00) Absolute Monos (auto) 0.49 10^3/uL 10^3/uL (0.30-0.80) Absolute Eos (auto) 0.08 10^3/uL 10^3/uL (0.03-0.40) Absolute Basos (auto) 0.06 10^3/uL 10^3/uL (0.02-0.10) Absolute Nucleated RBC 0.00 10^3/uL 10^3/uL (0-0.01) Immature Gran % 0.3 % % (0.0-1.1) Immature Gran # 0.02 10^3/uL 10^3/uL (0.00-0.10) PT 15.1 SEC H SEC (12.0-15.0) INR 1.19 H (0.83-1.16) Sodium 130 mEq/L L mEq/L (134-144) Potassium 4.0 mEq/L mEq/L (3.5-5.2) Chloride 99 mEq/L mEq/L (97-110) Carbon Dioxide 24 mEq/l mEq/l (22-31) Anion Gap 7 mEq/L L mEq/L (8-16) BUN 14 mg/dL mg/dL (7-23) Creatinine 0.6 mg/dL mg/dL (0.6-1.0) Estimated GFR > 60 Glucose 93 mg/dL mg/dL (70-100) Calcium 9.6 mg/dL mg/dL (8.5-10.4) Troponin I < 0.012 ng/mL ng/mL (0-0.034) Medications Given: Discontinued Medications Sodium Chloride (Ns) 1,000 mls @ 0 mls/hr IV ONCE ONE PRN Reason: Wide Open Stop: 01/28/17 17:00 Last Admin: 01/28/17 17:17 Dose: 1,000 mls Sodium Chloride (Ns) 1,000 mls @ 0 mls/hr IV ONCE ONE PRN Reason: Wide Open Stop: 01/28/17 17:54 Last Admin: 01/28/17 18:11 Dose: 1,000 mls Departure - Departure Disposition: Home, Routine, Self-Care Clinical Impression: Syncope, Dehydration, Hyponatremia Condition: Good Instructions: Dehydration (ED) Additional Instructions: 1. Please return to the ED for any worsening symptoms, pain, headache, numbness , chest pain or difficulty breathing. 2. I do believe you likely experienced mild dehydration today which caused your loss of consciousness. Please return to the ED immediately for any recurrent symptoms. 3. Please follow up with your primary care provider as scheduled. Referrals: May Wheat MD [Primary Care Provider] - As per Instructions
--- NOTE | 2017-01-28 17:17 | CPEKG ---
Heart Rate: 64 RR Interval: 938 P-R Interval: 160 QRSD Interval: 84 QT Interval: 416 QTC Interval: 430 P [place]: 2 QRS [place]: 95 T Wave [place]: 85 EKG Severity - ABNORMAL ECG - EKG Impression: SINUS RHYTHM EKG Impression: ATRIAL PREMATURE COMPLEX EKG Impression: RIGHT AXIS DEVIATION EKG Impression: BORDERLINE R WAVE PROGRESSION, ANTERIOR LEADS EKG Impression: NONSPECIFIC T ABNORMALITIES, ANT-LAT LEADS Electronically Signed By: Robert Fan 28-Jan-2017 20:16:29
[2017-01-28 17:19] LABS: % IMMATURE GRANULYOCYTES 0.3 % (0.0-1.1); ABSOLUTE IMMATURE GRANULOCYTES 0.02 10^3/uL (0.00-0.10); ADD DIFF? NO; ADD MORPH? NO; ADD SCAN? NO; ATYPICAL LYMPHOCYTE FLAG 0 (0-99); FRAGMENT RBC FLAG 0 (0-99); HEMATOCRIT 34.1 % (38.0-47.0); HEMOGLOBIN 11.6 g/dL (12.6-16.3); LEFT SHIFT FLG 10 (0-99); LIPEMIA HEMOLYSIS FLAG 90 (0-99); MEAN CELL HEMOGLOBIN 31.7 pg (27.9-34.1); MEAN CELL VOLUME 93.2 fL (81.5-99.8); MEAN PLATELET VOLUME 10.5 fL (8.7-11.7); PLATELET CLUMPS FLAG 0 (0-99); PLATELET COUNT 236 10^3/uL (150-400); RED BLOOD CELL COUNT 3.66 10^6/uL (4.18-5.33); RED CELL DISTRIBUTION WIDTH 13.6 % (11.5-15.2)
[2017-01-28 17:29] LABS: INR 1.19 (0.83-1.16); PROTIME(PATIENT) 15.1 SEC (12.0-15.0)
[2017-01-28 17:36] LABS: ANION GAP 7 mEq/L (8-16); CALCIUM 9.6 mg/dL (8.5-10.4); CARBON DIOXIDE 24 mEq/l (22-31); CHLORIDE 99 mEq/L (97-110); CREATININE 0.6 mg/dL (0.6-1.0); GLOMERULAR FILTRATION RATE > 60; GLUCOSE 93 mg/dL (70-100); SODIUM 130 mEq/L (134-144)
[2017-01-28 17:49] LABS: TROPONIN I < 0.012 ng/mL (0-0.034)
[2017-01-28 18:55] VITALS: O2SAT 98
[2017-01-28 19:27] VITALS: BP 124/69; PULSE 71; RESP 18; TEMP 98.6
== END 2017-01-28 19:28 | disposition home or self-care (01) ==
DX: R55 Syncope and collapse (principal); E87.1 Hypo-osmolality and hyponatremia; Z79.82 Long term (current) use of aspirin

== ENCOUNTER → 2017-02-20 | Outpatient (CLI) | payer OTHER | LOC: BHFA 10:00 | PROVIDERS: ATTEND Internal Medicine Cardiovascular Disease | DX: I42.9 Cardiomyopathy, unspecified (principal); I50.9 Heart failure, unspecified; I48.91 Unspecified atrial fibrillation ==

== ENCOUNTER 2017-03-25 10:50 | Emergency (ER) | payer OTHER ==
--- NOTE | 2017-03-25 11:12 | CPEKG ---
Heart Rate: 67 RR Interval: 896 P-R Interval: 168 QRSD Interval: 94 QT Interval: 400 QTC Interval: 423 P [place]: 20 QRS [place]: 89 T Wave [place]: 78 EKG Severity - ABNORMAL ECG - EKG Impression: SINUS RHYTHM EKG Impression: BORDERLINE RIGHT AXIS DEVIATION EKG Impression: LOW VOLTAGE IN FRONTAL LEADS EKG Impression: BORDERLINE R WAVE PROGRESSION, ANTERIOR LEADS EKG Impression: BORDERLINE T ABNORMALITIES, ANT-LAT LEADS Electronically Signed By: Charles Delacruz 25-Mar-2017 12:10:03
[2017-03-25 11:29] LABS: % IMMATURE GRANULYOCYTES 0.1 % (0.0-1.1); ABSOLUTE IMMATURE GRANULOCYTES 0.01 10^3/uL (0.00-0.10); ADD DIFF? NO; ADD MORPH? NO; ADD SCAN? NO; ATYPICAL LYMPHOCYTE FLAG 0 (0-99); FRAGMENT RBC FLAG 0 (0-99); HEMATOCRIT 37.1 % (38.0-47.0); HEMOGLOBIN 12.9 g/dL (12.6-16.3); LEFT SHIFT FLG 0 (0-99); LIPEMIA HEMOLYSIS FLAG 90 (0-99); MEAN CELL HEMOGLOBIN 31.6 pg (27.9-34.1); MEAN CELL HEMOGLOBIN CONCENTR. 34.8 g/dL (32.4-36.7); MEAN CELL VOLUME 90.9 fL (81.5-99.8); MEAN PLATELET VOLUME 9.9 fL (8.7-11.7); PLATELET CLUMPS FLAG 0 (0-99); PLATELET COUNT 263 10^3/uL (150-400); RED BLOOD CELL COUNT 4.08 10^6/uL (4.18-5.33); RED CELL DISTRIBUTION WIDTH 12.2 % (11.5-15.2)
[2017-03-25 11:35] LABS: ANION GAP 11 mEq/L (8-16); CALCIUM 10.1 mg/dL (8.5-10.4); CARBON DIOXIDE 19 mEq/l (22-31); CHLORIDE 100 mEq/L (97-110); CREATININE 0.6 mg/dL (0.6-1.0); GLOMERULAR FILTRATION RATE > 60; GLUCOSE 92 mg/dL (70-100); MAGNESIUM 1.9 mg/dL (1.6-2.3); POTASSIUM 4.2 mEq/L (3.5-5.2); SODIUM 130 mEq/L (134-144)
--- NOTE | 2017-03-25 11:42 | EDPHY ---
H & P Stated Complaint: palpitations/dizzy/sob hx afib Source: Patient Exam Limitations: No limitations - Personal History Current Tetanus/Diphtheria Vaccine: Yes Tetanus Vaccine Date: less than 10 years - Medical/Surgical History Hx Asthma: No Hx Chronic Respiratory Disease: Yes Hx Diabetes: No Hx Cardiac Disease: Yes Hx Renal Disease: No Hx Cirrhosis: No Hx Alcoholism: No Hx HIV/AIDS: No Hx Splenectomy or Spleen Trauma: No Other PMH: SZ s/p TBI, neuropathy, hypothyroid, AFLUTTER - Social History Smoking Status: Never smoked HPI/ROS: CHIEF COMPLAINT: Dizziness HISTORY OF PRESENT ILLNESS: Patient complains of dizziness, lightheadedness, near-syncope. This started on Thursday after hiking. It has been constant duration. [id number] severity. Has not improved since onset. Worse with movement and standing up. She describes a lightheadedness and near syncope but no actual spinning sensation. No vomiting. No chest pain. No change in her baseline shortness of breath. No swelling of lower extremities. No weight gain over the duration. She does have a history of CHF, coronary artery disease and atrial flutter. She is had no recent travel or surgery. No fall or injuries. No other associated complaints or predictable modifying factors. She was seen by her senior oracle applications developer on , and they discontinued her lisinopril. No other changes to the medication. Her friend is sitting with her bedside. She denies any facial droop, slurred speech, unilateral motor changes. REVIEW OF SYSTEMS: Ten systems reviewed and are negative unless otherwise noted in the HPI PAST MEDICAL HISTORY: As reviewed SOCIAL HISTORY: Nonsmoker. FAMILY HISTORY: Noncontributory EXAMINATION General Appearance: Alert, no distress Head: normocephalic, atraumatic Eyes: Pupils equal and round, no conjunctival pallor or injection ENT, Mouth: Mucous membranes moist. Uvula midline. Airway widely patent Neck: Normal inspection, supple, non-tender Respiratory: Lungs are clear to auscultation. No wheeze, rhonchi or crackles Cardiovascular: Regular rate and rhythm. No murmur. Gastrointestinal: Abdomen is soft and nontender Back: non-tender, no bony abnormalities Neurological: GCS 15. Cranial nerves 2-12 grossly intact. A&O, nonfocal, normal gait. No pronator drift. No dysmetria. NIH stroke scale is 0. Skin: Warm and dry, no rash. No petechiae or purpura. Extremities: Nontender, no pedal edema Psychiatric: Mood and affect normal DIFFERENTIAL DIAGNOSES: Including but not limited to ACS, CHF, dehydration, AFib, a flutter, CAD, thyroid dysfunction, electrolyte disturbance MDM: 11:20 a.m. Palpitations with dizziness over the past few days. No vomiting. No unilateral or stroke-like symptoms appreciated. I will consult attending physician to see the patient conjunction. She is resting comfortably in no acute distress at this time. 12:25 p.m. Patient's laboratory studies are all within normal limits. I have re-evaluated her at this time, she is resting comfortably in no acute distress. She has been evaluated by Dr. Delacruz. She did have a short episode of anxiety reaction that was treated with Klonopin. She is feeling much better from this. We both feel that she is stable for discharge home at this time. She will contact her senior oracle applications developer for further instructions. She and her friend at bedside are comfortable with this plan. She is discharged home stable condition SUPERVISION: Shared visit with Dr. Delacruz ([facility]) Constitutional: Initial Vital Signs Temperature (C) 36.5 C 03/25/17 10:57 Heart Rate 69 03/25/17 10:57 Respiratory Rate 24 H 03/25/17 10:57 Blood Pressure 164/75 H 03/25/17 10:57 O2 Sat (%) 98 03/25/17 10:57 O2 Delivery Mode Room Air Allergies/Adverse Reactions: meperidine HCl [From Demerol] Allergy (Verified 03/25/17 10:54) Home Medications: Medication Instructions Recorded Levothyroxine [Synthroid 75 mcg 75 mcg PO DAILY06 12/24/12 (*)] clonazePAM [klonoPIN (*)] 1 mg PO DAILY PRN 12/24/12 Cholecalciferol (Vitamin D3) 2,000 unit PO DAILY 08/31/14 [Vitamin D3] busPIRone [Buspar (*)] 5 mg PO BID PRN 05/19/16 lamOTRIGine [Lamotrigine] 150 mg PO DAILY 10/14/16 lamOTRIGine [Lamotrigine] 200 mg PO HS 10/14/16 Aspirin EC [Aspirin EC 81 mg (*)] 81 mg PO DAILY #30 tab 10/18/16 Atorvastatin Calcium [Lipitor 40 40 mg PO DAILY #30 tab 10/18/16 mg (*)] DILTIAZEM HCL [DILTIAZEM 24HR ER] 180 mg PO DAILY 11/13/16 Propafenone HCl Sr [Rythmol Sr 225 mg PO BID 11/13/16 225mg (*)] Acetaminophen [Tylenol 325mg (*)] 650 mg PO Q4HRS PRN #0 tab 11/15/16 Xarelto 03/25/17 Medical Decision Making - Diagnostics EKG Interpretation: 12-lead EKG interpreted by me; official reading is in trace master. My interpretation is sinus rhythm rate 67, low frontal voltage, late anterior RS transition. Nonspecific T-wave abnormalities. No significant change since January 28 of this year reviewed in trace master. (Charles Delacruz) Imaging Results: Imaging Impressions Chest X-Ray 03/25/17 11:04 Impression: 1. No acute pulmonary disease. 2. Atherosclerotic thoracic aorta. Other Provider: PHYSICIAN DOCUMENTATION: The patient was evaluated and managed by the Physician Step Down Nurse and myself. I have reviewed the chart and agree with the findings and plan of care as documented. In addition, I examined the patient myself at 1120. History confirmed as "I do not feel like and getting blood flow to my legs." Physical findings as follows: Normal dorsalis pedis pulses, compartment soft, no bony tenderness, normal motor and sensory, toes downgoing. No clonus. At 11:40 the patient became very agitated and yelling and screaming and was given her oral Klonopin by her nurse who is in the room. She says that this happens when she gets overwhelmed after her traumatic brain injury and she was clearly very anxious at this time. I think her dizziness is unlikely to represent stroke or acute neurologic problem or malignant dysrhythmia. Her legs objectively have normal motor and sensory exam and normal vascular. I think claudication or other vascular problem, or Guillain-Kent or spinal cord compromise are all unlikely. I am the secondary supervising physician. (Charles Delacruz) - Data Points Laboratory Results: Laboratory Results 03/25/17 11:11 03/25/17 11:11 03/25/17 03/25/17 03/25/17 11:35 11:11 11:11 WBC RBC Hgb Hct MCV MCH MCHC RDW Plt Count MPV Neut % (Auto) Lymph % (Auto) [place] % (Auto) Eos % (Auto) Baso % (Auto) Nucleat RBC Rel Count Absolute Neuts (auto) Absolute Lymphs (auto) Absolute Monos (auto) Absolute Eos (auto) Absolute Basos (auto) Absolute Nucleated RBC Immature Gran % Immature Gran # PT 14.5 SEC SEC REJ (12.0-15.0) INR 1.14 REJ (0.83-1.16) APTT 32.3 SEC SEC REJ (23.0-38.0) Sodium 130 mEq/L L mEq/L (134-144) Potassium 4.2 mEq/L mEq/L (3.5-5.2) Chloride 100 mEq/L mEq/L (97-110) Carbon Dioxide 19 mEq/l L mEq/l (22-31) Anion Gap 11 mEq/L mEq/L (8-16) BUN 8 mg/dL mg/dL (7-23) Creatinine 0.6 mg/dL mg/dL (0.6-1.0) Estimated GFR > 60 Glucose 92 mg/dL mg/dL (70-100) Calcium 10.1 mg/dL mg/dL (8.5-10.4) Magnesium 1.9 mg/dL mg/dL (1.6-2.3) Troponin I < 0.012 ng/mL ng/mL (0-0.034) NT-Pro-B Natriuret Pep 591 pg/mL H pg/mL (0-450) TSH 1.480 uIU/mL uIU/mL (0.465-4.680) 03/25/17 11:11 WBC 6.68 10^3/uL 10^3/uL (3.80-9.50) RBC 4.08 10^6/uL L 10^6/uL (4.18-5.33) Hgb 12.9 g/dL g/dL (12.6-16.3) Hct 37.1 % L % (38.0-47.0) MCV 90.9 fL fL (81.5-99.8) MCH 31.6 pg pg (27.9-34.1) MCHC 34.8 g/dL g/dL (32.4-36.7) RDW 12.2 % % (11.5-15.2) Plt Count 263 10^3/uL 10^3/uL (150-400) MPV 9.9 fL fL (8.7-11.7) Neut % (Auto) 70.9 % % (39.3-74.2) Lymph % (Auto) 19.6 % % (15.0-45.0) [place] % (Auto) 7.5 % % (4.5-13.0) Eos % (Auto) 1.2 % % (0.6-7.6) Baso % (Auto) 0.7 % % (0.3-1.7) Nucleat RBC Rel Count 0.0 % % (0.0-0.2) Absolute Neuts (auto) 4.73 10^3/uL 10^3/uL (1.70-6.50) Absolute Lymphs (auto) 1.31 10^3/uL 10^3/uL (1.00-3.00) Absolute Monos (auto) 0.50 10^3/uL 10^3/uL (0.30-0.80) Absolute Eos (auto) 0.08 10^3/uL 10^3/uL (0.03-0.40) Absolute Basos (auto) 0.05 10^3/uL 10^3/uL (0.02-0.10) Absolute Nucleated RBC 0.00 10^3/uL 10^3/uL (0-0.01) Immature Gran % 0.1 % % (0.0-1.1) Immature Gran # 0.01 10^3/uL 10^3/uL (0.00-0.10) PT INR APTT Sodium Potassium Chloride Carbon Dioxide Anion Gap BUN Creatinine Estimated GFR Glucose Calcium Magnesium Troponin I NT-Pro-B Natriuret Pep TSH Departure - Departure Disposition: Home, Routine, Self-Care Clinical Impression: Palpitations Condition: Good Instructions: Palpitations (ED) Additional Instructions: 1. Contact primary care physician and senior oracle applications developer for further care 2. Return to the ER for any return of symptoms or any chest pain Referrals: Candido Duffy MD [Medical Doctor] - As per Instructions
[2017-03-25] MEDS ORDERED: LORazepam 2 MG/ML INJ ONE (11:44)
[2017-03-25 11:47] LABS: TROPONIN I < 0.012 ng/mL (0-0.034)
[2017-03-25 11:59] LABS: INR 1.14 (0.83-1.16); PROTIME(PATIENT) 14.5 SEC (12.0-15.0)
[2017-03-25 12:00] LABS: APTT 32.3 SEC (23.0-38.0)
[2017-03-25 12:59] VITALS: BP 143/85; PULSE 74; RESP 17; TEMP 98.4; O2SAT 96
== END 2017-03-25 12:52 | disposition home or self-care (01) ==
DX: R00.2 Palpitations (principal); Z79.01 Long term (current) use of anticoagulants; Z79.82 Long term (current) use of aspirin
CPT/HCPCS: 71010; 93005; 99285; J2060

== ENCOUNTER 2017-04-16 18:55 | Emergency (ER) | payer OTHER ==
--- NOTE | 2017-04-16 18:59 | EDPHY ---
H & P HPI/ROS: HPI CHIEF COMPLAINT: Head injury on Xarelto HISTORY OF PRESENT ILLNESS: This patient very pleasant 77-year-old female she has significant past medical history for traumatic brain injury, atrial flutter on Xarelto, remote history of of school trauma with plates placed, presents emergency room by private vehicle ongoing left-sided headache. She states rather severe over the past 3 days. No nausea. No numbness or tingling no focal weakness. Patient reports that approximately 10 days ago she hit her head on a cabinet. No LOC. She initially had some bruising to her face and around her eye. This is greatly improved. She tells me this was improved however the last 3 days she noticed a recurrence of the left-sided headache. No trouble with her vision. Past Medical History: Atrial flutter on Xarelto coronary artery disease, traumatic brain injury Past Surgical History: Skull trauma requiring plate placement. Social History: Noncontributory Family History: Noncontributory ROS REVIEW OF SYSTEMS: A comprehensive 10 point review of systems is otherwise negative aside from elements mentioned in the history of present illness. Exam Constitutional appears well, triage nursing summary reviewed, vital signs reviewed, awake/alert. Eyes normal conjunctivae and sclera, EOMI, PERRLA. HENT head/neck/face: There is ecchymosis significant around the left side of her periorbital and left face region in multiple various stages of color including yellow, dark purple indicating old ecchymosis, also there is a hematoma present left frontal temporal vertex region, mild tender palpation, also there are plates present on the left side of her skull that he can palpate , normal inspection, atraumatic, moist mucus membranes, no epistaxis, neck supple/ no meningismus, no raccoon eyes. Respiratory clear to auscultation bilaterally, normal breath sounds, no respiratory distress, no wheezing. Cardiovascular rate normal, regular rhythm, no murmur, no edema, distal pulses normal. Gastrointestinal soft, non-tender, no rebound, no guarding, normal bowel sounds, no distension, no pulsatile mass. Genitourinary no CVA tenderness. Musculoskeletal no midline vertebral tenderness, full range of motion, no calf swelling, no tenderness of extremities, no meningismus, good pulses, neurovascularly intact. Skin pink, warm, & dry, no rash, skin atraumatic. Neurologic awake, alert and oriented x 3, AAOx3, moves all 4 extremities equally, motor intact, sensory intact, CN II-XII intact, normal cerebellar, normal vision, normal speech. Psychiatric normal mood/affect. Heme/Lymph/Immune no lymphadenopathy. Differential Diagnosis: Includes but is not limited to in a particular order, closed-head injury, intracranial bleed, skull fracture, traumatic brain injury, concussion, traumatic subarachnoid, epidural, subdural Medical Decision Making: Plan for this patient CT head without contrast rule out significant fracture or bleed, indication for the CT scan is that she is on Xarelto and worsening headache. Re-evaluation: CT scan of the head w/o The results of the study are negative for acute bleed The study was read by Dr. Maxwell I viewed the images myself on the PACS system. 2045: Discuss CT imaging results with this patient she is reassuring. No intracranial bleed or significant fracture. She is comfortable going home. She understands return emergency room if develops worsening symptoms includes vomiting, severe headache, fever questions or concerns. Source: Patient - Personal History Tetanus Vaccine Date: less than 10 years - Medical/Surgical History Hx Asthma: No Hx Chronic Respiratory Disease: Yes Hx Diabetes: No Hx Cardiac Disease: Yes Hx Renal Disease: No Hx Cirrhosis: No Hx Alcoholism: No Hx HIV/AIDS: No Hx Splenectomy or Spleen Trauma: No Other PMH: SZ s/p TBI, neuropathy, hypothyroid, AFLUTTER - Social History Smoking Status: Never smoked Constitutional: Initial Vital Signs Temperature (C) 36.6 C 04/16/17 18:58 Heart Rate 76 04/16/17 18:58 Respiratory Rate 18 04/16/17 18:58 Blood Pressure 170/63 H 04/16/17 18:58 O2 Sat (%) 96 04/16/17 18:58 O2 Delivery Mode Room Air Allergies/Adverse Reactions: meperidine HCl [From Demerol] Allergy (Verified 04/16/17 18:57) Home Medications: Medication Instructions Recorded Levothyroxine [Synthroid 75 mcg 75 mcg PO DAILY06 12/24/12 (*)] clonazePAM [klonoPIN (*)] 1 mg PO DAILY PRN 12/24/12 Cholecalciferol (Vitamin D3) 2,000 unit PO DAILY 08/31/14 [Vitamin D3] busPIRone [Buspar (*)] 5 mg PO BID PRN 05/19/16 lamOTRIGine [Lamotrigine] 150 mg PO DAILY 10/14/16 lamOTRIGine [Lamotrigine] 200 mg PO HS 10/14/16 Aspirin EC [Aspirin EC 81 mg (*)] 81 mg PO DAILY #30 tab 10/18/16 Atorvastatin Calcium [Lipitor 40 40 mg PO DAILY #30 tab 10/18/16 mg (*)] DILTIAZEM HCL [DILTIAZEM 24HR ER] 180 mg PO DAILY 11/13/16 Propafenone HCl Sr [Rythmol Sr 225 mg PO BID 11/13/16 225mg (*)] Acetaminophen [Tylenol 325mg (*)] 650 mg PO Q4HRS PRN #0 tab 11/15/16 Xarelto 03/25/17 Departure - Departure Disposition: Home, Routine, Self-Care Clinical Impression: Hematoma Closed head injury Qualifiers: Encounter type: initial encounter Qualified Code(s): S09.90XA - Unspecified injury of head, initial encounter Condition: Good Instructions: Head Injury (ED) Additional Instructions: 1. Return emergency room if you have worsening pain questions or concerns. Referrals: May Wheat MD [Primary Care Provider] - As per Instructions
[2017-04-16 19:02] VITALS: TEMP 97.9
[2017-04-16] MEDS ORDERED: HYDROCOD/APAP 5/325 PREPACK#6 BTL TAKEHOME ONE (20:52)
[2017-04-16 21:12] VITALS: BP 180/90; PULSE 66; RESP 16; O2SAT 98
== END 2017-04-16 21:12 | disposition home or self-care (01) ==
DX: S00.03XA Contusion of scalp, initial encounter (principal); I25.10 Atherosclerotic heart disease of native coronary artery without angina pectoris; Z79.01 Long term (current) use of anticoagulants; Z79.82 Long term (current) use of aspirin; W22.8XXA Striking against or struck by other objects, initial encounter

== ENCOUNTER 2017-04-21 18:51 | Observation (INO) | payer OTHER ==
[2017-04-21] MEDS ORDERED: LORazepam 2 MG/ML INJ IVP ONE (19:03)
--- NOTE | 2017-04-21 19:03 | EDPHY ---
H & P Time Seen by Provider: 04/21/17 18:54 HPI/ROS: CHIEF COMPLAINT: Seizure HISTORY OF PRESENT ILLNESS: History from EMS as the patient is nonverbal. Previous chart reviewed. Old head trauma on Xarelkrunal was seen here on April 16 and had negative head CT. Her friend called EMS when she had a seizure tonight in the movie theater at the [facility]. Typical grand mal and she usually has per EMS about 5 or 6 seizures per year. Apparently she is on Lamictal. She also has atrial fibrillation and is anticoagulated. On arrival to the emergency department the patient had a 2nd seizure and the time of my evaluation she is nonverbal. There was no trauma from her seizure prior to arrival as it occurred in the seat in the movie theater and she did not fall. Her 2nd seizure occurred in the emergency department before she had returned to normal neurologic baseline from the 1st one. Medication compliance unknown. Further history and review of systems unavailable at this time as the patient is nonverbal. PAST MEDICAL HISTORY: Seizure disorder on Lamictal, atrial fibrillation or flutter. Old head trauma with previous cranial surgery and plate. Admission for chronic systolic heart failure and atrial flutter, Dr. Church H &P dated 11/13/2016 personally reviewed Social history: Unknown, nonverbal General Appearance: Nonverbal, obtunded Eyes: No scleral icterus. ENT, Mouth: Clenching teeth. Left periorbital facial bruising. Respiratory: Normal respiratory effort, breath sounds equal, lungs are clear to auscultation. Cardiovascular: Regular rate and rhythm. Gastrointestinal: Abdomen is soft and non tender. Neurological: Lethargic and obtunded. Localizes pain with arms. Skin: Bruising around the right side of the face. Musculoskeletal: No extremity deformity. No lower extremity edema. Psychiatric: Unable, nonverbal. Emergency Department course/MDM: Patient had seizure in the emergency department and I was called emergently to the bedside. 2 mg IV Ativan. Supplemental oxygen by face mask. Noncontrast head CT and EKG. 192: Still obtunded, on nasal cannula now. CT personally interpreted as negative for acute bleed. Discussed with Neurology recommends supportive care and no additional anti epileptic except for the Ativan she was given. Admit to step-down to hospitalist as patient is still altered. Francisco Javier at 1933. Sodium 126, fluids are TKO. Weaned down to nasal cannula oxygen at this time. Chest x-ray for initial hypoxia, does not show aspiration. 2108: Patient is more alert and awake, moving all 4 extremities, no complaints. her friend who was the reporting green party for the 911 call is here at this time. She had 2 seizures tonight without returning to baseline between them. Smoking Status: Never smoked Constitutional: Initial Vital Signs Temperature (C) 37.4 C 04/21/17 19:01 Heart Rate 86 04/21/17 19:01 Respiratory Rate 18 04/21/17 19:01 Blood Pressure 148/78 H 04/21/17 19:01 O2 Sat (%) 75 L 04/21/17 19:01 O2 Delivery Mode Non-Rebreather Mask O2 (L/minute) 4 Allergies/Adverse Reactions: meperidine HCl [From Demerol] Allergy (Verified 04/16/17 18:57) Home Medications: Medication Instructions Recorded Levothyroxine [Synthroid 75 mcg 75 mcg PO DAILY06 12/24/12 (*)] clonazePAM [klonoPIN (*)] 1 mg PO DAILY PRN 12/24/12 Cholecalciferol (Vitamin D3) 2,000 unit PO DAILY 08/31/14 [Vitamin D3] busPIRone [Buspar (*)] 5 mg PO BID 05/19/16 lamOTRIGine [Lamotrigine] 100 mg PO DAILY 10/14/16 Aspirin EC [Aspirin EC 81 mg (*)] 81 mg PO DAILY #30 tab 10/18/16 Propafenone HCl Sr [Rythmol Sr 225 mg PO BID 11/13/16 225mg (*)] Acetaminophen [Tylenol 325mg (*)] 650 mg PO Q4HRS PRN #0 tab 11/15/16 Rivaroxaban [Xarelto] 20 mg PO DAILY 03/25/17 Diltiazem HCl [Dilt-Xr] 120 mg PO DAILY 04/21/17 LAMOTRIGINE [LAMOTRIGINE] 200 mg PO HS 04/21/17 Sertraline HCl [Zoloft 25mg (*)] 25 mg PO DAILY 04/21/17 Medical Decision Making - Diagnostics EKG Interpretation: 12-lead EKG interpreted by me; official reading is in trace master. My interpretation is sinus rhythm with PAC, right axis. Late anterior RS transition, rate 75 Imaging Results: Imaging Impressions Head CT 04/21/17 19:01 Impression: 1. Negative for intracranial hemorrhage. 2. Area of postoperative encephalomalacia in the left temporoparietal region could act as a seizure focus. 3. Chronic sinus changes. 4. See above report for additional findings. Results called and discussed with Dr. Charles Delacruz on April 21, 2017 at 1938 hours. Chest X-Ray 04/21/17 19:04 Impression: Elderly chest negative for acute abnormality. Differential Diagnosis: Differential diagnosis considered for a seizure including but not limited to electrolyte abnormality, alcohol withdrawal, medication noncompliance, head injury, and breakthrough seizure. Consult/Admit Bed Type: [place] [id number] no additional antisz meds now Critical Care Time: Critical care time spent by me, Dr. Delacruz, exclusively with the care of this patient was 30 minutes, exclusive of PA or DIRECT CARE SUPERVISOR time and exclusive of separate procedures. The organ system at risk was neurologic and I ordered multiple diagnostic studies, supplemental oxygen, IV Ativan, discussion with hospitalist and neurologist to stabilize the patient and prevent worsening of the patient's condition. - Data Points Laboratory Results: Laboratory Results 04/21/17 19:05 04/21/17 19:05 04/21/17 04/21/17 04/21/17 19:05 19:05 19:05 WBC RBC Hgb POC Hgb Hct POC Hct MCV MCH MCHC RDW Plt Count MPV Neut % (Auto) Lymph % (Auto) [place] % (Auto) Eos % (Auto) Baso % (Auto) Nucleat RBC Rel Count Absolute Neuts (auto) Absolute Lymphs (auto) Absolute Monos (auto) Absolute Eos (auto) Absolute Basos (auto) Absolute Nucleated RBC Immature Gran % Immature Gran # PT 14.0 SEC SEC (12.0-15.0) INR 1.09 (0.83-1.16) POC Sodium Sodium 126 mEq/L L mEq/L (134-144) POC Potassium Potassium 4.3 mEq/L mEq/L (3.5-5.2) POC Chloride Chloride 91 mEq/L L mEq/L (97-110) Carbon Dioxide 15 mEq/l L mEq/l (22-31) Anion Gap 20 mEq/L H mEq/L (8-16) POC BUN BUN 10 mg/dL mg/dL (7-23) Creatinine 0.8 mg/dL mg/dL (0.6-1.0) POC Creatinine Estimated GFR > 60 Glucose 116 mg/dL H mg/dL (70-100) POC Glucose Calcium 10.0 mg/dL mg/dL (8.5-10.4) Troponin I < 0.012 ng/mL ng/mL (0.000-0.034) 04/21/17 04/21/17 19:05 18:58 WBC 7.57 10^3/uL 10^3/uL (3.80-9.50) RBC 4.14 10^6/uL L 10^6/uL (4.18-5.33) Hgb 13.3 g/dL g/dL (12.6-16.3) POC Hgb 15.0 gm/dL gm/dL (12.6-16.3) Hct 40.2 % % (38.0-47.0) POC Hct 44 % % (38-47) MCV 97.1 fL fL (81.5-99.8) MCH 32.1 pg pg (27.9-34.1) MCHC 33.1 g/dL g/dL (32.4-36.7) RDW 12.3 % % (11.5-15.2) Plt Count 251 10^3/uL 10^3/uL (150-400) MPV 10.7 fL fL (8.7-11.7) Neut % (Auto) 46.0 % % (39.3-74.2) Lymph % (Auto) 42.7 % % (15.0-45.0) Madison % (Auto) 8.6 % % (4.5-13.0) Eos % (Auto) 1.3 % % (0.6-7.6) Baso % (Auto) 1.1 % % (0.3-1.7) Nucleat RBC Rel Count 0.0 % % (0.0-0.2) Absolute Neuts (auto) 3.49 10^3/uL 10^3/uL (1.70-6.50) Absolute Lymphs (auto) 3.23 10^3/uL H 10^3/uL (1.00-3.00) Absolute Monos (auto) 0.65 10^3/uL 10^3/uL (0.30-0.80) Absolute Eos (auto) 0.10 10^3/uL 10^3/uL (0.03-0.40) Absolute Basos (auto) 0.08 10^3/uL 10^3/uL (0.02-0.10) Absolute Nucleated RBC 0.00 10^3/uL 10^3/uL (0-0.01) Immature Gran % 0.3 % % (0.0-1.1) Immature Gran # 0.02 10^3/uL 10^3/uL (0.00-0.10) PT INR POC Sodium 130 mEq/L L mEq/L (134-144) Sodium POC Potassium 3.7 mEq/L mEq/L (3.3-5.0) Potassium POC Chloride 94 mEq/L L mEq/L (97-110) Chloride Carbon Dioxide Anion Gap POC BUN 10 mg/dL mg/dL (7-23) BUN Creatinine POC Creatinine 0.6 mg/dL mg/dL (0.6-1.0) Estimated GFR Glucose POC Glucose 122 mg/dL H mg/dL (70-100) Calcium Troponin I Medications Given: Levothyroxine Sodium (Synthroid) 75 mcg PO DAILY06 NENO Stop: 10/19/17 05:59 Last Admin: 04/22/17 05:25 Dose: 75 mcg Discontinued Medications Lorazepam (Ativan Injection) 2 mg IVP EDNOW ONE Stop: 04/21/17 19:04 Last Admin: 04/21/17 19:05 Dose: 2 mg Point of Care Test Results: 04/21/17 18:58 POC Sodium 130 L POC Potassium 3.7 POC Chloride 94 L POC BUN 10 POC Creatinine 0.6 POC Glucose 122 H Departure - Departure Disposition: [facility] Inpatient Acute Clinical Impression: Seizure disorder, Hyponatremia, Status epilepticus Condition: Serious
[2017-04-21 19:10] LABS: % IMMATURE GRANULYOCYTES 0.3 % (0.0-1.1); ABSOLUTE IMMATURE GRANULOCYTES 0.02 10^3/uL (0.00-0.10); ADD DIFF? NO; ADD MORPH? NO; ADD SCAN? NO; ATYPICAL LYMPHOCYTE FLAG 10 (0-99); FRAGMENT RBC FLAG 0 (0-99); HEMATOCRIT 40.2 % (38.0-47.0); HEMOGLOBIN 13.3 g/dL (12.6-16.3); LEFT SHIFT FLG 0 (0-99); LIPEMIA HEMOLYSIS FLAG 80 (0-99); MEAN CELL HEMOGLOBIN 32.1 pg (27.9-34.1); MEAN CELL HEMOGLOBIN CONCENTR. 33.1 g/dL (32.4-36.7); MEAN CELL VOLUME 97.1 fL (81.5-99.8); MEAN PLATELET VOLUME 10.7 fL (8.7-11.7); PLATELET CLUMPS FLAG 20 (0-99); PLATELET COUNT 251 10^3/uL (150-400); RED BLOOD CELL COUNT 4.14 10^6/uL (4.18-5.33); RED CELL DISTRIBUTION WIDTH 12.3 % (11.5-15.2)
[2017-04-21 19:19] LABS: INR 1.09 (0.83-1.16)
[2017-04-21 19:28] LABS: ANION GAP 20 mEq/L (8-16); CARBON DIOXIDE 15 mEq/l (22-31); CHLORIDE 91 mEq/L (97-110); CREATININE 0.8 mg/dL (0.6-1.0); GLOMERULAR FILTRATION RATE > 60; GLUCOSE 116 mg/dL (70-100); POTASSIUM 4.3 mEq/L (3.5-5.2); SODIUM 126 mEq/L (134-144)
[2017-04-21] MEDS ORDERED: ONDANSETRON DISINTEGRATING 4 MG TAB PO PRN (22:02)
[2017-04-21] MEDS ORDERED: ONDANSETRON 4 MG/2 ML VIAL IVP PRN (22:02)
[2017-04-21] MEDS ORDERED: ACETAMINOPHEN 325 MG TAB PO PRN (22:02)
[2017-04-21] MEDS ORDERED: LORazepam 2 MG/ML INJ IVP PRN (22:17)
--- NOTE | 2017-04-21 23:05 | GHP ---
[f rep st] HISTORY AND PHYSICAL DATE OF ADMISSION: 04/21/2017 CHIEF COMPLAINT: Seizure. HISTORY OF PRESENT ILLNESS: A 77-year-old female with history of TBI, seizure disorder, atrial flutter who was brought in by her friend after she had a seizure while at the movies this evening. She had a second seizure that was witnessed in the emergency room. The patient presented to the emergency room on 04/16 with a left-sided headache. She had some bruising on her face at that time, said she hit her head on a cabinet. CT of the head was negative for acute bleed at that time. The patient was confused during my exam, initially said she does not take her antiepileptic every day, but then she did say she takes them. Denies any fevers , chills, sweats. No nausea, vomiting, diarrhea. No dysuria. REVIEW OF SYSTEMS,: The patient was only able to participate a little during interview; thus, most of the history is from chart review. PAST MEDICAL HISTORY: TBI injury in 1993 requiring craniotomy, WIL, depression , seizure disorder, hypothyroidism, status post thyroidectomy. PAST SURGICAL HISTORY: Thyroidectomy, craniotomy, multiple minor surgeries including varicose vein stripping. HOME MEDICATIONS: Sertraline, Xarelto, diltiazem 120 mg daily, Rythmol 225 mg twice daily, lamotrigine 100 mg daily, levothyroxine 75 mcg, Lamictal 200 mg at bedtime, clonazepam 1 mg daily p.r.n., vitamin D3, BuSpar, aspirin 81 mg daily, Tylenol as needed. ALLERGIES: Meperidine. PHYSICAL EXAMINATION: VITAL SIGNS: Temperature is 37.4, blood pressure 147/78 , respirations 18, with 75% on room air at admission, now 98% on room air. GENERAL: The patient was lying in bed, somnolent, but opens eyes and answers questions. HEENT: PERRLA. Dry mucous membranes. Periorbital ecchymosis left eye. Mild scleral injection. CV: Regular rate and rhythm. No murmurs, gallops, or rubs. LUNGS: Clear to auscultation bilaterally. ABDOMEN: Soft, nontender, nondistended. Positive bowel sounds. : No suprapubic tenderness. MUSCULOSKELETAL: 5/5 upper and lower extremity strength. NEUROLOGIC: 2 through 12 intact. Following commands. Normal sensation to touch. DATA REVIEWED: Chest x-ray personally reviewed by me, no effusion or opacity. Head CT negative for intracranial hemorrhage. Area of postoperative encephalomalacia malacia in left temporoparietal region. ASSESSMENT/PLAN: 1. Acute seizure: Two seizures this evening. It is unclear if the patient is compliant with her home medications. Dr. Gipson was consulted from the emergency room who advised to admit overnight and will make medication recommendations in the morning. P.R.N. Ativan, frequent neuro checks overnight. 2. Compensated systolic heart failure. Euvolemic. Continue home medications. 3. History of atrial flutter status post ablation. Continue diltiazem, Xarelto , Rythmol. 4. Hypovolemic hyponatremia. Suspect this is hypovolemia secondary to seizure. Will check UA and urine lytes before giving IV fluids. Repeating BMP now. 5. Metabolic anion gap acidosis. This is secondary to acute seizure. Will give gentle IV fluids and repeat in the morning. 6. Diet: Regular when mental status clears. 7. Deep venous thrombosis prophylaxis. On Lovenox. DISPOSITION: The patient warrants observation: Acute seizure requiring frequent neuro checks and evaluation by Neurology. /[id number]/MODL MTDD
[2017-04-21 23:24] LABS: ANION GAP 9 mEq/L (8-16); CALCIUM 9.6 mg/dL (8.5-10.4); CARBON DIOXIDE 24 mEq/l (22-31); CHLORIDE 94 mEq/L (97-110); CREATININE 0.6 mg/dL (0.6-1.0); GLOMERULAR FILTRATION RATE > 60; GLUCOSE 102 mg/dL (70-100); POTASSIUM 4.2 mEq/L (3.5-5.2); SODIUM 127 mEq/L (134-144)
[2017-04-22 00:05] LABS: COLOR PALE YELLOW; LEUKOCYTE ESTERASE,URINE NEGATIVE (NEGATIVE); NITRITE,URINE NEGATIVE (NEGATIVE)
[2017-04-22 05:01] LABS: ANION GAP 8 mEq/L (8-16); CALCIUM 9.8 mg/dL (8.5-10.4); CARBON DIOXIDE 24 mEq/l (22-31); CHLORIDE 99 mEq/L (97-110); CREATININE 0.6 mg/dL (0.6-1.0); GLOMERULAR FILTRATION RATE > 60; GLUCOSE 89 mg/dL (70-100); SODIUM 131 mEq/L (134-144)
[2017-04-22] MEDS ORDERED: LEVOTHYROXINE 75 MCG TAB PO SCH (06:00)
[2017-04-22] MEDS ORDERED: DILTIAZEM HCL 120 MG PO SCH (09:00)
[2017-04-22] MEDS ORDERED: NON-FORMULARY NEW DRUG (Cholecalciferol (Vitamin D3) [Vitamin D3] 2,000 UNIT) PO SCH (09:00)
[2017-04-22] MEDS ORDERED: CHOLECALCIFEROL VIT D3 2,000 UNITS TAB/CAP PO SCH (09:00)
[2017-04-22] MEDS ORDERED: PROPAFENONE HCL SR 225 MG CAP PO SCH (09:00)
[2017-04-22] MEDS ORDERED: ASPIRIN EC 81 MG TAB PO SCH (09:00)
[2017-04-22] MEDS ORDERED: lamoTRIgine 100 MG TAB PO SCH ×3 (09:00→21:00)
[2017-04-22] MEDS ORDERED: RIVAROXABAN 20 MG TAB PO SCH ×2 (09:00→21:00)
[2017-04-22] MEDS ORDERED: busPIRone 5 MG TAB PO SCH (09:00)
[2017-04-22] MEDS ORDERED: DILTIAZEM CD 120 MG CAP PO SCH (09:00)
[2017-04-22] MEDS ORDERED: SERTRALINE HCL 25 MG TAB PO SCH (09:30)
[2017-04-22 11:37] VITALS: BP 145/53; PULSE 74; RESP 21; TEMP 98.7; O2SAT 97
--- NOTE | 2017-04-22 12:07 | PDCONSULT ---
Multi Spindle Operator Note: HOSPITAL NEUROLOGY CONSULT REQUESTING: Nydia Mcintyre MD REASON: seizure HPI: 77 year old woman with a history of TBI resulting in seizures came to our facility yesterday evening due to breakthrough seizures. She was at the [employer] with her friend and POA (whom I could not reach this AM). Apparently she had a generalized convulsion at the [employer] and EMS was summoned. She had another witnessed generalized convulsion in the ED. She got lorazepam IV in the ED. CT head wo didn't show any acute pathology, but did show chronic left temporoparietal encephalomalacia. Screening labs in the ED showed hyponatremia at 126. She was admitted for observation. She had no subsequent seizures overnight and returned to baseline. She is followed by Sagar Ovalle PA-C in our clinic for seizures and anxiety. She has been prescribed lamotrigine 150mg in AM and 250mg in PM. Patient lives alone. I get conflicting stories from her regarding her antiseizure medication compliance. She states she has her friend/POA manage her medication box, but patient states the friend does not come over daily. She has clear memory impairment, which is baseline. She denies being sick in the last 1-2 weeks. She was seen on our ED 04/16 for head trauma from hitting her head on a cabinet without LOC, but with ecchymosis of the left face - CT head at that time showed nothing acute. ROS: As per the HPI, otherwise a complete 12 point ROS was performed and is negative ALLERGIES AND MEDS: As recorded in the EMR - reviewed and reconciled PFSH: As per the intake H&P by Dr. Mcintyre from yesterday EXAM: VS reviewed in EMR GEN: thin elderly woman laying in NAD HEENT: NCAT, sclera anicteric, conjunctiva not injected, MMM, oropharynx clear, no scalp tenderness NECK: supple, nontender, no meningismus CV: RRR s1 s2 wo m/r/c/g. Carotid pulses 2+ wo bruit NEURO: MS: awake, alert, oriented to self, situation only. Speech nondysarthric, but content is quite tangential and sometime pressured. No language disturbance. Follows commands. Attends to both sides. 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 Mood euthymic. Good fund of knowledge. CN: pupils 4mm round and reactive. Intolerant of fundoscopy. VFF. Primary gaze centered. Full ocular motility. Facial sensation preserved. Face symmetric. Hearing grossly intact to finger rub. Palatoglossal movements intact. Shoulder shrug and head turn strong. MOTOR: reduced bulk throughout, normal tone. No adventitial movements. Full power throughout. SENSORY: intact LT/PP throughout and symmetric. No extinction. COORD: no ataxia FN/HS. Alexis labored. REFLEX: plantars down. No clonus. Absent ankle jerks, other DTRS 09/03. GAIT: deferred to PT safety eval DATA REVIEW: Labs reviewed in EMR PERSONALLY INTERPRETED RESULTS AND DATA: CT head wo as per the HPI IMPRESSION AND RECOMMENDATIONS: // BREAKTHROUGH SEIZURE // TBI // SYMPTOMATIC EPILEPSY FROM TBI Patient with breakthrough seizure in the setting of known symptomatic epilepsy from her TBI. Question about her compliance with antiseizure medication. She was also hyponatremic, though not to the degree of provoking a primary seizure, but perhaps lowering her seizure threshold with a known substrate for seizure. Could just be a sporadic breakthrough, as well. No toxic/metabolic/infectious etiology for provoking a seizure. Will check lamotrigine level to assess compliance. Recommend she continue on her current antiseizure medication regimen. I think she would benefit from home health assistance with her medications to ensure compliance. Seizure safety precautions reinforced, such as not swimming/tub bathing alone, not climbing heights, no operating heavy machinery and not performing other activities that could put herself or others in harm's way due to a seizure. Driving restriction for 90 days after a seizure. Followup with Sagar Ovalle in 2-4 weeks.
--- NOTE | 2017-04-22 17:45 | PDDCSUM ---
Discharge Summary Discharge Summary: Dates of service 04/21-04/22/17 Discharge dx: # breakthrough seizure # chronic systolic heart failure # chronic a flutter # hyponatremia # TBI # AGMA Consultations: neurology Procedures performed: head ct Hospital course by problem: # seizure: patient with hx of seizures and breakthrough seizure now on her usual regimen. Med compliance questionable (has a hx of issues with med compliance) checking lamictal levels, will have her f/u with neurology in the next couple of weeks but will continue on current meds until then, recommending seizure precautions including no driving for now # chronic a flutter: continued on home meds including ac # chronic systolic heart failure: euvolemic # hyponatremia: relatively mild but possibly contributing to lowering her seizure threshold # TBI # AGMA : in setting of seizure and likely related to lactic acidosis DC home F/u with PCP and neurology No changes made to home medications
== END 2017-04-22 14:40 | disposition home or self-care (01) ==
LOC: EDUNIT# → INTOOBSV 19:33 → F2N 22:24
PROVIDERS: ADMIT Internal Medicine; ATTEND Internal Medicine
DX: G40.909 Epilepsy, unspecified, not intractable, without status epilepticus (principal); I50.22 Chronic systolic (congestive) heart failure; I48.92 Unspecified atrial flutter; E87.1 Hypo-osmolality and hyponatremia; E87.2 Acidosis; I48.91 Unspecified atrial fibrillation; G47.33 Obstructive sleep apnea (adult) (pediatric); F32.9 Major depressive disorder, single episode, unspecified; Z79.01 Long term (current) use of anticoagulants; Z87.820 Personal history of traumatic brain injury; Z90.89 Acquired absence of other organs
CPT/HCPCS: 70450; 71010; 96374; 97161; 97166; 97530; 99291; G0378; G8978; G8979; G8980; G8987; G8988; G8989; 80175-90; 82947-QW

== ENCOUNTER → 2017-06-10 | Outpatient (CLI) | payer OTHER | LOC: FIMAGING 12:45 | PROVIDERS: ATTEND Internal Medicine Endocrinology, Diabetes & Metabolism | DX: Z13.820 Encounter for screening for osteoporosis (principal); M81.0 Age-related osteoporosis without current pathological fracture; Z78.0 Asymptomatic menopausal state ==

== ENCOUNTER → 2017-10-05 | Outpatient (CLI) | payer OTHER ==
[~2017-10-05] MED LIST: DEPO METHYLPREDNISOLONE 40 MG/ML SDV ONE; IOPAMIDOL (ISOVUE 370) 100 ML BTL IV ONE; LIDOCAINE 1% 300 MG/30 ML SDV ONE; ROPIVACAINE HCL 150 MG/30 ML INJ ONE
== END ==
LOC: FIMAGING 10:24
PROVIDERS: ATTEND Orthopaedic Surgery
PROC: 3E0U3BZ Introduction of Anesthetic Agent into Joints, Percutaneous Approach (ICD-10-PCS; principal; 2017-10-05)
PROC: 3E0U33Z Introduction of Anti-inflammatory into Joints, Percutaneous Approach (ICD-10-PCS; principal; 2017-10-05)
DX: M25.551 Pain in right hip (principal)
CPT/HCPCS: 20610; J1030; J2795; Q9967

== ENCOUNTER → 2017-11-16 | Outpatient (CLI) | payer OTHER | LOC: BHFA 13:30 | PROVIDERS: ATTEND Internal Medicine Cardiovascular Disease | DX: I25.10 Atherosclerotic heart disease of native coronary artery without angina pectoris (principal); I48.0 Paroxysmal atrial fibrillation ==

== ENCOUNTER → 2018-01-27 | Outpatient (CLI) | payer OTHER | LOC: FIMAGING 09:01 | PROVIDERS: ATTEND Surgery | DX: T85.43XA Leakage of breast prosthesis and implant, initial encounter (principal) | CPT/HCPCS: 0159T; C8907 ==

== ENCOUNTER 2018-07-07 09:32 | Inpatient (IN) | payer OTHER ==
[2018-07-07 10:34] LABS: PLATELET COUNT 226 10^3/uL (150-400)
--- NOTE | 2018-07-07 11:08 | EDPHY ---
General - History Smoking Status: Never smoked Time Seen by Provider: 07/07/18 10:07 Narrative: CHIEF COMPLAINT: Breast hematoma, worried about infection HISTORY OF PRESENT ILLNESS: Patient presents by private vehicle with complaints of breast hematoma and were divided affection. She states that she has had problems with breast implants over the past few months. This is isolated to the right breast. It has been constant duration. She has had some leakage of silicone 4 years and some difficulties with redness at the site for the past few months. Over the past 2 weeks however, she has been worried about infection, redness and hematoma. She has been seen by a plastic surgeon with a pending breast specialist referral to [facility]. She has been on Keflex for nearly a week for possible infection. She has no chest pain or exertional pain, but she is concerned as the wound is getting worse of the right breast. No active bleeding but she does have some drainage in bleeding at time. No fever. No shortness of breath. No other associated complaints or modifying factors. REVIEW OF SYSTEMS: 10 systems were reviewed and negative with the exception of the elements mentioned in the history of present illness. PCP: [facility]ISTS: Plastic surgery, Dr. Addison PAST MEDICAL HISTORY: Seizure disorder, TBI, neuropathy, hypothyroid, atrial flutter PAST SURGICAL HISTORY: No recent surgical history. Bilateral breast implants 45 years ago SOCIAL HISTORY: Nonsmoker. Lives independently. FAMILY HISTORY: Noncontributory EXAMINATION: Vitals: Triage VS reviewed General Appearance: Alert, no distress. Well appearing. Head: normocephalic, atraumatic Eyes: Pupils equal and round, no conjunctival pallor or injection ENT, Mouth: Mucous membranes moist Neck: Normal inspection, supple, non-tender Respiratory: Lungs are clear to auscultation Cardiovascular: Regular rate and rhythm. No murmur. Gastrointestinal: Abdomen is soft and nontender Back: non-tender, no bony abnormalities Neurological: A&O, nonfocal, normal gait Skin: Warm and dry. Large area of wound dehiscence underneath the right breast , measuring 6-7 cm with exposure of underlying silicone breast implant. There is a 3 cm hematoma just medial to this. No surrounding cellulitis. Extremities: Nontender, no pedal edema Psychiatric: Mood and affect normal DIFFERENTIAL DIAGNOSES: Including but not limited to implant dehiscence, abscess, cellulitis, hematoma MDM: 10:10 a.m. Small right-sided breast hematoma with a larger area of partial dehiscence of the underlying silicone implant just adjacent, laterally. Her vital signs are within limits. No evidence of chest wall cellulitis. There is no fluctuance. She has been on Keflex for nearly a week. She has seen a plastic surgeon, and I will contact him for further recommendation. 10:45 a.m. Plastic surgeon has been re-paged. 11:15 a.m. Plastic surgeon paged again. 11:35 a.m. I have discussed the case with ANASTASIYA Vizcarra with Dr. Addison. She states that the on-call surgeon's are unable to see her today but that they could see her tomorrow in the office. I have informed her that the implant is partially dehisced from the wound. Dr. Chaudhari has evaluated the wound and discussed with Carmita. 11:45 a.m. After further discussion with plastic surgery team, patient will be admitted to the hospital for further care and surgical intervention. Plastic surgery has informed us that the patient's cancel her surgery twice stating that she has felt depressed at times. I re-examined the patient and she agrees that she has felt depressed at time. She also has difficulty focusing on our conversation and states that she can't have surgery today. She would lot delineate too much me, but states that she is concerned about the Xarelto. The patient also has difficulty focusing on the importance that I am stressing on the need for surgical intervention. She says that she feels the could wait. After discussing with the positive surgery team, Dr. Chaudhari and further interaction with her, I feel that she does not express the full capabilities of understanding the gravity of the scenario, thus I placed her on a medical incapacity hold. Hospitalist will see the patient shortly 12:30 p.m. Patient has been evaluated by Dr. Muñiz. Do feel that she does not need a cardiac clearance at this time but does agree with our management thus far. Admitted to his service in stable condition. SUPERVISION: Patient was independently examined, but I discussed the case with my secondary supervising physician Dr. Chaudhari CONSULTATION: Plastic surgery (Chapo Yusuf) Medical Decision Making: I did evaluate the patient independently. She has dehisced surgical wound and breast implant visible a protruding. She has been lost to follow-up and canceled to surgeries to have it repaired removed. I recommended that she be admitted to medical service well surgery is planned and hopefully can happen tomorrow. I do not feel that she currently has capacity to make medical decisions. We will place her on a a medical in capacity hold. (Norberto Chaudhari) - Objective Vital Signs: Initial Vital Signs Temperature (C) 36.5 C 07/07/18 09:36 Heart Rate 72 07/07/18 09:36 Respiratory Rate 16 07/07/18 09:36 Blood Pressure 124/94 H 07/07/18 09:36 O2 Sat (%) 97 07/07/18 09:36 O2 Delivery Mode Room Air Allergies/Adverse Reactions: meperidine HCl [From Demerol] Allergy (Verified 07/07/18 09:33) Home Medications: Medication Instructions Recorded Levothyroxine [Synthroid 75 mcg 75 mcg PO DAILY06 12/24/12 (*)] clonazePAM [klonoPIN (*)] 1 mg PO DAILY PRN 12/24/12 Cholecalciferol (Vitamin D3) 2,000 unit PO DAILY 08/31/14 [Vitamin D3] busPIRone [Buspar (*)] 5 mg PO DAILY 05/19/16 lamOTRIGine [Lamotrigine] 150 mg PO DAILY 10/14/16 Aspirin EC [Aspirin EC 81 mg (*)] 81 mg PO DAILY #30 tab 10/18/16 Propafenone HCl Sr [Rythmol Sr 225 mg PO BID 11/13/16 225mg (*)] Rivaroxaban [Xarelto] 20 mg PO HS 03/25/17 Diltiazem HCl [Dilt-Xr] 120 mg PO DAILY 04/21/17 LAMOTRIGINE 250 mg PO HS 04/21/17 Acetaminophen [Tylenol ES 500 mg 500 - 1,000 mg PO BID PRN 07/07/18 (*)] Cephalexin [Keflex (*)] 500 mg PO QID 07/07/18 busPIRone [Buspar (*)] 10 mg PO HS 07/07/18 lamoTRIgine [LamICTAL] 25 mg PO DAILY 07/07/18 Laboratory Results: Laboratory Results 07/07/18 10:20 11/07/18 11/07/18 11/07/18 10:27 10:20 10:20 WBC 4.66 10^3/uL 10^3/uL (3.80-9.50) RBC 4.22 10^6/uL 10^6/uL (4.18-5.33) Hgb 13.5 g/dL g/dL (12.6-16.3) POC Hgb 13.9 gm/dL gm/dL (12.6-16.3) Hct 40.2 % % (38.0-47.0) POC Hct 41 % % (38-47) MCV 95.3 fL fL (81.5-99.8) MCH 32.0 pg pg (27.9-34.1) MCHC 33.6 g/dL g/dL (32.4-36.7) RDW 13.0 % % (11.5-15.2) Plt Count 226 10^3/uL 10^3/uL (150-400) MPV 10.8 fL fL (8.7-11.7) Neut % (Auto) 54.9 % % (39.3-74.2) Lymph % (Auto) 33.3 % % (15.0-45.0) [place] % (Auto) 8.8 % % (4.5-13.0) Eos % (Auto) 1.5 % % (0.6-7.6) Baso % (Auto) 1.3 % % (0.3-1.7) Nucleat RBC Rel Count 0.0 % % (0.0-0.2) Absolute Neuts (auto) 2.56 10^3/uL 10^3/uL (1.70-6.50) Absolute Lymphs (auto) 1.55 10^3/uL 10^3/uL (1.00-3.00) Absolute Monos (auto) 0.41 10^3/uL 10^3/uL (0.30-0.80) Absolute Eos (auto) 0.07 10^3/uL 10^3/uL (0.03-0.40) Absolute Basos (auto) 0.06 10^3/uL 10^3/uL (0.02-0.10) Absolute Nucleated RBC 0.00 10^3/uL 10^3/uL (0-0.01) Immature Gran % 0.2 % % (0.0-1.1) Immature Gran # 0.01 10^3/uL 10^3/uL (0.00-0.10) PT 12.3 SEC SEC (12.0-15.0) INR 0.89 (0.83-1.16) APTT 27.3 SEC SEC (23.0-38.0) POC Sodium 140 mEq/L mEq/L (135-145) POC Potassium 4.3 mEq/L mEq/L (3.3-5.0) POC Chloride 103 mEq/L mEq/L (97-110) POC BUN 12 mg/dL mg/dL (7-23) POC Creatinine 0.6 mg/dL mg/dL (0.6-1.0) POC Glucose 90 mg/dL mg/dL (70-100) Medications Given: Acetaminophen (Tylenol) 650 mg PO Q4HRS PRN PRN Reason: Pain, Mild/Fever, Can Take PO Stop: 01/03/19 13:07 Last Admin: 07/07/18 14:23 Dose: 650 mg Sodium Chloride (Ns) 1,000 mls @ 125 mls/hr IV CONT NENO Stop: 07/07/18 21:14 Last Admin: 07/07/18 14:22 Dose: 1,000 mls Discontinued Medications Sodium Chloride (Ns) 1,000 mls @ 0 mls/hr IV EDNOW ONE; Wide Open PRN Reason: Protocol Stop: 07/07/18 12:04 Last Admin: 07/07/18 12:07 Dose: 1,000 mls Point of Care Test Results: Chemistry 07/07/18 10:27 POC Sodium 140 mEq/L mEq/L (135-145) POC Potassium 4.3 mEq/L mEq/L (3.3-5.0) POC Chloride 103 mEq/L mEq/L (97-110) POC BUN 12 mg/dL mg/dL (7-23) POC Creatinine 0.6 mg/dL mg/dL (0.6-1.0) POC Glucose 90 mg/dL mg/dL (70-100) ISTAT H&H 07/07/18 10:27 POC Hgb 13.9 gm/dL gm/dL (12.6-16.3) POC Hct 41 % % (38-47) Departure - Departure Disposition: [facility] Inpatient Acute Clinical Impression: Dehiscence of external surgical wound Qualifiers: Encounter type: initial encounter Qualified Code(s): T81.31XA - Disruption of external operation (surgical) wound, not elsewhere classified, initial encounter Breast implant rupture Qualifiers: Encounter type: initial encounter Qualified Code(s): T85.43XA - Leakage of breast prosthesis and implant, initial encounter Condition: Good
[2018-07-07 11:55] LABS: INR 0.89 (0.83-1.16); PROTIME(PATIENT) 12.3 SEC (12.0-15.0)
[2018-07-07] MEDS ORDERED: NS 1,000 ML IV ONE (12:03)
[2018-07-07] MEDS ORDERED: ONDANSETRON 4 MG/2 ML VIAL IVP PRN (13:08)
[2018-07-07] MEDS ORDERED: ONDANSETRON DISINTEGRATING 4 MG TAB PO PRN (13:08)
[2018-07-07] MEDS ORDERED: NS 1,000 ML IV SCH (13:15)
--- NOTE | 2018-07-07 13:53 | GHP ---
DATE OF ADMISSION: 07/07/2018 HISTORY OF PRESENT ILLNESS: The patient is a 78-year-old female with a history of atrial flutter and remote breast implants, as well as seizure disorder and short-term memory issues, who presents to [facility] ER today with dehiscence of her right breast. This has been ongoing for some time. The patient richmond d an MRI in December of this year, showing rupture of the silicone component with silicone fragments in he r breast area. It has been eroding outside of her skin for a number of weeks. It sounds like Plasti c Surgery has wanted to excise this for a number of weeks. There have been a couple of times where s he canceled surgery reluctantly. She is here today. She recently was given a course of oral antibiotics for this. She has not had fe madalyn, chills, sputum, palpitations, chest pain. She does not have chest pain with exertion. Regarding cardiac workup, she had a stress test in October of this year, showing good exercise toleranc e, with no EKG changes. This is a low risk test. She had an echocardiogram showing diastolic dysfun ction. She had an angiogram done prior to that with no flow-limiting coronary disease. She does not have stents. REVIEW OF SYSTEMS: Complete 10-point review of systems conducted and negative, except as noted in e HPI. PAST MEDICAL HISTORY: Nonischemic systolic heart failure with an EF of 45%, seizure disorder, histor y of traumatic brain injury, atrial fibrillation/flutter, remote breast implants. She had a coronary angiogram in October 2016, showing mild CAD. ALLERGIES: Meperidine. HOME MEDICATIONS: Lamictal, clonazepam, buspirone, sertraline, Xarelto (last taken last evening), pr opafenone, levothyroxine, recent Keflex, diltiazem, aspirin, and acetaminophen. SOCIAL HISTORY: She lives alone, traumatic brain injury. HABITS: No alcohol. No tobacco. FAMILY HISTORY: Parents . PHYSICAL EXAMINATION: VITAL SIGNS: Temp 36.5, blood pressure 124/94, pulse 72, breathing 16 times a minute, 97% on room air. GENERAL: No acute distress. HEENT: Sclerae anicteric. Oropharynx clear . Mucous membranes are moist. NECK: Supple. No lymphadenopathy or JVD. LUNGS: Clear to ausculta tion bilaterally. HEART: S1, S2. Holosystolic murmur. ABDOMEN: Soft, nontender, nondistended. B REASTS: Her left breast shows misshapen implant. Right breast shows the lower 10% to 15% of the imp lant is outside the skin. There is probable silicone leaking out of it. There is no surrounding jeannie lulitis. There is no odor. There is no fluctuance. LOWER EXTREMITIES: Without edema. Calves are nontender. SKIN: Without rash. NEUROLOGIC: Exam is nonfocal. LABS: White count 4.66, hematocrit 40. Platelets are 226,000. INR is 0.9. Sodium 140, potassium 4 .3, chloride 103, BUN 12, creatinine 0.6, glucose 90. There is no imaging. I have discussed the case with cardiology PA, as well as ANGELITO Roman, from the emergency departm ent. ASSESSMENT/PLAN: This is a 78-year-old female with dehisced implant, in need of urgent excision. 1. Dehiscence. The patient does not appear infected to me. She recently completed a course of Kefl ex. I am not sure what to make of that. Will hold antibiotics for the time being. She does not hav e a white count, fever, or tachycardia. 2. Preoperative cardiac evaluation. The patient has had numerous recent studies negative for eviden ce of anginal symptoms and does not have significant coronary disease. She can achieve greater than 4 METs at baseline without symptoms. She may proceed to the OR without further workup or interventio n. 3. Atrial flutter. Continue her diltiazem and propafenone. Hold her Xarelto and aspirin. 4. Systolic heart failure. She has a slightly low ejection fraction. This is nonischemic. Care an d her fluid management otherwise does not impair her ability to go to surgery as is. 5. Seizure disorder. Continue her Lamictal. 6. Prophylaxis: SCDs, resume Xarelto following surgery. DISPOSITION: Inpatient status. /[id number]/MODL
[2018-07-07] MEDS ORDERED: clonazePAM 1 MG TAB PO PRN (14:13)
[2018-07-07] MEDS ORDERED: ACETAMINOPHEN 500 MG TAB PO PRN (14:13)
[2018-07-07] MEDS: ACETAMINOPHEN 325 MG TAB PO PRN (14:23)
[2018-07-07] MEDS ORDERED: oxyCODONE IR 5 MG TAB PO PRN (15:05)
--- NOTE | 2018-07-07 15:58 | PDMN ---
Medical Necessity Medical necessity: Pt meets IP criteria per MD & MCG; est los >2 mn for eval/tx of dehisced R breast implant w/failed outpatient tx; requiring urgent excision w /preoperative cardiac eval; hx TBI, heart failure, seizures & a flutter
--- NOTE | 2018-07-07 17:24 | WOCRNPDOC ---
WOCRN Advanced Assessment Note - Skin Integrity Problem, Advanced Assess Right Breast Surgical Wound/Incision Dressing Type: ABD Pad, Telfa Dressing Description: Clean/Dry, Intact Exudate Amount: Scant Exudate Characteristic(s): Serosanguinous Integumentary Issue Intervention: Dressing Changed Stephenie Wound Tissue: Erythema, Painful/Tender Site Measurement - Head-to-Toe Length X Width X Depth (cm): 5.8x11.5xunknown Skin Integrity Problem Comment: Ruptured right breast silicone implant. Insertion site has dehisced and implant is pushing out through the opening. The implant is oozing silicone from it's lateral portion and has a fold in it. There is erythema on the skin surrounding the opening where the implant is exposed, but it does not appear acutely infected. Patient was asking about a cream that may be able to help, however it was explained that she needs surgery. She did say she has been aware that the implant was ruptured. She reports that the left breast implant has also ruptured and was leaking internally though it has not broken through the skin. She does confirm that Dr. Addison from [facility] has been her surgeon in the past. There is no wound care solution for this patient. Plastic surgery consultation is necessary. Keep area clean and dry. May cover with telfa/ABD and change prn. Wound care will sign off. Please reconsult per plastic surgeon request. Yue LANGFORD in room for care.
[2018-07-07] MEDS: PROPAFENONE HCL SR 225 MG CAP PO SCH (20:19)
[2018-07-07] MEDS ORDERED: busPIRone 10 MG TAB PO SCH (21:00)
[2018-07-07] MEDS ORDERED: lamoTRIgine 100 MG TAB PO SCH (21:00)
--- NOTE | 2018-07-08 04:47 | GCON ---
INPATIENT CONSULTATION NOTE DATE OF CONSULTATION: 07/07/2018 REASON FOR CONSULTATION: Extruding right breast implant. BRIEF CLINICAL HISTORY: The patient is a well known 78-year-old white female to our practice and has been under care of my partner, Dr. Isidro Addison, for some time. There have been several attempts to remove her implants and she has canceled surgery multiple times. She presented today with an extrudi ng implant and was admitted. She was stable when I examined her and upon examining the breast, she h ad a partially extruded open wound communicating with the right inferior breast pocket. The implant was removed at the bedside and an absorptive dressing was applied. I will plan to allow her to be di scharged from the hospital tomorrow at the discretion of her admitting team. We will plan to hold he r anticoagulation in order to debride and close the right breast pocket as well as remove the rupture d left breast implant electively next week at our surgery center. She is clear to shower, but should not submerge. I recommended changing her dressings at the inferior aspect of the right breast as ne cessary twice a day and as necessary to keep her clothing clean. We will arrange followup, but she i s cleared to be discharged from a Plastic Surgery perspective. /[id number]/MODL
[2018-07-08 05:22] LABS: PLATELET COUNT 189 10^3/uL (150-400)
[2018-07-08] MEDS ORDERED: LEVOTHYROXINE 75 MCG TAB PO SCH (06:00)
[2018-07-08] MEDS: ACETAMINOPHEN 325 MG TAB PO PRN (07:10)
[2018-07-08 08:13] VITALS: BP 120/54
[2018-07-08] MEDS: PROPAFENONE HCL SR 225 MG CAP PO SCH (08:20)
[2018-07-08] MEDS ORDERED: DILTIAZEM CD 120 MG CAP PO SCH (09:00)
[2018-07-08] MEDS ORDERED: busPIRone 5 MG TAB PO SCH (09:00)
[2018-07-08] MEDS ORDERED: lamoTRIgine 25 MG TAB PO SCH (09:00)
[2018-07-08] MEDS ORDERED: CHOLECALCIFEROL VIT D3 2,000 UNITS TAB/CAP PO SCH (09:00)
[2018-07-08] MEDS ORDERED: lamoTRIgine 100 MG TAB PO SCH (09:00)
--- NOTE | 2018-07-08 10:02 | HOSPPROG ---
Hospitalist Progress Note Assessment/Plan: 78 yo F w ruptured breast implant that has eroded through skin home today w home nursing visit and plastics follow up see dc summary patient improved more quickly than anticipated and outpatient plan established Subjective: implant removed at bedside by plastics Objective: Vital Signs Temp Pulse Resp BP Pulse Ox 36.6 C 65 16 120/54 L 95 07/08/18 08:12 07/08/18 08:12 07/08/18 08:12 07/08/18 08:12 07/08/18 08:12 Laboratory Results 07/08/18 04:31 07/08/18 04:31 07/07/18 07/08/18 07/09/18 05:59 05:59 05:59 Intake Total 1500 Balance 1500 PT 12.3 SEC (12.0-15.0) 07/07/18 10:20 INR 0.89 (0.83-1.16) 07/07/18 10:20 - Physical Exam Constitutional: no apparent distress, appears nourished Eyes: PERRL, anicteric sclera Ears, Nose, Mouth, Throat: moist mucous membranes, hearing normal Cardiovascular: regular rate and rhythym, no murmur, rub, or gallop, other ( chest wound draining non purulent material) Respiratory: no respiratory distress, no rales or rhonchi Gastrointestinal: normoactive bowel sounds, soft, non-tender abdomen Genitourinary: no bladder fullness, No soriano in urethra Skin: warm, mottled Musculoskeletal: full muscle strength Neurologic: AAOx3 Psychiatric: interacting appropriately ICD10 Worksheet Patient Problems: Problems Problem Status Onset Breast implant rupture Acute Dehiscence of external surgical wound Acute Atrial flutter Acute Atrial flutter with rapid ventricular response Acute Breakthrough seizure Acute CAD (coronary artery disease) Acute Chest pain Acute Confusion after a seizure Acute Congestive heart failure Acute Dizziness Acute Dysarthria Acute Dyspnea Acute Facial contusion Acute Hyponatremia Acute Noncompliance Acute Seizure Acute Seizure disorder Acute Status epilepticus Acute
--- NOTE | 2018-07-08 10:03 | PDIAF ---
- Diagnosis Diagnosis: ruptured breast plant Code Status: Full Code - Medication Management Discharge Medications: electronically signed and located in the Home Medication List. - Orders Services needed: Registered Nurse Isolation Type: None Additional Instructions: Call Dr. Nelson immediately if you have any signs of infection, including fever , foul-smelling drainage, red streaks, or severe pain. Change the dressing twice a day. The visiting nurse can help you with this. You may shower, but do not submerge in water (no tub bath, hot tubs, or swimming ). Always put a clean, dry dressing on after bathing. - Follow Up Care Current Providers and Referrals: Senthil Nelson JR, MD [Medical Doctor] - follow up as scheduled (Plastic surgeon. Please make an appointment to treat your wound to prevent serious infection.) NONE *PRIMARY CARE P,. [Primary Care Provider] - As per Instructions
--- NOTE | 2018-07-08 10:50 | GDS ---
DISCHARGE DIAGNOSES: 1. Atrial fibrillation/flutter on propafenone, diltiazem, and Xarelto. 2. Seizure disorder. 3. History of traumatic brain injury with memory issues. 4. Ruptured breast implant on the left. Please see admission History and Physical by Dr. Jonathan Muñiz. The patient presented with a breast implantation that had eroded around the skin. She had been followed by Plastics, who had attempted to remove this a couple of times, but she had canceled surgeries for some uncertain reasons. She was seen by Plastics, who removed it at the bedside. There was no evidence of infection. She did not h ave a white count. She did not have a fever. She was not tachycardic. It was not tender. There wa s no purulence and it did not have a foul odor. She is discharged home. She has outpatient followup with Plastic Surgery for definitive surgery. The patient does have a significant cardiac history but has no contraindications to proceeding to [facility]. Her Xarelto and aspirin were held at this time and they should be resumed postoperatively. If there is concern about when to do it, I would refer her back to her statement clerks supervisor. She is followed a [facility]. /[id number]/MODL
--- NOTE | 2018-07-08 11:54 | WOCRNPDOC ---
WOCRN Advanced Assessment Note - Skin Integrity Problem, Advanced Assess Right Breast Surgical Wound/Incision Dressing Type: ABD Pad Dressing Description: Not Intact (pulled to one side), Shadowed Exudate Amount: Moderate Exudate Characteristic(s): Serosanguinous Integumentary Issue Intervention: Visualized Under Dressing Wound Bed Constitution: Smooth Tissue, Subcutaneous Fat Skin Integrity Problem Comment: Implant was removed yesterday. Wound care reconsulted for dressing orders. Wound RN agrees with Dr. Nelson. Gently cleanse open tissue at base of wound with sterile saline. Change ABD's BID and prn. Keep clean and dry. Wound care will sign off.
--- NOTE | 2018-07-08 17:35 | ASDISCHSUM ---
Discharge Information Plan Status:Home with Home Health Medically Cleared to Leave:07/07/2018 Discharge Date:07/08/2018 01:10 PM CM D/C Disposition:Home Health Service ADT D/C Disposition:Home Health Service Projected Discharge Date:07/09/2018 11:00 AM Transportation at D/C:Friend Discharge Delay Reason: Follow-Up Date:07/09/2018 11:00 AM Discharge Slot: Final Diagnosis:breast implant dehiscence Placement Information Referral Type:*Home Health Care Services Referral ID:[id number] Provider Name:[facility] Care Address [address] Address 2: City:[place] Selection Factors: State:[place] Patient Contact Information Contact Name:RED Relationship:Friend Address: City:[place] Alternate Phone: State/Zip Code:[place] Email: Financial Information Financial Class:Medicare Primary Plan Desc:MEDICARE INPATIENT Primary Plan Number:[id number] Secondary Plan Desc:MINNA DOMINICK RIGGS Secondary Plan Number:[id number] Assessment Information LACE LACE Length of stay for Answers: Less than 1 day current admission Acuity / Level of Answers: Yes Care: Did the patient have an inpatient admission? Comorbidities - select Answers: Coronary Artery Disease all that apply Opioid dependence / Chronic pain Other Notes: Seizure disorder; TBI: Neuropat hy; AFlutter # of Emergency department Answers: 1-2 visits in the last 6 months Score: 11 Date Signed: 07/08/2018 05:34 PM Electronically Signed By:Laureen Garcia Case Management Discharge Plan Note Case Management Discharge Discharge Order Complete? Answers: Yes Patient to Obtain Answers: Independently Medications Transportation Arranged Answers: Other Notes: self Faxed Final Orders Answers: Yes Agency/Facility Transfer Answers: Yes Report Printed & Faxed to Receiving Agency Family Notified Answers: No Notes: pt to notify on her own Discharge Comments Notes: Pt to discharge home and follow up with plastic surgery for outpatient wound repair. Pt will be followed by BC RN for wound care until that time. No further CM needs noted at this time. Date Signed: 07/08/2018 05:32 PM Electronically Signed By:Laureen Garcia Intervention Information
== END 2018-07-08 13:10 | disposition home health service (06) | DRG 600 ==
LOC: F1N 14:10
PROVIDERS: ADMIT Internal Medicine; ATTEND Internal Medicine
PROC: [UNRECOGNIZED PROCEDURE] (principal; 2018-07-07)
DX: T85.43XA Leakage of breast prosthesis and implant, initial encounter (principal); T81.31XA Disruption of external operation (surgical) wound, not elsewhere classified, initial encounter; I48.92 Unspecified atrial flutter; I50.20 Unspecified systolic (congestive) heart failure; G40.909 Epilepsy, unspecified, not intractable, without status epilepticus; R41.3 Other amnesia
CPT/HCPCS: 82435-PO; 82565-PO; 82947-PO; 84132-PO; 84295-PO; 84520-PO; 85014-PO

== ENCOUNTER → 2018-10-09 | Outpatient (CLI) | payer OTHER | LOC: FIMAGING 08:39 | PROVIDERS: ATTEND Orthopaedic Surgery | DX: M51.36 Other intervertebral disc degeneration, lumbar region (principal); M48.061 Spinal stenosis, lumbar region without neurogenic claudication; M99.73 Connective tissue and disc stenosis of intervertebral foramina of lumbar region ==

== ENCOUNTER 2018-11-19 12:56 | Day surgery (SDC) | payer OTHER ==
[2018-11-19] MEDS ORDERED: IOPAMIDOL (ISOVUE-M 300) 15 ML VIAL ONE (14:15)
[2018-11-19] MEDS ORDERED: TRIAMCINOLONE ACETONIDE 40 MG/ML VIAL ONE (14:15)
== END 2018-11-19 15:34 | disposition home or self-care (01) ==
LOC: FIMAGING 12:56
PROVIDERS: ATTEND Orthopaedic Surgery
PROC: 3E0S3BZ Introduction of Anesthetic Agent into Epidural Space, Percutaneous Approach (ICD-10-PCS; principal; 2018-11-19)
PROC: 3E0S33Z Introduction of Anti-inflammatory into Epidural Space, Percutaneous Approach (ICD-10-PCS; principal; 2018-11-19)
DX: M54.16 Radiculopathy, lumbar region (principal)
CPT/HCPCS: J3301; Q9967

== ENCOUNTER → 2018-11-26 | Outpatient (CLI) | payer OTHER | LOC: BHCLAF 14:00 | PROVIDERS: ATTEND Internal Medicine Cardiovascular Disease | DX: I48.0 Paroxysmal atrial fibrillation (principal); I25.10 Atherosclerotic heart disease of native coronary artery without angina pectoris; I34.0 Nonrheumatic mitral (valve) insufficiency | CPT/HCPCS: 93005-PO ==

== ENCOUNTER 2018-12-13 09:32 | Day surgery (SDC) | payer OTHER ==
[2018-12-13] MEDS ORDERED: BENZOCAINE UNIT DOSE SPRAY HURRICAINE MM ONE (09:46)
[2018-12-13] MEDS ORDERED: MIDAZOLAM 2 MG/2 ML VIAL IVP ONE (09:46)
[2018-12-13] MEDS ORDERED: NS 500 ML IV ONE (09:46)
--- NOTE | 2018-12-13 11:00 | PDANEPAE ---
ANE History of Present Illness 78 yo for skinny/cv ANE Past Medical History - Cardiovascular History Hx Hypertension: Yes Hx Arrhythmias: No Hx Chest Pain: No Hx Coronary Artery / Peripheral Vascular Disease: Yes Hx CHF / Valvular Disease: Yes Hx Palpitations: No Cardiovascular History Comment: CARDIOMYOPATHY. MITRAL REGURG. PAROXYSMAL ATRIAL FIBRILLATION/FLUTTER - Pulmonary History Hx COPD: No Hx Asthma/Reactive Airway Disease: No Hx Recent Upper Respiratory Infection: No Hx Oxygen in Use at Home: No Hx Sleep Apnea: Yes Pulmonary History Comment: HAS NASAL DEVICE SLEEP APNEA. PULMONARY HTN. MILD SLEEP APNEA W/CPAP - Neurologic History Hx Cerebrovascular Accident: No Hx Seizures: Yes Hx Dementia: Yes Neurologic History Comment: RESULT OF HEAD TRAUMA AND HAS EPILEPSY MANAGED WITH MEDS - Endocrine History Hx Diabetes: No Endocrine History Comment: HYPOTHYROID - Renal History Hx Renal Disorders: No - Liver History Hx Hepatic Disorders: No - Neurological & Psychiatric Hx Hx Neurological and Psychiatric Disorders: Yes Neurological / Psychiatric History Comment: MEMORY LOSS. ANXIETY/DEPRESSION - Cancer History Hx Cancer: No - Congenital Disorder History Hx Congenital Disorders: No - Other Health History Other Health History: OSTEOPENIA - Chronic Pain History Chronic Pain: Yes - Surgical History Prior Surgeries: R ARIC. KISHORE CATARACT. EXC LT THUMB MASS. PARTIAL THYROIDECTOMY. AUGMENTATION. HEAD TRAUMA PLATE PLACED 1992. VEIN LIGATION/ STRIPPING. HYSTERECTOMY. T&A ANE Review of Systems Review of Systems: - Exercise capacity METS (RN): 3 METS ANE Patient History - Allergies Allergies/Adverse Reactions: meperidine HCl [From Demerol] Allergy (Verified 07/07/18 09:33) meperidine HCl Allergy (Unknown, Uncoded 07/08/18 12:16) - Home Medications Home Medications: Levothyroxine [Synthroid 75 mcg (*)] 75 mcg PO DAILY06 12/24/12 [Last Taken 03/17] clonazePAM [klonoPIN (*)] 1 mg PO DAILY PRN 12/24/12 [Last Taken 07/07/18 0.5MG] Cholecalciferol (Vitamin D3) [Vitamin D3] 2,000 unit PO DAILY 08/31/14 [Last Taken 11/13/16] busPIRone [Buspar (*)] 5 mg PO DAILY 05/19/16 [Last Taken 07/07/18] lamOTRIGine [Lamotrigine] 150 mg PO DAILY 10/14/16 [Last Taken 07/06/18] Propafenone HCl Sr [Rythmol Sr 225mg (*)] 225 mg PO BID 11/13/16 [Last Taken ] Diltiazem HCl [Dilt-Xr] 120 mg PO DAILY 04/21/17 [Last Taken Unknown] LAMOTRIGINE 250 mg PO HS 04/21/17 [Last Taken 07/06/18] Acetaminophen [Tylenol ES 500 mg (*)] 500 - 1,000 mg PO BID PRN 07/07/18 [Last Taken 07/07/18 500MG] busPIRone [Buspar (*)] 10 mg PO HS 07/07/18 [Last Taken 07/06/18] lamoTRIgine [LaMICtal] 25 mg PO DAILY 07/07/18 [Last Taken 07/06/18] - NPO status NPO Status: no food or drink >8 hours - Smoking Hx Smoking Status: Never smoked ANE Physical Exam - Airway Neck exam: FROM Mallampati Score: Class 2 Mouth exam: normal dental/mouth exam - Pulmonary Pulmonary: no respiratory distress - Cardiovascular Cardiovascular: regular rate and rhythym - ASA Status ASA Status: III ANE Anesthesia Plan Anesthesia Plan: GA with mask
[2018-12-13] MEDS ORDERED: PROPOFOL 200 MG/20 ML VIAL ONE ×2 (11:01→11:43)
[2018-12-13] MEDS ORDERED: ATROPINE SULFATE 1 MG/10 ML SYR ONE (11:46)
--- NOTE | 2018-12-13 11:47 | PDHPUP ---
History & Physical Update H&P update statement: This history and physical update is based on an assessment of the patient which was completed after admission or registration (within 24 hours), but prior to the surgery/procedure. Pt is here for BETHANY for eval for possible Watchman in the setting of AFib. Risks and benefits discussed. Pt agreeable to pursue. H&P update: H&P reviewed & patient examined, no change in patient's condition since H&P completed
--- NOTE | 2018-12-13 12:58 | POSTANESTH ---
Post Anesthetic Evaluation Cardiovascular Status: Normal, Stable Respiratory Status: Normal, Stable Level of Consciousness/Mental Status: Can Participate in Eval Pain Control: Adequate, Prn Tx Ordered Nausea/Vomiting Control: Adequate, Prn Tx Ordered Complications Possibly Related to Anesthesia: None Noted
--- NOTE | 2018-12-13 14:29 | CPR ---
[f rep st] NONINVASIVE CARDIAC PROCEDURE REPORT DATE OF PROCEDURE: 12/13/2018 PROCEDURE PERFORMED: Transesophageal echocardiogram. INDICATION FOR PROCEDURE: Preoperative evaluation in anticipation of Watchman closure device. DESCRIPTION OF PROCEDURE: After informed consent was obtained for transesophageal echocardiogram and anesthesia, patient was sedated with propofol. After appropriate level of sedation was achieved, TE E was passed through a bite block without complication. BETHANY imaging was used to obtain pictures of t he left atrial appendage at 0 degrees, 45 degrees, 90 degrees, and 135 degrees. Images of the left v entricle, as well as mitral valve were obtained. Please see echo report for full details. The patient tolerated the procedure well. There were no postoperative complications. CONCLUSION: Patient will follow up with her primary car dealer, Dr. Marcelo Irvin, for further disc ussion regarding Watchman. /[id number]/MODL
--- NOTE | 2018-12-13 17:34 | ECHO ---
[email or web address] [address] [address] Main: [phone] Echocardiography Examination Transesophageal Name: TAY PLATA MR#: [id number] Study Date: 12/13/2018 Study Time: 10:52 AM Date of : 1940 Age: 78 year(s) Height: ( ) Weight: ( ) BSA: Gender: Female Examination: BETHANY Contrast: Image Quality: Adequate Rhythm: Heart Rate: BP: / Indication: Pre Watchman Procedure Staff Referring Physician: Advertising Coordinator: Nydia Alfonso RDCS Reading Physician: Nik Daugherty MD Requesting Provider: Ordering Physician: Nik Daugherty Indication: Pre Watchman Acute complication: None Measurements AV/MV Label Value Normal Value AV PGmax 5 mmHg AV Vmax 1.1 m/s Conclusions Left Ventricle: The EF is visually estimated to be 60 %. Right Ventricle: Right ventricular systolic function is normal. Left Atrium: At 0 degrees, the SUKUMAR measures 2.3 cm by 1.4 cm. At 45 degrees, the SUKUMAR measures 2.8 cm by 1.4 cm. At 90 degrees, the SUKUMAR measures 2.3 cm by 1.8 cm. At 135 degrees, the SUKUMAR measures 1.9 cm by 1.4 cm.. Left Atrium Appendage: No thrombus is identified. Pericardium: No pericardial effusion. Patient: TAY PLATA Study Date: 12/13/2018 Page 1 of 2 10:52 AM Findings Left Ventricle: Left ventricle is normal in size. The EF is visually estimated to be 60 %. Left ventricle wall thickness is normal. There are no regional wall motion abnormalities. Right Ventricle: Normal size right ventricle. Right ventricular systolic function is normal. Left Atrium: At 0 degrees, the SUKUMAR measures 2.3 cm by 1.4 cm. At 45 degrees, the SUKUMAR measures 2.8 cm by 1.4 cm. At 90 degrees, the SUKUMAR measures 2.3 cm by 1.8 cm. At 135 degrees, the SUKUMAR measures 1.9 cm by 1.4 cm.. Left Atrium Appendage: Good color flow doppler in the left atrial appendage. No thrombus is identified. IAS: Normal appearing atrial septum. Mitral Valve: Mitral valve appears structurally normal. Mild mitral regurgitation. Aortic Valve: Aortic leaflets are structurally normal. Trivial aortic regurgitation is present. Tricuspid Valve: Tricuspid valve leaflets are structurally normal. Mild tricuspid regurgitation. Pulmonic Valve: Pulmonic leaflets are normal in appearance. Pericardium: No pericardial effusion. Exam Details Procedure Ordered: BETHANY Procedure Status: Routine study Image Quality: Adequate Consent: Risks, alternatives of procedure explained to patient, informed consent obtained Probe Insertion: Attending gin feeder Facility Location: Cardiac Echo 1 (No Signature Object) Patient: TAY PLATA Study Date: 12/13/2018 Page 2 of 2 10:52 AM [id number]
== END 2018-12-13 15:11 | disposition home or self-care (01) ==
LOC: FCATH 09:32
PROVIDERS: ATTEND Internal Medicine Cardiovascular Disease
PROC: B245ZZ4 Ultrasonography of Left Heart, Transesophageal (ICD-10-PCS; principal; 2018-12-13)
DX: I48.0 Paroxysmal atrial fibrillation (principal); G40.909 Epilepsy, unspecified, not intractable, without status epilepticus; I42.8 Other cardiomyopathies; I48.92 Unspecified atrial flutter; F41.9 Anxiety disorder, unspecified; I25.10 Atherosclerotic heart disease of native coronary artery without angina pectoris; I10 Essential (primary) hypertension; E03.9 Hypothyroidism, unspecified; I34.0 Nonrheumatic mitral (valve) insufficiency; I27.20 Pulmonary hypertension, unspecified; Z86.12 Personal history of poliomyelitis; Z87.820 Personal history of traumatic brain injury
CPT/HCPCS: J0461; J2704